=== PATIENT | female | born 1965 | race Caucasian/White ===

== ENCOUNTER 2018-04-25 12:36 | Emergency (ER) | payer BC, SELFPAY ==
[2018-04-25 12:40] VITALS: BP 128/67; PULSE 72; RESP 16; TEMP 36.4; O2SAT 98
--- NOTE | 2018-04-25 12:41 | DI.CT_ITS ---
SYMPTOMS/DIAGNOSIS: RT FLANK PAIN, HEMATURIA ABDOMINAL AND PELVIC CT: CT examination of the abdomen and pelvis was performed without contrast administration. The visualized portions of the liver and spleen are unremarkable. The visualized lung bases are clear. There is a probable gallstone. Ultrasound correlation suggested. No gross biliary dilatation seen. The pancreas is grossly unremarkable by noncontrast criteria. The adrenals unremarkable. There are nonobstructing right renal calculi. No left renal calculus or ureteral calculus seen. Low attenuation 15 mm in diameter left upper pole renal mass is identified consistent with cyst. The urinary bladder appears to have a thickened wall. Findings could represent cystitis. No gross bowel pathology identified. The appendix is unremarkable. There is a small quantity of free fluid in the pelvis which is nonspecific. No gross abdominal or pelvic adenopathy seen. The abdominal aorta is of normal diameter. No significant abdominal wall hernia seen. CONCLUSION: 1. Right sided nonobstructing renal calculi. 2. Bladder wall thickening, consider cystis. 3. Nonspecific free fluid in the pelvis. 4. Probable cholelithiasis, confirmation with abdominal ultrasound suggested.
--- NOTE | 2018-04-25 12:44 | ED.GENADUL_ITS ---
Discharge Plan Disposition Patient Disposition: HOME Condition: Poor Discharge Details Chief Complaint: Urinary Clinical Impression: Tick-borne disease, Pyelonephritis Primary Care Provider: Luther Toure ED Provider: Marlyn Mulligan Home Meds and New Rx's Prescriptions: New ciprofloxacin HCl 500 mg tablet 500 mg PO BID Qty: 14 RF: 0 doxycycline hyclate 100 mg tablet,delayed release (DR/EC) 100 mg PO BID Qty: 42 RF: 0 ondansetron [Zofran ODT] 4 mg tablet,disintegrating 4 mg PO TID PRN (Reason: nausea and vomiting) 5 Days Qty: 7 RF: 0 Continue multivitamin 1 EACH tablet 1 ea PO DAILY RF: 0 ketorolac 10 MG tablet 10 mg PO Q6H PRN RF: 0 levothyroxine [Synthroid] 75 MCG tablet 75 mcg PO DAILY RF: 0 metoclopramide HCl [Reglan] 10 MG tablet 10 mg PO DAILY RF: 0 cholecalciferol (vitamin D3) [Vitamin D3] 2,000 UNIT capsule 2,000 unit PO DAILY RF: 0 Discharge Instructions Instructions: Lyme Disease (ED), Urinary Tract Infection in Women (ED) Additional Instructions: Encourage hydration. Please keep upcoming appointment with primary care at 2: 30 PM on Monday. Take doxycycline for presumed tickborne illness, will take 5 business days to get the results from this. Will contact with any positive results. Please take ciprofloxacin for presumed pyelonephritis (kidney infection) as prescribed. Please discuss cessation of antibiotics with primary care as results come back. Keep covered when in the sun. If you develop tendon pain please discuss immediately with primary care. If you develop chest pain, shortness of breath, difficulty breathing, palpitations, inability to stay hydrated or other new/worsening symptoms please seek care urgently once again Referrals: Luther Toure [Primary Care Provider] - 04/27/18 2:30 pm Medical Decision Making <RUFINO Varghese - Last Filed: 04/25/18 16:30> [facility] Narrative Medical decision making narrative: Patient presents today with chief complaint of right flank pain that radiates into the right groin. Was sent here by PCP with concern for obstructed stone. On exam, she has right flank pain and pain in the inferior lateral abdominal wall. No pain over McBurney's point, negative Leach sign. She reports the pain is well maintained at this point after receiving IM Toradol at primary care's office. She reports that she has noted darkened urine, it was positive for RBCs at primary care with no signs of infection. Will obtain urinalysis, CBC, CMP and renal CT. Discussed plan the patient is in agreement. CT reviewed by radiologist who advised that there is incidental finding of gallstone advised follow-up with ultrasound in the future. He did note right renal stones with no hydronephrosis, no stones in the ureter. He did note bladder wall thickening consistent with cystitis and free fluid in the pelvis. Patient does not have white count, platelets are low at 101. Kidney function is appropriate. However, her AST, ALT and alk phos are elevated. I did question the patient on this and she has never had elevation like this historically she is aware of. She denies any alcohol consumption. Consulted with Lavonne Espinal NP who the primary care physician had been in contact with previously. We discussed the findings of the laboratory evaluation as well as CT. We particularly discussed the findings of the UA which was suspicious for moderate leukocyte esterase. She advised at this time there is no surgical intervention warranted which was the patient and the primary care is primary concern. With the findings of the elevated liver enzymes, she advised follow- up with this. Will obtain a abdominal ultrasound. She advised that this is without significant abnormality she would treat for pyelonephritis with ciprofloxacin. Ultrasound significant for multiple gallstones and no evidence of acute cholecystitis. Patient reports nausea, given IV Zofran. She reports complete resolution of nausea. Discussed results with the patient. I reviewed labs again and am concerned that with her low platelets and elevated LFT, that this may be tick born illness. Questioned the patient again, she advises now that she has been ill for the past 2 months. States she has been fatigued, has had diminished appetite. 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 EKG reviewed by Dr. Gates for possible block associated with tick born illness, she denies CP or palpitations. No block noted. Contacted PCP office, spoke with nursing staff, they advise they havenot assessed LFT historically. However, when platelets were checked last in 2016, they were 201. Was able to make appointment with PCP in 2 days. Patient will be treated prophylactically with doxycycline has been primarily concern for tickborne illness. Patient will be also placed on ciprofloxacin as advised by Lavonne Espinal for pyelonephritis. Advised that her discomfort in the right flank may be associated with tickborne illness. However, I would rather cover the end to the antibiotic later once the cultures have come back. We discussed timeline for tick panel and urine cultures. I advised that she encourage hydration. Tylenol and/or ibuprofen as needed for discomfort. Patient will be prescribed Zofran to help with nausea. I did discuss this with Dr. Monterroso he has both ciprofloxacin and Zofran are QT prolonging, he advised that with her EKG findings this would be safe for the patient is short-term. I also advised that she begin a probiotic while on the 2 antibiotics. We discussed new/worsening symptoms once he care urgently once again. She will follow up with her primary care in 2 days. All of her questions and concerns were addressed and she is in agreement with this plan. <Roberto Gates MD - Last Filed: 04/25/18 16:06> ECG Data Attestation: I personally reviewed and interpreted this ECG (s) as follows: Prior ECG tracings: not available for review Interpretation: normal sinus rhythm, rate of 60, normal prs, qtc, qrs, normal axis, no acute ischemic findings HPI - General Adult <RUFINO Varghsee - Last Filed: 04/25/18 16:30> General Mode of arrival: ambulatory . Date/Time Provider Initiated Documentation: 04/25/18 12:41 . Limitations to Documentation: no limitations . Information obtained by: patient . HPI Narrative: Patient is a 53-year-old female symptoms from her primary care office with chief complaint of right flank pain. She reports the pain is been present for approximately 36 hours. Is noted dark urine. Heme positive at doctor's office. Advised no signs of infection in the office. She denies any fevers or chills. States the pain radiates from the right flank down towards the right side of her groin. No change in bowel habits. Related Data Home Medications Medication Instructions Recorded Confirmed cholecalciferol (vitamin D3) 2,000 unit PO DAILY NS 06/12/17 04/25/18 [Vitamin D3] ketorolac 10 mg PO Q6H PRN tab-cap NS 06/12/17 04/25/18 levothyroxine [Synthroid] 75 mcg PO DAILY tab-cap NS 06/12/17 04/25/18 metoclopramide HCl [Reglan] 10 mg PO DAILY tab-cap NS 06/12/17 04/25/18 multivitamin 1 ea PO DAILY NS 06/12/17 04/25/18 Previous Rx's Medication Instructions Recorded ciprofloxacin HCl 500 mg PO BID #14 tab 04/25/18 doxycycline hyclate 100 mg PO BID #42 tab 04/25/18 ondansetron [Zofran ODT] 4 mg PO TID PRN 5 Days #7 tab 04/25/18 Allergies Allergy/AdvReac Type Severity Reaction Status Date / Time sulfamethoxazole Allergy Unverified 04/25/18 12:43 [From Bactrim] trimethoprim [From Bactrim] Allergy Unverified 04/25/18 12:43 General Stated Complaint: Urinary MARIS: 3 Review of Systems <RUFINO Varghese - Last Filed: 04/25/18 16:30> Constitutional Reports as per HPI, Reports body ache(s), Reports chills, Reports fatigue, Reports fever(s), Denies headache(s), Reports malaise and Reports poor appetite Eyes Patient Denies change in vision ENT Denies headache(s) Cardiovascular Denies chest pain, Denies chest pain at rest, Denies chest pain with activity, Denies pedal edema, Denies irregular heart rhythm, Denies leg edema, Denies lightheadedness, Denies dyspnea and Denies dyspnea on exertion Respiratory Denies cough, Denies dyspnea and Denies dyspnea on exertion Gastrointestinal Reports as per HPI, Reports abdominal pain, Denies change in bowel habits, Reports nausea, Reports vomiting (vomited x 1) and Denies hematemesis Genitourinary Reports as per HPI, Denies urinary frequency, Denies difficulty voiding, Denies dyspareunia, Denies dysuria, Denies pelvic pain, Reports flank pain (right) and Denies urinary urgency Musculoskeletal Denies abnormal gait and Reports myalgias Integumentary/Breasts Denies rash and Denies skin pain Neurologic Denies abnormal speech, Denies abnormal gait, Denies behavioral changes, Denies headache(s) and Denies focal weakness Psychiatric Denies behavioral changes Endocrine Reports fatigue Exam <RUFINO Varghese Last Filed: 04/25/18 16:30> Const General: cooperative, no acute distress, well developed, well groomed and ill appearing (patient appears uncomfortable and is noted to be pale) Nutritional Appearance: thin Orientation: alert and awake HENID Head: normal to inspection Mouth: mucous membranes dry (patient appears dry) Resp Effort & Inspection: normal respiratory effort, able to speak in complete sentences and no respiratory distress Auscultation: clear to auscultation bilaterally, no rales, no rhonchi and no wheezes Cardio Rate: regular rate Rhythm: regular rhythm Heart Sounds: S1 normal and S2 normal GI Inspection: no edema, non-distended, incision (well healed incisions), no large pannus and no visible herniation Palpation: soft, no hepatosplenomegaly, not firm, no guarding, no hepatomegaly, no hernias, no masses, not rigid and nontender (negative Murphies, no pain over McBurnies point) Percussion: normal to percussion Auscultation: normal bowel sounds Back/Spine/Pelvis Back: CVA tenderness (right side), No erythema and No warmth Skin General skin exam: no rashes or lesions noted Lesions: no lesions Rashes: no rashes Trauma: no lacerations or abrasions Neuro General: alert, awake and oriented x3 Cognition: normal cognition Speech: speech normal Gait: normal gait Extrem General: normal to inspection, no pedal edema, no calf tenderness and normal gait Psych Appearance: grossly normal and well kempt Mental Status: mental status grossly normal Speech and Movement: speech and movement normal Mood: congruent mood Affect: normal affect Course <RUFINO Varghese - Last Filed: 04/25/18 16:30> Vital Signs Temperature 36.4 C L 04/25/18 12:40 Pulse 72 04/25/18 12:40 Respiratory Rate 16 04/25/18 12:40 Blood Pressure 128/67 04/25/18 12:40 Pulse Oximetry 98 04/25/18 12:40 Temperature 36.4 C L 04/25/18 12:40 Pulse 72 04/25/18 12:40 Respiratory Rate 16 04/25/18 12:40 Blood Pressure 128/67 04/25/18 12:40 Pulse Oximetry 98 04/25/18 12:40
[2018-04-25 12:59] LABS: Bilirubin Negative (Negative); Blood Moderate (Negative); Clarity Cloudy; Glucose Negative (Negative); Ketones Negative (Negative); Leukocyte Esterase Moderate (Negative); Nitrite Negative (Negative); Urobilinogen 0.2 EU/dL (Up TO 0.2)
[2018-04-25] MEDS: Normal Saline 1,000 ML 1000 ML IV (13:00)
[2018-04-25 13:06] LABS: Bacteria Many HPF (Negative); WBC >50 HPF (0-5)
[2018-04-25 13:07] LABS: C & S Indicated? Yes
[2018-04-25 13:21] LABS: Abs Immature Grans 0.01 k/cumm (0.0-0.09); Absolute Basophil Count 0.01 k/cumm (0.0-0.2); Absolute Eosinophil Count 0.03 k/cumm (0.0-0.7); Absolute Lymphocyte Count 0.58 k/cumm (1.2-3.4); Absolute Monocyte Count 0.56 k/cumm (0.11-0.7); Absolute Neutrophil Count 5.26 k/cumm (1.2-6.7); Basophils % 0.2; Eosinophils % 0.5; HCT 34.8 % (36.0-46.0); HGB 12.1 g/dL (12.0-15.5); Immature Grans % 0.2; Mean Corp. HGB Concentration 34.8 g/dL (32.0-36.0); Mean Corpuscular Hemoglobin 31.2 pg (27.0-33.0); Mean Corpuscular Volume 89.7 fL (80-95); Mean Platelet Volume 10.2 fL (8.0-11.0); Monocytes % 8.7; Neutrophils % 81.4; Platelet Count 102 x1000/uL (130-400); RBC 3.88 m/cumm (4.00-5.20); RBC Distribution Width 12.4 % (11.7-14.6); White Blood Cell Count 6.45 k/cumm (4.4-10.8)
[2018-04-25 13:32] LABS: ALT 243 U/L (12-78); AST 218 U/L (15-37); Albumin 3.2 g/dL (3.4-5.0); Alkaline Phosphatase 124 U/L (46-116); BUN 14 mg/dL (7-18); Bilirubin, Total 1.1 mg/dL (0.2-1.0); CREATININE 0.61 mg/dL (0.55-1.02); Calcium 8.2 mg/dL (8.5-10.1); Chloride 98 mmol/L (98-107); Glucose 130 mg/dL (70-100); Potassium 3.4 mmol/L (3.5-5.1); Sodium 134 mmol/L (136-145); Total Protein 6.3 g/dL (6.4-8.2)
[2018-04-25 13:38] LABS: Anion Gap 7.1 mmol/L (3-11); CO2 28.9 mmol/L (21.0-32.0)
--- NOTE | 2018-04-25 15:09 | DI.US_ITS ---
SYMPTOMS/DIAGNOSIS: RIGHT FLANK PAIN, ELEVATED ALT/AST ABDOMINAL ULTRASOUND: Visualized liver parenchyma is normal in appearance. Note is made of cholelithiasis with a single mobile gallstone in the gallbladder fundus. Gallbladder wall is of normal diameter and no pericholecystic fluid collection or biliary dilatation is seen. The pancreas is unremarkable as visualized. The spleen and kidneys are unremarkable in appearance. Abdominal aorta and IVC are of normal diameter. CONCLUSION: Cholelithiasis.
[2018-04-25] MEDS: Ondansetron 4 MG/2 ML VIAL IVP (15:33)
[2018-04-25 16:20] VITALS: BP 137/70; PULSE 66; RESP 16; TEMP 36.5; O2SAT 98
[2018-04-26 11:34] LABS: Lyme Ab w Rflx to Lyme Confirm Negative
[2018-04-27 21:12] LABS: Anaplasma phagocytophilum Negative (Negative); B. miyamotoi PCR Negative (Negative); Babesia divergens/MO-1 Negative (Negative); Babesia duncani Negative (Negative); Babesia microti Negative (Negative); Ehrlichia chaffeensis Negative (Negative); Ehrlichia ewingii/canis Negative (Negative); Ehrlichia muris eauclairensis Negative (Negative)
== END 2018-04-25 16:21 | disposition home or self-care (01) ==
PROVIDERS: Emergency Provider Physician Assistant; PCP Family Medicine
DX: N12 Tubulo-interstitial nephritis, not specified as acute or chronic (principal); R53.83 Other fatigue; W57.XXXA Bitten or stung by nonvenomous insect and other nonvenomous arthropods, initial encounter; R94.5 Abnormal results of liver function studies
CPT/HCPCS: 36415; 80053; 87077; 93005; 96361; 96374; 99285; 74176; 76700; 81003; 81015; 85025; 86618; 87086; 87186; 87798; 93010; J2405

== ENCOUNTER 2018-10-07 21:37 | Emergency (ER) | payer BC, SELFPAY ==
[2018-10-07] VITALS (39 sets, daily range): BP systolic 58–120; BP diastolic 32–87; PULSE 58–118; RESP 10–41; TEMP 36.4; O2SAT 96–100
[2018-10-07] MEDS: Normal Saline 1,000 ML 1000 ML IV ×2 (21:40→23:45)
--- NOTE | 2018-10-07 21:51 | ED.GENADUL_ITS ---
Discharge Plan Disposition Patient Disposition: [facility] Condition: Critical Discharge Details Chief Complaint: Abd Prob Clinical Impression: Retroperitoneal hemorrhage, Hypotension, Abdominal pain Primary Care Provider: Luther Toure ED Provider: Teresa Winters Home Meds and New Rx's Prescriptions: No Action multivitamin 1 EACH tablet 1 ea PO DAILY RF: 0 ketorolac 10 MG tablet 10 mg PO Q6H PRN RF: 0 levothyroxine [Synthroid] 75 MCG tablet 75 mcg PO DAILY RF: 0 metoclopramide HCl [Reglan] 10 MG tablet 10 mg PO DAILY RF: 0 cholecalciferol (vitamin D3) [Vitamin D3] 2,000 UNIT capsule 2,000 unit PO DAILY RF: 0 ciprofloxacin HCl 500 mg tablet 500 mg PO BID Qty: 14 RF: 0 doxycycline hyclate 100 mg tablet,delayed release (DR/EC) 100 mg PO BID Qty: 42 RF: 0 Medical Decision Making 53-year-old female with a history of hypothyroidism, hysterectomy who presents with sudden onset of abdominal pain and vomiting x 1 over the past 3 hours. Patient required assistance getting out of car. She was brought back to room in a wheelchair and was slumped over to the side, pale, and decreased responsiveness. Patient was wearing a zio patch which stated was for recent fluctuations in heart rate thought to be due to her thyroid. Patient was able to answer questions, mainly complaining of severe diffuse abdominal pain. She denies any chest pain or shortness of breath. She stated she thought her symptoms were due to gas. Systolic blood pressure 120 on arrival. Patient appears pale, slightly uncomfortable, blood pressure down trended to systolic of 90s. Heart rate remained within normal limits, but also up trending from 60s-80s. Abdomen soft, diffusely tender, some guarding, no rigidity. Portable chest x-ray revealed no free air. EKG noted a rate of 67, sinus, no acute ST elevation or depression. Patient had 2 large-bore peripheral IVs placed upon arrival. Patient was given a dose of morphine, Zofran and IV fluids on arrival. Blood pressure began to down trend, systolic as low as 60s. Patient complained of persistent abdominal pain. There is no pulsatile mass. Concern for acute abdomen, differential diagnosis ruptured AAA, bowel perforation, hemorrhage, small bowel obstruction. 2 units of uncrossed match blood ordered per Labs reviewed and hemoglobin stable at 13. Potassium 3.1. Troponin negative. CT noted a retroperitoneal fluid is suspicious for hemorrhage, could be perforated duodenal ulcer. No acute source of extravasation/bleeding noted. 2330 --with [facility] surgery Dr. Reyes - accepts pt for transfer to ED. Reviewed images and unsure of diagnosis. Pt's BP improved to systolic of low 100s. Discussed that there does not appear to be need for emergent OR here at [facility] and can transfer to [facility] now with continued prbc transfusion. Will continue ivf, pain control. Pt given total of 3 L IVF, 2 units of blood here and will send with 1 unit prbc. Patient and informed of plan and agreeable with transfer. BP improved to systolic of low 100s. Medical Records Medical records reviewed: Yes I reviewed the patient's medical records. Imaging Data Radiologic Study: Radiologist's impression: CT Angiography Abdomen and Pelvis With Contrast EXAM DATE/TIME: 10/07/2018 10:30 PM FINDINGS: VASCULATURE: Aorta: No aortic aneurysm. No aortic dissection. Celiac trunk and mesenteric arteries: No occlusion or significant stenosis. Renal arteries: No occlusion or significant stenosis. Right iliac arteries: No occlusion or significant stenosis. Right femoral/popliteal arteries: No occlusion or significant stenosis of the imaged proximal femoral artery. The popliteal artery was not imaged. Left iliac arteries: No occlusion or significant stenosis. Left femoral/popliteal arteries: No occlusion or significant stenosis of the imaged proximal femoral artery. The popliteal artery was not imaged. ABDOMEN: Liver: No mass. Gallbladder and bile ducts: Unremarkable. No calcified stones. No ductal dilation. Pancreas: Unremarkable. No mass. No ductal dilation. Spleen: 3 cm splenic lesion, unchanged in size and likely represents hemangioma. Adrenals: Unremarkable. No mass. Kidneys and ureters: Unremarkable. No solid mass. No hydronephrosis. Stomach and bowel: High-density retroperitoneal fluid suspicious for hemorrhage, predominantly surrounding the pancreas and duodenum, could be related to perforated duodenal ulcer or pancreatitis with other etiologies not excluded. Colonic diverticula. Appendix: No evidence of appendicitis. PELVIS: Bladder: Unremarkable. No mass. Reproductive: Unremarkable as visualized. ABDOMEN and PELVIS: Intraperitoneal space: Small ascites with areas of minimal increased density likely related to blood products. Bones/joints: No acute fracture. No dislocation. Soft tissues: Unremarkable. Lymph nodes: Unremarkable. No enlarged lymph nodes. IMPRESSION: 1. High-density retroperitoneal fluid suspicious for hemorrhage, predominantly surrounding the pancreas and duodenum, could be related to perforated duodenal ulcer or pancreatitis with other etiologies not excluded. 2. Small ascites with areas of minimal increased density likely related to blood products. XR Chest, 1 View EXAM DATE/TIME: 10/07/2018 9:49 PM FINDINGS: Lungs: Unremarkable. No consolidation. Pleural space: Unremarkable. No pleural effusion. No pneumothorax. Heart/Mediastinum: Unremarkable. No cardiomegaly. Bones/joints: Unremarkable. IMPRESSION: No acute findings. Lab Data Lab results reviewed: Yes I reviewed the patient's lab results. 10/07/18 22:20 Urine - Reflex from Ua Urine Culture - Pending Laboratory Tests Range/Units 10/07/18 10/07/18 10/07/18 22:00 22:00 22:00 WBC (4.4-10.8) k/cumm 12.17 H RBC (4.00-5.20) m/cumm 4.13 Hgb (12.0-15.5) g/dL 13.0 Hct (36.0-46.0) % 37.2 MCV (80-95) fL 90.1 MCH (27.0-33.0) pg 31.5 MCHC (32.0-36.0) g/dL 34.9 RDW (11.7-14.6) % 12.5 Plt Count (130-400) x1000/uL 255 MPV (8.0-11.0) fL 10.3 Immature Gran % 0.2 Neutrophils % 68.9 Lymphocytes % 25.0 Monocytes % 5.1 Eosinophils % 0.6 Basophils % 0.2 Absolute Neutrophils (1.2-6.7) k/cumm 8.39 H Absolute Lymphocytes (1.2-3.4) k/cumm 3.04 Absolute Monocytes (0.11-0.7) k/cumm 0.62 Absolute Eosinophils (0.0-0.7) k/cumm 0.07 Absolute Basophils (0.0-0.2) k/cumm 0.02 PT (9.3-11.0) sec INR (0.9-1.1) APTT (21.0-31.4) sec Sodium (136-145) mmol/L 142 Potassium (3.5-5.1) mmol/L 3.1 L Chloride (98-107) mmol/L 102 Carbon Dioxide (21.0-32.0) mmol/L 28.0 Anion Gap (3-11) mmol/L 12.0 H BUN (7-18) mg/dL 18 Creatinine (0.55-1.02) mg/dL 0.80 Estimated GFR/1.73 m2 (mL/min/1.73m2) >= 60.00 Glucose (70-100) mg/dL 196 H Calcium (8.5-10.1) mg/dL 9.4 Magnesium (1.8-2.4) mg/dL 1.8 Total Bilirubin (0.2-1.0) mg/dL 0.4 AST (15-37) U/L 25 ALT (12-78) U/L 46 Alkaline Phosphatase (46-116) U/L 90 Troponin I (0.00-0.06) ng/mL < 0.02 Total Protein (6.4-8.2) g/dL 7.2 Albumin (3.4-5.0) g/dL 4.0 Lipase (73-393) U/L 252 TSH (0.358-3.74) uIU/mL Free T4 (0.76-1.46) ng/dL Urine Color (Yellow) Urine Clarity Urine pH (5-8) Ur Specific [place] (1.005-1.025) Urine Protein (Negative) mg/dL Urine Ketones (Negative) mg/dL Urine Blood (Negative) Urine Nitrite (Negative) Urine Bilirubin (Negative) Urine Urobilinogen (Up TO 0.2) EU/dL Ur Leukocyte Esterase (Negative) Urine RBC (0-2) Urine WBC (0-5) HPF Ur Epithelial Cells (Negative) HPF Urine Crystals (Negative) HPF Urine Bacteria (Negative) HPF Urine Casts (Negative) LPF Urine Mucus (Negative) Urine Other (Negative) Ur Culture Indicated? Urine Glucose (Negative) mg/dL Patient ABO/Rh O Positive Antibody Screen Negative Crossmatch See Detail Range/Units 10/07/18 10/07/18 10/07/18 22:00 22:00 22:20 WBC (4.4-10.8) k/cumm RBC (4.00-5.20) m/cumm Hgb (12.0-15.5) g/dL Hct (36.0-46.0) % MCV (80-95) fL MCH (27.0-33.0) pg MCHC (32.0-36.0) g/dL RDW (11.7-14.6) % Plt Count (130-400) x1000/uL MPV (8.0-11.0) fL Immature Gran % Neutrophils % Lymphocytes % Monocytes % Eosinophils % Basophils % Absolute Neutrophils (1.2-6.7) k/cumm Absolute Lymphocytes (1.2-3.4) k/cumm Absolute Monocytes (0.11-0.7) k/cumm Absolute Eosinophils (0.0-0.7) k/cumm Absolute Basophils (0.0-0.2) k/cumm PT (9.3-11.0) sec 9.9 INR (0.9-1.1) 1.0 APTT (21.0-31.4) sec 19.8 L Sodium (136-145) mmol/L Potassium (3.5-5.1) mmol/L Chloride (98-107) mmol/L Carbon Dioxide (21.0-32.0) mmol/L Anion Gap (3-11) mmol/L BUN (7-18) mg/dL Creatinine (0.55-1.02) mg/dL Estimated GFR/1.73 m2 (mL/min/1.73m2) Glucose (70-100) mg/dL Calcium (8.5-10.1) mg/dL Magnesium (1.8-2.4) mg/dL Total Bilirubin (0.2-1.0) mg/dL AST (15-37) U/L ALT (12-78) U/L Alkaline Phosphatase (46-116) U/L Troponin I (0.00-0.06) ng/mL Total Protein (6.4-8.2) g/dL Albumin (3.4-5.0) g/dL Lipase (73-393) U/L TSH (0.358-3.74) uIU/mL 6.21 H Free T4 (0.76-1.46) ng/dL 1.06 Urine Color (Yellow) Yellow Urine Clarity Clear Urine pH (5-8) 5.5 Ur Specific [place] (1.005-1.025) >= 1.030 H Urine Protein (Negative) mg/dL 100 H Urine Ketones (Negative) mg/dL 80 H Urine Blood (Negative) Negative Urine Nitrite (Negative) Negative Urine Bilirubin (Negative) Negative Urine Urobilinogen (Up TO 0.2) EU/dL 0.2 Ur Leukocyte Esterase (Negative) Trace H Urine RBC (0-2) 3-5 H Urine WBC (0-5) HPF 5-10 Ur Epithelial Cells (Negative) HPF Rare Urine Crystals (Negative) HPF Negative Urine Bacteria (Negative) HPF Moderate Urine Casts (Negative) LPF Negative Urine Mucus (Negative) Heavy Urine Other (Negative) Negative Ur Culture Indicated? Yes Urine Glucose (Negative) mg/dL 500 H Patient ABO/Rh Antibody Screen Crossmatch ECG Data Attestation: I personally reviewed and interpreted this ECG (s) as follows: Interpretation: Rate of 67, sinus, T wave inversion in V2 seen in previous EKG, no acute ST elevation or depression. QTc 437. QRS 92. HPI General Mode of arrival: ambulatory . Date/Time Provider Initiated Documentation: 10/07/18 21:39 . Limitations to Documentation: no limitations . Information obtained by: patient . HPI Narrative: Patient is a 53-year-old female who presents to the ED with complaint of severe abdominal pain for the past few hours. Patient vomited once in the car. Patient had to be assisted out of the car on arrival to ED due to significant abdominal pain. Patient is currently wearing a zio patch placed by her doctor for recent fluctuations in heart rate thought to be due to her thyroid medication. She denies any recent syncope. Related Data Home Medications Medication Instructions Recorded Confirmed cholecalciferol (vitamin D3) 2,000 unit PO DAILY NS 06/12/17 04/25/18 [Vitamin D3] ketorolac 10 mg PO Q6H PRN tab-cap NS 06/12/17 04/25/18 levothyroxine [Synthroid] 75 mcg PO DAILY tab-cap NS 06/12/17 04/25/18 metoclopramide HCl [Reglan] 10 mg PO DAILY tab-cap NS 06/12/17 04/25/18 multivitamin 1 ea PO DAILY NS 06/12/17 04/25/18 ciprofloxacin HCl 500 mg PO BID #14 tab 04/25/18 doxycycline hyclate 100 mg PO BID #42 tab 04/25/18 Previous Rx's Medication Instructions Recorded ciprofloxacin HCl 500 mg PO BID #14 tab 04/25/18 doxycycline hyclate 100 mg PO BID #42 tab 04/25/18 Allergies Allergy/AdvReac Type Severity Reaction Status Date / Time sulfamethoxazole Allergy Unverified 04/25/18 12:43 [From Bactrim] trimethoprim [From Bactrim] Allergy Unverified 04/25/18 12:43 General MARIS: 3 Review of Systems Review of Systems All systems reviewed & are unremarkable except as noted in HPI and below Constitutional Reports as per HPI, Denies chills and Denies fever(s) Eyes Denies blurry vision ENT Denies dizziness, Denies sore throat and Denies throat swelling Cardiovascular Denies chest pain and Denies dyspnea Respiratory Denies cough and Denies dyspnea Gastrointestinal Reports abdominal pain, Denies diarrhea and Reports vomiting Genitourinary Denies hematuria and Denies dysuria Musculoskeletal Denies back pain and Denies numbness Integumentary/Breasts Denies lesions and Denies rash Neurologic Denies dizziness, Denies focal weakness and Denies numbness Allergic/Immunologic Denies throat swelling PFSH Medical History Breast mass Hypothyroidism Surgical History section Colonoscopy - MAC (07/10/17) Colostomy Hernia repair hysterectomy, partial Family History Father Liver cancer Colon cancer A-fib Social History Smoking and Tabacco status: Never alcohol intake: never substance use type: does not use Exam Const General: cooperative, healthy appearing and no acute distress HENMT Head: normal to inspection Face and sinus: normal facial exam Eyes General: appearance normal, both eyes and all related structures Pupils: PERRL EOM: EOM intact bilaterally Neck Neck: normal visual inspection and No submandibular swelling Lymphatic: no lymphadenopathy noted Chest Chest: normal inspection of the chest and no tenderness Resp Effort & Inspection: normal respiratory effort and able to speak in complete sentences Auscultation: clear to auscultation bilaterally Cardio Rate: regular rate Rhythm: regular rhythm GI Inspection: normal to inspection Palpation: soft, not firm, not rigid and nontender Auscultation: normal bowel sounds Back/Spine/Pelvis Thoracic/Lumbar Spine: thoracic and lumbar spine normal to inspection Pelvis: no pain with anterior-posterior compression Skin General skin exam: no rashes or lesions noted Neuro General: alert, awake and oriented x3 Cognition: normal cognition Speech: speech normal Motor: muscle tone normal throughout Sensory Exam: no sensory deficits noted Extrem General: normal to inspection, full ROM, normal capillary refill, no calf tenderness bilaterally and no edema Psych Appearance: grossly normal Mental Status: mental status grossly normal Speech and Movement: speech and movement normal Affect: normal affect
[2018-10-07] MEDS: Ondansetron 4 MG/2 ML VIAL IVP (21:58)
[2018-10-07 22:10] LABS: Abs Immature Grans 0.03 k/cumm (0.0-0.09); Absolute Basophil Count 0.02 k/cumm (0.0-0.2); Absolute Eosinophil Count 0.07 k/cumm (0.0-0.7); Absolute Lymphocyte Count 3.04 k/cumm (1.2-3.4); Absolute Monocyte Count 0.62 k/cumm (0.11-0.7); Absolute Neutrophil Count 8.39 k/cumm (1.2-6.7); Basophils % 0.2; Eosinophils % 0.6; HCT 37.2 % (36.0-46.0); Immature Grans % 0.2; Mean Corp. HGB Concentration 34.9 g/dL (32.0-36.0); Mean Corpuscular Hemoglobin 31.5 pg (27.0-33.0); Mean Corpuscular Volume 90.1 fL (80-95); Mean Platelet Volume 10.3 fL (8.0-11.0); Monocytes % 5.1; Neutrophils % 68.9; Platelet Count 255 x1000/uL (130-400); RBC 4.13 m/cumm (4.00-5.20); RBC Distribution Width 12.5 % (11.7-14.6); White Blood Cell Count 12.17 k/cumm (4.4-10.8)
--- NOTE | 2018-10-07 22:20 | DI.RAD_ITS ---
SYMPTOMS/DIAGNOSIS: DIFFUSE ABD PAIN, ? FREE AIR PORTABLE CHEST: The cardiac and mediastinal contours have a normal appearance. The lungs are well inflated and clear. No pneumothorax or rib fracture is seen. IMPRESSION: Negative portable chest.
[2018-10-07 22:28] LABS: ALT 46 U/L (12-78); AST 25 U/L (15-37); Alkaline Phosphatase 90 U/L (46-116); BUN 18 mg/dL (7-18); Bilirubin, Total 0.4 mg/dL (0.2-1.0); Calcium 9.4 mg/dL (8.5-10.1); Chloride 102 mmol/L (98-107); Glucose 196 mg/dL (70-100); Lipase 252 U/L (73-393); Magnesium 1.8 mg/dL (1.8-2.4); Potassium 3.1 mmol/L (3.5-5.1); Sodium 142 mmol/L (136-145); Total Protein 7.2 g/dL (6.4-8.2)
[2018-10-07 22:29] LABS: Troponin I < 0.02 ng/mL (0.00-0.06)
[2018-10-07 22:29] LABS: Bilirubin Negative (Negative); Blood Negative (Negative); Clarity Clear; Glucose 500 mg/dL (Negative); Ketones 80 mg/dL (Negative); Leukocyte Esterase Trace (Negative); Nitrite Negative (Negative); Specific Gravity >= 1.030 (1.005-1.025); Urobilinogen 0.2 EU/dL (Up TO 0.2); pH 5.5 (5-8)
[2018-10-07 22:56] LABS: Bacteria Moderate HPF (Negative); C & S Indicated? Yes; Casts Negative LPF (Negative); Crystals Negative HPF (Negative); Epithelial Cells Rare HPF (Negative); Mucus Heavy (Negative); Other Cells Negative (Negative)
[2018-10-07] MEDS: Omnipaque 350 MG/ML 100 ML BTL IJ (22:58)
--- NOTE | 2018-10-07 22:58 | DI.CT_ITS ---
SYMPTOMS/DIAGNOSIS: DIFFUSE ABD PAIN, ? APPY, SBO, DIVERTICULITIS CT OF THE ABDOMEN AND PELVIS: Comparison is made with renal colic CT dated [id number]. Images were performed from the lung bases through the ischial tuberosities after IV and without oral contrast. Evaluation of the bowel is limited without oral contrast and lack of intra-abdominal fat. There is a large amount of high density material seen in the retroperitoneum surrounding the pancreas. There is no visible active extravasation of contrast. The findings could be secondary to pancreatitis. No focal duodenal abnormality is identified. There is a small hiatal hernia. There is no small or large bowel dilatation. There is a moderate quantity of stool. Mild diverticulosis is seen of the sigmoid. Blood products are also seen low in the pelvis. The patient is status post hysterectomy. The bladder is unremarkable. The heart size is normal. The lung bases are clear. The liver, adrenals and kidneys are unremarkable. There is a exophytic lesion on the spleen which shows contrast enhancement and could represent a hemangioma. Stones are noted in the gallbladder. There is no gallbladder wall thickening or biliary dilatation. The aorta and iliac arteries are normal in diameter. IMPRESSION: Large amount of hemorrhage in the retroperitoneum as well as in the lower pelvis may be secondary to pancreatitis. The head of the pancreas is not well defined.
--- NOTE | 2018-10-07 23:04 | DI.VRAD_ITS ---
EXAM: XR Chest, 1 View EXAM DATE/TIME: 10/07/2018 9:49 PM CLINICAL HISTORY: 53 years old, female; Pain; Other: Abdominal; Patient HX: Diffuse abdominal pain, R/O free air TECHNIQUE: XR of the chest, 1 view. COMPARISON: No relevant prior studies available. FINDINGS: Lungs: Unremarkable. No consolidation. Pleural space: Unremarkable. No pleural effusion. No pneumothorax. Heart/Mediastinum: Unremarkable. No cardiomegaly. Bones/joints: Unremarkable. IMPRESSION: No acute findings. Dictated and Authenticated by: Roberto Gonzalez MD. Ordering:SARA Moore MD
--- NOTE | 2018-10-07 23:21 | DI.VRAD_ITS ---
Addendum created by Roberto Gonzalez MD on 10/07/2018 11:25:38 PM EST THIS REPORT CONTAINS FINDINGS THAT MAY BE CRITICAL TO PATIENT CARE. The findings were discussed with audelia goddard at 11:23 PM EST on 10/07/2018. The findings were acknowledged and understood. Initial report created on 10/07/2018 11:21:09 PM EST EXAM: CT Angiography Abdomen and Pelvis With Contrast EXAM DATE/TIME: 10/07/2018 10:30 PM CLINICAL HISTORY: 53 years old, female; Pain; Abdominal pain; Generalized; Prior surgery; Surgery date: 6+ months; Surgery type: Hysterectomy; Patient HX: Acute severe abd pain, TECHNIQUE: Axial computed tomographic angiography images of the abdomen and pelvis with intravenous contrast material, including non-contrast images if performed. MIP and/or 3D reconstructed images were created and reviewed. All CT scans at this facility use at least one of these dose optimization techniques: automated exposure control; mA and/or kV adjustment per patient size (includes targeted exams where dose is matched to clinical indication); or iterative reconstruction. CONTRAST: Contrast Material: 100 ml of oMNIPAQUE 350; Contrast Route: iv COMPARISON: CT renal colic wo 04/25/2018 1:01 PM FINDINGS: VASCULATURE: Aorta: No aortic aneurysm. No aortic dissection. Celiac trunk and mesenteric arteries: No occlusion or significant stenosis. Renal arteries: No occlusion or significant stenosis. Right iliac arteries: No occlusion or significant stenosis. Right femoral/popliteal arteries: No occlusion or significant stenosis of the imaged proximal femoral artery. The popliteal artery was not imaged. Left iliac arteries: No occlusion or significant stenosis. Left femoral/popliteal arteries: No occlusion or significant stenosis of the imaged proximal femoral artery. The popliteal artery was not imaged. ABDOMEN: Liver: No mass. Gallbladder and bile ducts: Unremarkable. No calcified stones. No ductal dilation. Pancreas: Unremarkable. No mass. No ductal dilation. Spleen: 3 cm splenic lesion, unchanged in size and likely represents hemangioma. Adrenals: Unremarkable. No mass. Kidneys and ureters: Unremarkable. No solid mass. No hydronephrosis. Stomach and bowel: High-density retroperitoneal fluid suspicious for hemorrhage, predominantly surrounding the pancreas and duodenum, could be related to perforated duodenal ulcer or pancreatitis with other etiologies not excluded. Colonic diverticula. Appendix: No evidence of appendicitis. PELVIS: Bladder: Unremarkable. No mass. Reproductive: Unremarkable as visualized. ABDOMEN and PELVIS: Intraperitoneal space: Small ascites with areas of minimal increased density likely related to blood products. Bones/joints: No acute fracture. No dislocation. Soft tissues: Unremarkable. Lymph nodes: Unremarkable. No enlarged lymph nodes. IMPRESSION: 1. High-density retroperitoneal fluid suspicious for hemorrhage, predominantly surrounding the pancreas and duodenum, could be related to perforated duodenal ulcer or pancreatitis with other etiologies not excluded. 2. Small ascites with areas of minimal increased density likely related to blood products. Dictated and Authenticated by: Roberto Gonzalez MD. Ordering:SARA Moore MD
--- NOTE | 2018-10-07 23:34 | NUR.NOTE ---
Nursing Note: unable to obtain or verify pt's medication r/t unstable presentation of pt. does not know meds there's something for thyroid but that's all I know.
--- NOTE | 2018-10-07 23:36 | NUR.NOTE ---
Nursing Note: 2 units transfused as rapid transfusion protocol on paper. Double check done with Rowan FRANCISCO. Pressure bag used for severe hypotension.
[2018-10-08] VITALS (9 sets, daily range): BP systolic 96–104; BP diastolic 63–76; PULSE 79–89; RESP 11–28; TEMP 36.4; O2SAT 100
[2018-10-08 00:07] LABS: PTT Activated 19.8 sec (21.0-31.4); Prothrombin Time 9.9 sec (9.3-11.0)
[2018-10-08 00:17] LABS: TSH (W/Ref FT4) 6.21 uIU/mL (0.358-3.74)
[2018-10-08 00:34] LABS: FREE T4 1.06 ng/dL (0.76-1.46)
[2018-10-08] MEDS: Prochlorperazine 10 MG/2 ML VIAL IVP (00:56)
--- NOTE | 2018-10-09 10:32 | NUR.NOTE ---
Nursing Note: Faxed to [facility] the urine culture result. Magalie Kerr.
== END 2018-10-08 00:40 | disposition short-term general hospital (02) ==
PROVIDERS: Emergency Provider Physician Assistant; PCP Family Medicine
DX: R10.84 Generalized abdominal pain (principal); R58 Hemorrhage, not elsewhere classified; I95.9 Hypotension, unspecified
CPT/HCPCS: 36430; 80053; 83690; 86850; 86900; 86901; 86920; 87077; 93005; 96361; 96374; 96375; 99285; 71045; 74174; 81003; 81015; 83735; 84439; 84443; 84484; 85025; 85610; 85730; 87086; 87186; 93010; J0780; J2405; J3490; P9016

== ENCOUNTER 2019-07-31 23:18 | Emergency (ER) | payer BC, SELFPAY ==
--- NOTE | 2019-07-31 01:12 | DI.CT_ITS ---
EXAM: CT THORAX ABD/PEL CTA CLINICAL HISTORY: left lateral chest pain,left upper abd pain TECHNIQUE: Imaging Protocol: Axial computed tomography images with coronal and sagittal reformatted images were created and reviewed CONTRAST MATERIAL: Intravenous: Omnipaque 350 Contrast volume:100 mL contrast route:IV - Oral: No COMPARISON: CT ABDOMEN/ PELVIS CTA from 10/07/2018 FINDINGS: CHEST: Tracheobronchial tree: Patent where visualized. Mediastinum and Dannielle: No dominant adenopathy or fluid collection. Pulmonary parenchyma: No consolidation or dominant measurable mass. No architectural distortion. Pleura: No effusion or pneumothorax. Lymph nodes: Within normal limits. Aorta: Thoracic portion non-dilated. Heart: No cardiomegaly, pericardial effusion or coronary artery calcifications. Pulmonary arteries: Unremarkable. Bones: Degenerative changes. ABDOMEN: Liver: Normal density. No measurable mass. Gallbladder and biliary tract: Cholecystectomy. No biliary ductal dilatation. Pancreas: Normal density, no abnormal calcifications or inflammatory process. Spleen: Normal. Kidneys: Normal size, contour and axis. No radiodense stones or obstructive uropathy. 1.4 centimeter simple cyst. No solid mass. Adrenal glands: No masses seen. Aorta: No aneurysm, occlusion or dissection. Celiac axis and mesenteric arteries: No occlusion or significant stenosis. Renal arteries: No occlusion or significant stenosis. Iliac arteries: No occlusion or significant stenosis. Lymph nodes: Within normal limits. PELVIS: Bladder: Symmetric distention, no gross wall thickening. Bowel: No obstruction or bowel wall thickening. No evidence of acute appendicitis. Peritoneal cavity: No ascites, collection or mesenteric inflammatory response. Bones: Within normal limits. Reproductive organs: Status post hysterectomy. IMPRESSION: 1. No acute abdominal or pelvic process. 2. No acute thoracic abnormality. DATA REPOSITORY: All CT scans at this facility are submitted to the National Radiology Data Registry (NRDR) Dose Index Registry (DIR) with the [employer] ([employer]). RADIATION OPTIMIZATION: All CT scans at this facility use at least one of these dose optimization te chniques: automated exposure control; mA and/or kV adjustment per patient size (includes targeted exa ms where dose is matched to clinical indication); or iterative reconstruction.
[2019-07-31 23:21] VITALS: BP 147/60; PULSE 78; RESP 20; TEMP 36.8; O2SAT 99
[2019-07-31 23:26] VITALS: RESP 18
--- NOTE | 2019-07-31 23:29 | ED.GENADUL_ITS ---
Discharge Plan Disposition Patient Disposition: HOME Condition: Improving Discharge Details Chief Complaint: GenMedical Clinical Impression: Abdominal pain, Near syncope Primary Care Provider: Luther Toure ED Provider: Werner Sargent [place] Meds and New Rx's Prescriptions: New hyoscyamine sulfate [Levsin/SL] 0.125 mg tablet, sublingual 0.125 mg SL BID-QID PRN (Reason: intestinal spasm) Qty: 30 RF: 0 Continued levothyroxine [Synthroid] 75 MCG tablet 50 mcg PO DAILY RF: 0 Discharge Instructions Instructions: Abdominal Pain (ED), Near Syncope (ED) Additional Instructions: Work-up tonight does not show any acute pathology. Laboratory studies essentially fine. CT scan of the chest and of the abdomen/pelvis showed no vascular problems. There is no blood clot. There is no occlusion of the mesenteric arteries. There is no evidence of infection. The near syncope was likely related to vasovagal dilatation from being in the hot shower as well as vagal response to pain. Please follow-up with primary care. Return to ED for fever, new or worsening pain, shortness of breath, bloody stool, persistent vomiting, other concerns or problems. Referrals: Luther Toure [Primary Care Provider] - Discharge Data Discharge Date/Time-TO BE ENTERED AT DEPARTURE: 08/01/19 03:10 Medical Decision Making Patient presents with left lateral chest and abdominal pain. I cannot reproduce it. It is not pleuritic in nature. She does not feel short of breath. She had near syncope after taking a hot shower. She is now complaining of distal tingling in all extremities and I suspect that is related to some hyperventilation. She had rupture of her pancreaticoduodenal artery with coiling. She is also had arcuate ligament release. She has had abdominal symptoms since then but this seems a little different. At this point I am going to consider a broad differential. IV established and laboratory studies ordered. Fluids started. Her EKG does have some ST depression inferior laterally but this appears old and not significantly changed from 2010. CTA of the chest to evaluate for PE ordered. CTA of abdomen pelvis ordered to evaluate mesenteric vessels. Patient received a couple doses of morphine. Laboratory studies back. CBC is normal. Lactic acid a little bit up at 2.5. Magnesium a little low at 1.5. This is replaced. Mild elevation of her AST and ALT but normal bilirubin and alk phos. Troponin is negative after hours of discomfort. Kidney function normal. Potassium just a little low. Lipase normal. Urine negative. CT scans review a normal unremarkable chest. Abdomen pelvis shows no arterial occlusions or problems. There is no inflammatory changes. There is no free air or free fluid. Patient continues to have discomfort mostly left upper abdomen area. GI cocktail given without relief. Levsin given with some relief. Actually provided better relief than the morphine. Suspect the near syncope was related to being in a hot shower and not feeling well all day. May be even a little vagal component. Her vitals have been fine here. Suspect the distal tingling and numbness was related to hyperventilation. Work-up not really providing any clear etiology for the patient's pain. Levsin seemed to work best. We will give her a prescription for same and have her follow-up with primary care next week. Medical Records Medical records reviewed: Yes I reviewed the patient's medical records. Lab Data Lab results reviewed: Yes I reviewed the patient's lab results. ECG Data Attestation: I personally reviewed and interpreted this ECG (s) as follows: Prior ECG tracings: available for review Interpretation: Sinus rhythm at 76. Normal axis and intervals. ST depression noted in the inferior lateral leads. Compared to EKG from 2011 this does not appear to be significantly changed. HPI General Mode of arrival: ambulatory . Date/Time Provider Initiated Documentation: 07/31/19 23:26 . Limitations to Documentation: no limitations . Information obtained by: patient and RN notes reviewed . HPI Narrative: Patient presents to ED for evaluation of left lateral chest and abdominal pain that started earlier in the afternoon. In the morning she had a migraine headache with vomiting which eventually resolved. [place] okay in the early part of the afternoon but then developed this left-sided discomfort that waxed and waned in intensity. Did not seem to be made worse with breathing or movement. She thought it was likely related to her GI issues that she developed status post some abdominal surgeries. She felt like she had a lot of gas. She then took a hot shower and became very lightheaded. Sat down on the toilet and never really completely lost consciousness but definitely had near syncope had to be laid down on the ground. She has developed some tingling in the distal parts of her extremities. The family decided to bring her in for evaluation. She does not feel short of breath. Pain feels a little different than what she is used to in regards to discomfort after the surgeries. She reports fever in the early afternoon but she thinks that related to a cold she seems to be coming down with with congestion, runny nose and sore throat. Related Data Home Medications Medication Instructions Recorded Confirmed levothyroxine [Synthroid] 50 mcg PO DAILY tab-cap NS 06/12/17 07/31/19 hyoscyamine sulfate [Levsin/SL] 0.125 mg SL BID-QID PRN #30 tab 08/01/19 Previous Rx's Medication Instructions Recorded hyoscyamine sulfate [Levsin/SL] 0.125 mg SL BID-QID PRN #30 tab 08/01/19 Allergies Allergy/AdvReac Type Severity Reaction Status Date / Time Sulfa (Sulfonamide Allergy Skin Rash Unverified 07/31/19 23:24 Antibiotics) sulfamethoxazole Allergy Unverified 07/31/19 23:24 [From Bactrim] trimethoprim [From Bactrim] Allergy Unverified 07/31/19 23:24 General Stated Complaint: GenMedical MARIS: 3 Review of Systems Narrative: 05/20 Review of Systems completed and is negative except as stated above in HPI (Systems reviewed: Const, Eyes, ENT, Resp, CV, GI, , MSK, Skin, Neuro) [facility] Medical History (Updated 08/01/19 @ 06:10 by Werner Sargent MD) Hypothyroidism (Chronic) Median arcuate ligament syndrome (Chronic) 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 Normal vital signs and room air pulse oximetry. Const: WDWN female appears uncomfortable. HEENT: NC/AT. Normal facial exam. Eyes: Normal conjunctiva and sclera. Neck: Supple. Trachea midline. Lungs: Normal respiratory effort. Lungs are clear. No chest wall tenderness. Cor: RRR without murmur/gallop. Good distal pulses. GI: Soft. NT/ND. No guarding or rebound on my exam. Neuro: A+O x 3. Normal speech, mentation, gait. No gross motor or focal deficits. Ext: No C/C/E. No calf tenderness. Skin: Warm and dry without rash. Course Vital Signs Vital signs: Vital Signs Temperature 98.2 F 07/31/19 23:21 Pulse 78 07/31/19 23:21 Respiratory Rate 20 07/31/19 23:21 Blood Pressure 147/60 H 07/31/19 23:21 Pulse Oximetry 99 07/31/19 23:21 Temperature 98.2 F 07/31/19 23:21 Pulse 78 07/31/19 23:21 Respiratory Rate 18 07/31/19 23:26 Respiratory Effort Non-Labored 07/31/19 23:26 Respiratory Depth Normal 07/31/19 23:26 Blood Pressure 147/60 H 07/31/19 23:21 Blood Pressure Position Sitting 07/31/19 23:21 Pulse Oximetry 99 07/31/19 23:21 Oxygen Delivery Method Room Air 07/31/19 23:21 Oxygen Flow Rate 0 07/31/19 23:21 Pain Level 3 07/31/19 23:21
[2019-07-31 23:37] VITALS: PULSE 78; RESP 15; O2SAT 99
[2019-07-31 23:40] VITALS: PULSE 74; RESP 12; O2SAT 99
[2019-07-31 23:50] VITALS: PULSE 72; RESP 12; O2SAT 97
[2019-08-01] VITALS (20 sets, daily range): BP systolic 123–133; BP diastolic 54–55; PULSE 65–76; RESP 7–20; TEMP 37.4; O2SAT 98–99
[2019-08-01] LABS: Abs Immature Grans 0.01 k/cumm (0.0-0.09); Absolute Basophil Count 0.01 k/cumm (0.0-0.2); Absolute Eosinophil Count 0.02 k/cumm (0.0-0.7); Absolute Lymphocyte Count 0.93 k/cumm (1.2-3.4); Absolute Neutrophil Count 5.47 k/cumm (1.2-6.7); Basophils % 0.1; Eosinophils % 0.3; HCT 37.4 % (36.0-46.0); HGB 13.3 g/dL (12.0-15.5); Immature Grans % 0.1; Lymphocytes % 13.4; Mean Corp. HGB Concentration 35.6 g/dL (32.0-36.0); Mean Corpuscular Hemoglobin 31.4 pg (27.0-33.0); Mean Corpuscular Volume 88.4 fL (80-95); Mean Platelet Volume 10.1 fL (8.0-11.0); Monocytes % 7.2; Neutrophils % 78.9; Platelet Count 161 x1000/uL (130-400); RBC 4.23 m/cumm (4.00-5.20); RBC Distribution Width 12.1 % (11.7-14.6); White Blood Cell Count 6.94 k/cumm (4.4-10.8)
[2019-08-01] MEDS: Lactated Ringers 1,000 ML 1000 ML IV (00:01)
[2019-08-01] MEDS: Normal Saline Flush 10 ML SYR IVP (00:01)
[2019-08-01 00:13] LABS: Lactate 2.5 mmol/L (0.6-1.4)
[2019-08-01 00:24] LABS: PTT Activated 24.5 sec (21.0-31.4)
[2019-08-01 00:29] LABS: ALT 145 U/L (14-59); AST 128 U/L (15-37); Albumin 3.7 g/dL (3.4-5.0); Alkaline Phosphatase 108 U/L (46-116); BUN 8 mg/dL (7-18); Bilirubin, Total 0.6 mg/dL (0.2-1.0); CREATININE 0.73 mg/dL (0.55-1.02); Calcium 9.1 mg/dL (8.5-10.1); Chloride 105 mmol/L (98-107); Glucose 125 mg/dL (74-106); Lipase 197 U/L (73-393); Magnesium 1.5 mg/dL (1.8-2.4); Potassium 3.3 mmol/L (3.5-5.1); Sodium 142 mmol/L (136-145); Total Protein 6.6 g/dL (6.4-8.2)
[2019-08-01 00:42] LABS: Troponin I < 0.05 ng/Ml (<0.06)
[2019-08-01] MEDS: MORPHine 10 MG/ML VIAL 2 MG IVP ×2 (00:54→03:00)
[2019-08-01] MEDS: Omnipaque 350 MG/ML 100 ML BTL IJ (01:12)
[2019-08-01 01:18] LABS: Bilirubin Negative (Negative); Blood Negative (Negative); Clarity Clear (Clear); Glucose Negative (Negative); Ketones Negative (Negative); Leukocyte Esterase Trace (Negative); Nitrite Negative (Negative); Specific Gravity 1.015 (1.005-1.025); Urobilinogen 0.2 EU/dL (Up TO 0.2); pH 8.5 (5-8)
[2019-08-01 01:21] LABS: C & S Indicated? No; WBC 0-2 HPF (0-5)
--- NOTE | 2019-08-01 01:28 | DI.VRAD_ITS ---
PROCEDURE INFORMATION: Exam: CT Angiography Chest With Contrast Exam date and time: 07/31/2019 1:04 AM Age: 54 years old Clinical indication: Left-sided chest pain; Abdominal pain; Localized; Left upper quadrant (luq); Prior surgery; Surgery date: 1-6 months; Surgery type: Ligament repair for mals 04/2019; Additional info: Left lateral chest pain, left upper abd pain, recent surgery (04/2019) for mals repair. ? Pe vs celiac artery TECHNIQUE: Imaging protocol: Computed tomographic angiography of the chest with intravenous contrast. 3D rendering: MIP and/or 3D reconstructed images were created by the technologist. Radiation optimization: All CT scans at this facility use at least one of these dose optimization techniques: automated exposure control; mA and/or kV adjustment per patient size (includes targeted exams where dose is matched to clinical indication); or iterative reconstruction. Contrast material: [id number]; Contrast volume: 100 ml; Contrast route: IV RT FOREARM 18; COMPARISON: SC XR PORTABLE CHEST AP 10/07/2018 10:11 PM FINDINGS: Pulmonary arteries: Normal. No pulmonary emboli. Aorta: Unremarkable. No aortic aneurysm. No aortic dissection. Lungs: Unremarkable. No consolidation. No masses. Pleural space: Unremarkable. No pneumothorax. No pleural effusion. Heart: Unremarkable. No cardiomegaly. No pericardial effusion. Lymph nodes: Unremarkable. No enlarged lymph nodes. Bones/joints: Unremarkable. No acute fracture. Soft tissues: Unremarkable. IMPRESSION: No acute findings. PROCEDURE INFORMATION: Exam: CT Angiography Abdomen and Pelvis With Contrast Exam date and time: 07/31/2019 1:04 AM Age: 54 years old Clinical indication: Left-sided chest pain; Abdominal pain; Localized; Left upper quadrant (luq); Prior surgery; Surgery date: 1-6 months; Surgery type: Ligament repair for mals 04/2019; Additional info: Left lateral chest pain, left upper abd pain, recent surgery (04/2019) for mals repair. ? Pe vs celiac artery TECHNIQUE: Imaging protocol: Computed tomographic angiography of the abdomen and pelvis with intravenous contrast material. 3D rendering: MIP and/or 3D reconstructed images were created by the technologist. Radiation optimization: All CT scans at this facility use at least one of these dose optimization techniques: automated exposure control; mA and/or kV adjustment per patient size (includes targeted exams where dose is matched to clinical indication); or iterative reconstruction. Contrast material: [id number]; Contrast volume: 100 ml; Contrast route: IV RT FOREARM 18; COMPARISON: SC XR PORTABLE CHEST AP 10/07/2018 10:11 PM FINDINGS: Aorta: No aortic aneurysm. No aortic dissection. Celiac trunk and mesenteric arteries: No occlusion or significant stenosis. Renal arteries: No occlusion or significant stenosis. Right iliac arteries: No occlusion or significant stenosis. Left iliac arteries: No occlusion or significant stenosis. Liver: No mass. Gallbladder and bile ducts: Status post cholecystectomy. Pancreas: Unremarkable. No mass. No ductal dilation. Spleen: Unremarkable. No splenomegaly. Adrenals: Unremarkable. No mass. Kidneys and ureters: Unremarkable. No solid mass. No hydronephrosis. Stomach and bowel: Colonic diverticula. Appendix: No evidence of appendicitis. Intraperitoneal space: Unremarkable. No free air. No significant fluid collection. Lymph nodes: Unremarkable. No enlarged lymph nodes. Bladder: Unremarkable. No mass. Reproductive: Status post hysterectomy. Bones/joints: No acute fracture. No dislocation. Soft tissues: Unremarkable. IMPRESSION: No acute finding. Dictated and Authenticated by: Roberto Gonzalez MD. Ordering:TAMIKA Caldera MD
[2019-08-01] MEDS: MAGNESIUM SULFATE 2 GM/50 ML BAG IVPB (01:30)
[2019-08-01] MEDS: Hyoscyamine 0.125 MG SL/ORAL/CHEW SL (02:24)
== END 2019-08-01 03:10 | disposition home or self-care (01) ==
LOC: ER 08-01 03:14
PROVIDERS: Emergency Provider Emergency Medicine; PCP Family Medicine
DX: R55 Syncope and collapse (principal); R20.2 Paresthesia of skin; R10.12 Left upper quadrant pain; G43.909 Migraine, unspecified, not intractable, without status migrainosus
CPT/HCPCS: 36415; 74177; 80053; 83690; 93005; 96361; 96365; 96375; 96376; 99285; 81003; 81015; 83605; 83735; 84484; 85025; 85610; 85730; 93010; 99284; J2270; J3490

== ENCOUNTER 2020-11-09 07:17 | Emergency (ER) | payer BC, SELFPAY ==
[2020-11-09] VITALS (7 sets, daily range): BP systolic 108–139; BP diastolic 53–73; PULSE 75–103; RESP 13–25; TEMP 36.8–37.3; O2SAT 97–98
--- NOTE | 2020-11-09 07:45 | DI.CT_ITS ---
EXAM: CT BRAIN NECK CTA CLINICAL HISTORY: headache, h/o pancreatic aneurysm. TECHNIQUE: Imaging Protocol: Axial CT angiography was performed with multi-slice acquisition and mu lti-planar and/or 3D reconstructions. CONTRAST MATERIAL: Intravenous: Omnipaque 350 Contrast volume:85 mL COMPARISON: CT CTA ABD/PELVIS W LEB from 08/10/2020 FINDINGS: CT Head W/O and W: Ventricles and Extra axial spaces: Normal in size and morphology for the patient's age. Hemorrhage: There is an acute left subdural hemorrhage involving both anterior middle cranial fossa. Cerebral parenchyma: Normal. Midline shift: None. Brainstem/Cerebellum: Normal. Calvarium: Normal. Visualized Paranasal sinuses/Mastoids: Clear. Soft Tissues: Unremarkable. Enhancement: Unremarkable. CTA Neck W: Common Carotid: Right: No dissection, occlusion or significant stenosis. Left: No dissection, occlusion or significant stenosis. External Carotid: Right: No occlusion or significant stenosis. Left: No occlusion or significant stenosis. Internal Carotid: Right: No dissection, occlusion or significant stenosis. Left: No dissection, occlusion or significant stenosis. Vertebral Artery: Right: No dissection, occlusion or significant stenosis. Left: No dissection, occlusion or significant stenosis. Lung Apices: Normal. Bones: Mild degenerative changes in the cervical spine. Soft Tissues: Normal. CTA Brain W: Internal Carotid Arteries: Petrous: Normal. Cavernous: Normal. Cerebral: Normal. Anterior Cerebral Arteries: Right: No aneurysm, occlusion or significant stenosis. Left: No aneurysm, occlusion or significant stenosis. Middle Cerebral Arteries: Right: No aneurysm, occlusion or significant stenosis. Left: No aneurysm, occlusion or significant stenosis. Posterior cerebral Arteries: Right: No aneurysm, occlusion or significant stenosis. Left: No aneurysm, occlusion or significant stenosis. Vertebral Arteries: Right: No aneurysm, occlusion or significant stenosis. Left: No aneurysm, occlusion or significant stenosis. Basilar Artery: No aneurysm, occlusion or significant stenosis. IMPRESSION: 1. Normal CTA examination of the [place]. 2. Left convexity acute subdural hemorrhage measuring 4 mm in thickness. 3. Normal CTA examination of the neck. 4. Findings were discussed with the emergency department on the date of the examination. RADIATION DOSE DELIVERED: 1,903.1mGy.cm Total DLP DATA REPOSITORY: All CT scans at this facility are submitted to the National Radiology Data Registry (NRDR) Dose Index Registry (DIR) with the [employer] (A[employer]). RADIATION OPTIMIZATION: All CT scans at this facility use at least one of these dose optimization te chniques: automated exposure control; mA and/or kV adjustment per patient size (includes targeted exa ms where dose is matched to clinical indication); or iterative reconstruction.
--- NOTE | 2020-11-09 07:54 | ED.GENADUL_ITS ---
Discharge Plan Discharge Details Chief Complaint: Headache Primary Care Provider: Luther Toure ED Provider: Laura Leblanc Home Meds and New Rx's Prescriptions: No Action levothyroxine [Synthroid] 75 MCG tablet 50 mcg PO DAILY RF: 0 rizatriptan [Maxalt] 10 mg tablet 10 mg PO DAILY RF: 0 hyoscyamine sulfate [Levsin/SL] 0.125 mg tablet, sublingual 0.125 mg SL BID-QID PRN (Reason: intestinal spasm) Qty: 30 RF: 0 Discharge Data Discharge Date/Time-TO BE ENTERED AT DEPARTURE: 11/09/20 10:08 Medical Decision Making Leah Benitez is a 55-year-old woman with a history of Delmar-Danlos syndrome, hypothyroidism, pancreaticoduodenal artery aneurysm, pots who presented to the emergency department with headache since last night with sudden severe worsening last night becoming worse headache of her life, now somewhat improved. On exam patient appears somewhat uncomfortable but is otherwise well and nontoxic-appearing. Cranial nerves are intact, patient is neurologically nonfocal. Concern for subarachnoid versus migraine versus other. Exam history at this time is not consistent with central venous thrombosis, infectious etiology including meningitis, encephalitis. Plan for CT/CTA, screening labs, IV placement, pain control with Benadryl/Compazine, IV fluids. Will monitor and reassess. Notified over the phone by radiology that patient has 4 mm subdural hemorrhage without midline shift, no apparent vascular abnormality. I contacted [facility] at 09:05, awaiting callback. Images pushed. Patient notified of her results. Patient reports that pain is resolved after meds, no new symptoms. Exam unchanged. Patient placed on telemetry, plan for Keppra 1000 mg. Pt reiterates that she has not hit her head, no recent trauma. 09 called back by [facility], discussed patient presentation, results, and treatment ministered with Dr. Walsh of neurosurgery who reviewed pushed images, who accepts patient for ED to ED transfer with Dr. Spaulding of the emergency department also on phone call. No further immediate intervention recommended by neurosurgery at this time. Plan for transfer discussed with patient, she is amenable. Clinical Impression: subdural hemorrhage Disposition: [facility] Medical Records Medical records reviewed: Yes I reviewed the patient's medical records. Imaging Data Radiologic Study: Attestation: I personally reviewed and interpreted this imaging study as follows: Radiologist's impression: EXAM: CT BRAIN NECK CTA CLINICAL HISTORY: headache, h/o pancreatic aneurysm. TECHNIQUE: Imaging Protocol: Axial CT angiography was performed with multi- slice acquisition and multi-planar and/or 3D reconstructions. CONTRAST MATERIAL: Intravenous: Omnipaque 350 Contrast volume:85 mL COMPARISON: CT CTA ABD/PELVIS W LEB from 08/10/2020 FINDINGS: CT Head W/O and W: Ventricles and Extra axial spaces: Normal in size and morphology for the patient 's age. Hemorrhage: There is an acute left subdural hemorrhage involving both anterior middle cranial fossa. Cerebral parenchyma: Normal. Midline shift: None. Brainstem/Cerebellum: Normal. Calvarium: Normal. Visualized Paranasal sinuses/Mastoids: Clear. Soft Tissues: Unremarkable. Enhancement: Unremarkable. CTA Neck W: Common Carotid: Right: No dissection, occlusion or significant stenosis. Left: No dissection, occlusion or significant stenosis. External Carotid: Right: No occlusion or significant stenosis. Left: No occlusion or significant stenosis. Internal Carotid: Right: No dissection, occlusion or significant stenosis. Left: No dissection, occlusion or significant stenosis. Vertebral Artery: Right: No dissection, occlusion or significant stenosis. Left: No dissection, occlusion or significant stenosis. Lung Apices: Normal. Bones: Mild degenerative changes in the cervical spine. Soft Tissues: Normal. CTA Brain W: Internal Carotid Arteries: Petrous: Normal. Cavernous: Normal. Cerebral: Normal. Anterior Cerebral Arteries: Right: No aneurysm, occlusion or significant stenosis. Left: No aneurysm, occlusion or significant stenosis. Middle Cerebral Arteries: Right: No aneurysm, occlusion or significant stenosis. Left: No aneurysm, occlusion or significant stenosis. Posterior cerebral Arteries: Right: No aneurysm, occlusion or significant stenosis. Left: No aneurysm, occlusion or significant stenosis. Vertebral Arteries: Right: No aneurysm, occlusion or significant stenosis. Left: No aneurysm, occlusion or significant stenosis. Basilar Artery: No aneurysm, occlusion or significant stenosis. IMPRESSION: 1. Normal CTA examination of the [place]. 2. Left convexity acute subdural hemorrhage measuring 4 mm in thickness. 3. Normal CTA examination of the neck. 4. Findings were discussed with the emergency department on the date of the examination. Lab Data Lab results reviewed: Yes I reviewed the patient's lab results. Labs: Laboratory Tests Range/Units 11/09/20 11/09/20 11/09/20 08:00 08:00 08:20 WBC (4.4-10.8) 10^3/uL 5.13 RBC (3.93-5.22) 10^6/uL 4.49 Hgb (11.2-15.7) g/dL 14.1 Hct (36.0-46.0) % 40.3 MCV (80-95) fL 89.8 MCH (27.0-33.0) pg 31.4 MCHC (32.0-36.0) % 35.0 RDW (11.7-14.6) % 12.0 Plt Count (130-400) 10^3/uL 182 MPV (8.0-11.0) fL 10.0 Immature Gran % 0.2 Neutrophils % 70.6 Lymphocytes % 21.2 Monocytes % 7.0 Eosinophils % 0.6 Basophils % 0.4 Nucleated RBC % % 0 Absolute Neutrophils (1.2-6.7) 10^3/uL 3.62 Absolute Lymphocytes (1.2-3.4) 10^3/uL 1.09 L Absolute Monocytes (0.1-0.8) 10^3/uL 0.36 Absolute Eosinophils (0.0-0.7) 10^3/uL 0.03 Absolute Basophils (0.0-0.2) 10^3/uL 0.02 PT (9.3-11.0) sec 10.4 INR (0.9-1.1) 1.0 Sodium (136-145) mmol/L 143 Potassium (3.5-5.1) mmol/L 4.3 Chloride (98-107) mmol/L 105 Carbon Dioxide (21.0-32.0) mmol/L 28.3 Anion Gap (3-11) mmol/L 9.7 BUN (7-18) mg/dL 10 Creatinine (0.55-1.02) mg/dL 0.7 Estimated GFR/1.73 m2 (mL/min/1.73m2) >= 60.00 Glucose (74-106) mg/dL 113 H Calcium (8.5-10.1) mg/dL 9.2 Total Bilirubin (0.2-1.0) mg/dL 0.7 AST (15-37) U/L 25 ALT (14-59) U/L 37 Alkaline Phosphatase (46-116) U/L 79 Total Protein (6.4-8.2) g/dL 7.1 Albumin (3.4-5.0) g/dL 4.0 HPI General Mode of arrival: ambulatory . Date/Time Provider Initiated Documentation: 11/09/20 07:36 . Limitations to Documentation: no limitations . Information obtained by: patient, RN notes reviewed and old records reviewed . HPI Narrative: Leah Betancourt is a 55-year-old woman with a history as hypothyroidism, pancreaticoduodenal artery aneurysm, Delmar Danlos syndrome, POTS presenting to the emergency department with headache. Patient reports that last night she began to develop headache that was consistent with her typical m igraines, however approximately 5 to 10 minutes after onset of headache headache suddenly became very severe, worst headache of her life. Patient reports that she vomited several times within 20 minutes of headache worsening. Patient reports that headache persisted at this severity for approximately 3 hours and then began to improve somewhat. Patient reports that headache has persisted through to this morning. She has had no further vomiting. She reports that headache is currently located in the right forehead area and also in the back of her neck which is where she typically has pain with her migraines. Patient reports that pain level currently 7 out of 10 and is currently typical of her usual migraine pain severity. She denies any other pain, fevers, shortness of breath, cough, diarrhea, rash, new numbness or weakness, visual changes. Patient reports she does have right leg numbness which has been ongoing for some time and for which she is scheduled to see a neurologist at [facility] today, this numbness is unchanged. Related Data Home Medications Medication Instructions Recorded Confirmed levothyroxine [Synthroid] 50 mcg PO DAILY tab-cap NS 06/12/17 11/09/20 hyoscyamine sulfate [Levsin/SL] 0.125 mg SL BID-QID PRN #30 tab 08/01/19 11/09/20 rizatriptan 10 mg tablet 10 mg PO DAILY tab 08/26/20 11/09/20 Previous Rx's Medication Instructions Recorded hyoscyamine sulfate [Levsin/SL] 0.125 mg SL BID-QID PRN #30 tab 08/01/19 Allergies Allergy/AdvReac Type Severity Reaction Status Date / Time Sulfa (Sulfonamide Allergy Skin Rash Unverified 11/09/20 08:25 Antibiotics) sulfamethoxazole Allergy Unverified 11/09/20 08:25 [From Bactrim] trimethoprim [From Bactrim] Allergy Unverified 11/09/20 08:25 General Stated Complaint: Headache MARIS: 3 Review of Systems Narrative: Constitutional: denies fevers Eyes: denies eye pain ENT: denies ear pain, dental pain, sore throat Cardiovascular: denies chest pain, edema Respiratory: denies SOB, cough GI: denies abdominal pain, vomiting, diarrhea : denies flank pain MSK: denies back pain, arthralgias, myalgias.reports neck pain Skin: denies rash Neuro: denies new numbness, weakness, reports headache PFSH Medical History Breast mass Cholecystitis Delmar-Danlos syndrome Hypothyroidism Median arcuate ligament syndrome Nephrolithiasis 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 POTS (postural orthostatic tachycardia syndrome) Renal cyst Salivary duct stone Surgical History section Hernia repair History of surgical procedure coiling of aneurysm; laproscopic arcuate ligament release Hx of cholecystectomy S/P hysterectomy Family History Father Liver cancer Colon cancer A-fib Social History Smoking/Tobacco Use Status: Never Smoking risk assessment performed?: Yes Alcohol Intake: never Drug use: Never Substance use type: does not use Do you feel safe at home: Yes Do you feel safe in your relationship?: Yes Exam Narrative Exam Narrative: Constitutional: well and [id number], pleasant, conversing normally HENT: head atraumatic/normocephalic/normal inspection, mucous membranes moist Eyes: conjunctiva normal, sclera normal, pupils 3mm b/l equal round reactive to light and accommodation, extraocular movements intact, no nystagmus Neck: no stridor, normal ROM, trachea midline, bilateral paraspinal mildly t herbert to palpation, no cervical spine tenderness to palpation Chest: normal inspection Resp: normal work of breathing, speaking in full sentences Cardio: normal rate, normal rhythm Skin: warm, dry, normal color, no rash Neuro: alert, not altered, motor 5-5 throughout, cranial nerves II through XII intact, normal tone Ext: no edema Psych: normal mood, normal affect, normal behavior Course Vital Signs Vital signs: Vital Signs Temperature 37.3 C 11/09/20 07:26 Pulse 83 11/09/20 07:26 Blood Pressure 139/53 L 11/09/20 07:26 Pulse Oximetry 98 11/09/20 07:26 Temperature 37.3 C 11/09/20 07:26 Temperature Source Temporal Artery Scan 11/09/20 07:26 Pulse 83 11/09/20 07:26 Respiratory Effort Non-Labored 11/09/20 07:30 Blood Pressure 139/53 L 11/09/20 07:26 Blood Pressure Position Sitting 11/09/20 07:26 Pulse Oximetry 98 11/09/20 07:26 Oxygen Delivery Method Room Air 11/09/20 07:26 Oxygen Flow Rate 0 11/09/20 07:26 Pain Level 7 11/09/20 07:31
[2020-11-09] MEDS: Prochlorperazine 10 MG/2 ML VIAL IVP (08:04)
[2020-11-09] MEDS: diphenhydrAMINE 50 MG/ML VIAL 25 MG IVP (08:04)
[2020-11-09] MEDS: Normal Saline 50 ML 200 ML (08:04)
[2020-11-09] MEDS: Normal Saline Flush 10 ML SYR IVP ×2 (08:04→09:40)
[2020-11-09 08:11] LABS: Abs Immature Grans 0.01 10^3/uL (0.0-0.06); Absolute Basophil Count 0.02 10^3/uL (0.0-0.2); Absolute Eosinophil Count 0.03 10^3/uL (0.0-0.7); Absolute Lymphocyte Count 1.09 10^3/uL (1.2-3.4); Absolute Monocyte Count 0.36 10^3/uL (0.1-0.8); Absolute Neutrophil Count 3.62 10^3/uL (1.2-6.7); Basophils % 0.4; Eosinophils % 0.6; HCT 40.3 % (36.0-46.0); HGB 14.1 g/dL (11.2-15.7); Immature Grans % 0.2; Lymphocytes % 21.2; MCH 31.4 pg (27.0-33.0); MCV 89.8 fL (80-95); Neutrophils % 70.6; Nucleated RBC 0 %; Platelet Count 182 10^3/uL (130-400); RBC 4.49 10^6/uL (3.93-5.22); RDW-SD 39.4 fL; WBC 5.13 10^3/uL (4.4-10.8)
[2020-11-09 08:21] LABS: ALT 37 U/L (14-59); AST 25 U/L (15-37); Alkaline Phosphatase 79 U/L (46-116); Anion Gap 9.7 mmol/L (3-11); BUN 10 mg/dL (7-18); Bilirubin, Total 0.7 mg/dL (0.2-1.0); CO2 28.3 mmol/L (21.0-32.0); CREATININE 0.7 mg/dL (0.55-1.02); Calcium 9.2 mg/dL (8.5-10.1); Chloride 105 mmol/L (98-107); Glucose 113 mg/dL (74-106); Potassium 4.3 mmol/L (3.5-5.1); Sodium 143 mmol/L (136-145); Total Protein 7.1 g/dL (6.4-8.2)
[2020-11-09 08:47] LABS: Prothrombin Time 10.4 sec (9.3-11.0)
[2020-11-09] MEDS: Omnipaque 350 MG/ML 100 ML BTL IV (08:56)
[2020-11-09] MEDS: levETIRAcetam 1,000 MG in Normal Saline 100 ML 400 MG IVPB (09:40)
== END 2020-11-09 10:08 ==
PROVIDERS: Emergency Provider Student in an Organized Health Care Education/Training Program; PCP Family Medicine
DX: I62.01 Nontraumatic acute subdural hemorrhage (principal)
CPT/HCPCS: 70496; 70498; 80053; 96365; 96375; 99285; 85025; 85610; J0780; J1200; J1953; J3490

== ENCOUNTER 2020-11-20 23:59 | Emergency (ER) | payer BC, SELFPAY ==
[2020-11-21] VITALS (24 sets, daily range): BP systolic 112–139; BP diastolic 52–70; PULSE 53–79; RESP 9–18; TEMP 36.4–36.8; O2SAT 94–98
--- NOTE | 2020-11-21 | W.ED.GENAD ---
Discharge Plan Disposition Patient Disposition: HOME Condition: Good Discharge Details Clinical Impression: Chronic subdural hematoma, Headache, Nausea Primary Care Provider: Luther Toure ED Provider: Shaquille Dawson Home Meds and New Rx's Prescriptions: Continued levothyroxine [Synthroid] 75 MCG tablet 50 mcg PO DAILY RF: 0 rizatriptan [Maxalt] 10 mg tablet 10 mg PO DAILY PRNRF: 0 hyoscyamine sulfate [Levsin/SL] 0.125 mg tablet, sublingual 0.125 mg SL BID-QID PRN (Reason: intestinal spasm) Qty: 30 RF: 0 tramadol 50 mg tablet 50 mg PO Q6H PRNRF: 0 oxycodone 5 mg tablet 5 mg PO Q6H RF: 0 Discharge Instructions Instructions: Intracranial Hematoma (ED) Additional Instructions: At this time your subdural hematoma is unchanged. The images have been reviewed by [facility] neurosurgery. They recommend close follow-up on Monday as scheduled. Please continue to drink plenty of fluids. I would recommend 7 to 10 cups of water or electrolyte beverage per day. Take the Tylenol and Zofran as needed. Zofran will help with any nausea you may develop. If you notice any worsening of your symptoms, or any new symptoms such as vomiting, diarrhea, fever, chills, shortness of breath, chest pain, numbness, weakness, or fainting , please return immediately to the emergency department for reevaluation. Please follow up with your primary care provider as soon as possible for reassessment and reevaluation. As always, it was a pleasure participating in your medical care today. Of note your liver function is mildly elevated. This is likely from your regular Tylenol use. If you are able to decrease your dose of Tylenol this may be beneficial. However Tylenol is still certainly indicated to be used as needed. 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 She was transferred to [facility] at that time and subsequently discharged from [facility] on 11/13 . With plan for outpatient follow-up and more definitive surgical management this coming Mondaywith transcatheter occlusion/embolization. Patient has been doing ok and was scheduled for follow-up in 2 days. She presents today for evaluation of headache via EMS. Patient states that ever since she was discharged from [facility] her headache has been gradually worsening. She describes it as frontal and left-sided. She has been taking Tylenol every 6 hours as directed. 6 hours ago she did take her first and only oxycodone as she felt that the headache could become unbearable. Throughout the evening she continued to have worsening of her headache. Then later this evening around 11:00 the patient felt notably nauseous and began dry heaving multiple times. She called EMS after that. Upon arrival patient was neurologically intact and brought to the ER for further evaluation. Patient states that her headache actually feels much better now and rates it as 3 out of 10. She admits to seeing occasional bright spots in her eyes, but states that that is gone currently. She denies any abdominal pain, chest pain, arm neck or shoulder pain. She does admit to some residual weakness and tingling on her right hand side which she states is consistent and unchanged for the last few weeks. She denies any new falls or trauma. She has no other complaints at this time. No other modifying factors. She denies any thunderclap onset of her headache currently and states that is been consistent since she was discharged from [facility]. Physical exam is relatively unremarkable. She demonstrates 5 out of 5 strength in all extremities, right upper extremity is slightly perceptibly weaker and less coordinated compared to the left. Albeit minimal. No significant nystagmus. No other focal neurologic deficits. No meningeal signs. Differential includes worsening of subdural, dehydration causing tension headache. Patient is notably remiss to have additional imaging or to be transferred. I did contact [facility] neurosurgery and discussed the case with Dr. Guo. He does recommend Noncon CT scan at this time and does not feel that a CTA would be of any benefit currently. We will progress with Noncon scan, we will rehydrate the patient and give IV Tylenol. Will monitor closely and reassess. 1:49 AM Patient doing well, and headache still notably mild. Patient feels well and would like to go home. CT scan has been performed and personally reviewed by Dr. Guo of neurosurgery at [facility]. He feels that the subdural is relatively unchanged. He and I both reviewed previous [facility] notes, and it does appear that previous visits her subtle weakness was present then as well. As her neurologic exam has remained unchanged, and the CT scan is relatively unchanged, Dr. Guo feels that symptomatic management is reasonable, and no transfer or other interventions are indicated at this time. Patient was given of her meds through the IV, and tolerated this very well. She feels well and would like to go home. Repeat neurologic exam remains unchanged here. She appears hemodynamically stable with no new focal neurologic deficits. Symptoms at this time are clinically inconsistent with new subarachnoid hemorrhage or other concerning etiology like meningitis. Patient will be discharged for close follow-up with [facility] on Monday for embolization. I have extensively reviewed the treatment plan and discharge instructions with the patient and their family. I have addressed all patient concerns at this time. The patient and family was made aware of what symptoms to monitor for that would warrant a return to the emergency department. Discussed the plan with the patient and family, they demonstrate verbal understanding and agreement with our assessment and plan at this time. The documentation in this chart was dictated using bContext dictation software. Please excuse any dictation errors. 3:08 AM At time of discharge the patient again felt nauseated and had some intermittent chills. We did keep the patient for an additional hour of observation. Recheck the urine this was unremarkable. Lung sounds remain clear. Oral temperature was performed and she is afebrile. Heart rate remained stable with no tachycardia. Shoe showed no signs of infectious meningitis. She was given Zofran, and the patient tolerated this well, and continues to have no more vomiting. Patient was rehydrated with a liter of normal saline. After an extended observation, The patient remained stable. She currently shows no evidence of significant infectious etiology. I spent a notable amount of time discussing the case with the patient, and through shared decision-making, patient feels comfortable with going home. Repeat neuro exam shows no new neurologic deficits. I also contacted the patient and discussed the case with him, most concerning red flags that would merit return. I have extensively reviewed the treatment plan and discharge instructions with the patient and their family. I have addressed all patient concerns at this time. The patient and family was made aware of what symptoms to monitor for that would warrant a return to the emergency department. Discussed the plan with the patient and family, they demonstrate verbal understanding and agreement with our assessment and plan at this time. The documentation in this chart was dictated using bContext dictation software. Please excuse any dictation errors. FINDINGS: Brain: Again noted is a left sided subdural hematoma overlying much of the left parietal lobe. In has a maximal thickness of approximately 4 mm which is slightly increased from the prior study. There is approximately 6 mm of midline shift also slightly increased from the prior study. The basal cisterns are still patent. There is early herniation under the anterior falx. Cerebral ventricles: There is no hydrocephalus. Cerebral ventricles: No hydrocephalus. Basal cisterns are patent. Bones/joints: No significant bony abnormality. No fracture. Paranasal sinuses: The minimal mucosal disease in the left maxillary sinus. Mastoid air cells: Mastoid air cells are clear. Orbital cavity: Unremarkable. Soft tissues: Unremarkable. IMPRESSION: 1. Slight increase in size and mass effect from patient's left-sided subdural hematoma. HPI General Date/Time Provider Initiated Documentation: 11/21/20 00:40. HPI Narrative: 55-year-old female with a past medical history of hypothyroidism, pancreatic duodenal artery aneurysm, Delmar-Danlos syndrome, and a recent left-sided subdural hematoma secondary to a dural atrial-venous fistula that was diagnosed 10 days ago. She was transferred to [facility] at that time and subsequently discharged from [facility] on 11/13 . With plan for outpatient follow-up and more definitive surgical management this coming Mondaywith transcatheter occlusion/embolization. Patient has been doing ok and was scheduled for follow-up in 2 days. She presents today for evaluation of headache via EMS. Patient states that ever since she was discharged from [facility] her headache has been gradually worsening. She describes it as frontal and left-sided. She has been taking Tylenol every 6 hours as directed. 6 hours ago she did take her first and only oxycodone as she felt that the headache could become unbearable. Throughout the evening she continued to have worsening of her headache. Then later this evening around 11:00 the patient felt notably nauseous and began dry heaving multiple times. She called EMS after that. Upon arrival patient was neurologically intact and brought to the ER for further evaluation. Patient states that her headache actually feels much better now and rates it as 3 out of 10. She admits to seeing occasional bright spots in her eyes, but states that that is gone currently. She denies any abdominal pain, chest pain, arm neck or shoulder pain. She does admit to some residual weakness and tingling on her right hand side which she states is consistent and unchanged for the last few weeks. She denies any new falls or trauma. She has no other complaints at this time. No other modifying factors. She denies any thunderclap onset of her headache currently and states that is been consistent since she was discharged from [facility]. Related Data Home Medications Medication Instructions Recorded Confirmed levothyroxine [Synthroid] 50 mcg PO DAILY tab-cap NS 06/12/17 11/21/20 hyoscyamine sulfate [Levsin/SL] 0.125 mg SL BID-QID PRN #30 tab 08/01/19 11/21/20 rizatriptan 10 mg tablet 10 mg PO DAILY PRN tab 08/26/20 11/21/20 oxycodone 5 mg PO Q6H 11/21/20 11/21/20 tramadol 50 mg PO Q6H PRN 11/21/20 11/21/20 Previous Rx's Medication Instructions Recorded hyoscyamine sulfate [Levsin/SL] 0.125 mg SL BID-QID PRN #30 tab 08/01/19 Allergies Allergy/AdvReac Type Severity Reaction Status Date / Time Sulfa (Sulfonamide Allergy Skin Rash Unverified 11/21/20 00:40 Antibiotics) sulfamethoxazole Allergy Unverified 11/21/20 00:40 [From Bactrim] trimethoprim [From Bactrim] Allergy Unverified 11/21/20 00:40 General MARIS: 3 Review of Systems All systems reviewed & are unremarkable except as noted in HPI and below PFSH Medical History Breast mass Cholecystitis Delmar-Danlos syndrome Hypothyroidism Median arcuate ligament syndrome Nephrolithiasis 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 POTS (postural orthostatic tachycardia syndrome) Renal cyst Salivary duct stone Surgical History section Hernia repair History of surgical procedure coiling of aneurysm; laproscopic arcuate ligament release Hx of cholecystectomy S/P hysterectomy Family History Father Liver cancer Colon cancer A-fib Social History Smoking/Tobacco Use Status: Never Smoking risk assessment performed?: Yes Alcohol Intake: never Drug use: Never Substance use type: does not use Do you feel safe at home: Yes Do you feel safe in your relationship?: Yes Exam Narrative Exam Narrative: 1.Const: Well-nourished, Well-developed, appearing stated age 2.Eyes: PERRL, no conjunctival injection, and symmetrical lids. No horizontal or vertical nystagmus. 3.ENT: Atraumatic external nose and ears. Moist MM. Neck: Symmetric, trachea midline, No thyromegaly. Patient demonstrates good movement of cervical neck. There is no nuchal rigidity, no nuchal tenderness. Patient is able to flex the neck without any difficulty or significant pain. Negative Kernig's and Brudzinski sign. 4.CVS: +S1/S2, No murmurs or gallops. Peripheral pulses 2+ and equal in all extremities. Brisk capillary refill in all extremities. 5.RESP: Unlabored respiratory effort. Clear to auscultation bilaterally. No wheezes rales or rhonchi 6.GI: Soft, Nontender/Nondistended, No hepatosplenomegaly. No guarding or rebound. 7.MSK: Normocephalic/Atraumatic, Extremities w/o deformity or ttp No cyanosis or clubbing, Normal movement of all extremities 8.Skin: Warm, Dry. No rashes or lesions. 9.Neuro: transportation specialist II-XII grossly intact. Sensation grossly intact, no focal neurologic deficits. All 6 cardinal planes of vision are fully intact. No evidence of rotatory or vertical nystagmus. The patient demonstrated a normal [id number], good dexterity. There was no evidence of dysdiadochokinesia. Patient was able to ambulate without difficulty. There was no wide-based gait. Romberg testing was normal. Aykb-vp-thvq testing was normal. Sensation was intact bilaterally as well as muscle strength bilaterally for all extremities. Patient was able to verbalize butter cup with no slurring, or miss pronunciation. 10.Psych: (AAO) x3. Appropriate mood and affect
--- NOTE | 2020-11-21 00:30 | RT.EKG_ITS ---
APPROVED REPORT Exam: Resting ECG Patient Location: E HR:60 bpm ECG Measurements Heart Rate 60 AXIS [place] 158 P 68 QRSd 90 QRS 82 QT 415 T 73 QTc 414 Conclusion Sinus rhythm...normal P axis, V-rate 60- 99 I have reviewed and interpreted ECG and agree with software generated interpretation. No stemi
[2020-11-21] MEDS: Normal Saline 1,000 ML 1000 ML IV (00:43)
[2020-11-21 00:51] LABS: Abs Immature Grans 0.03 10^3/uL (0.0-0.06); Absolute Basophil Count 0.02 10^3/uL (0.0-0.2); Absolute Eosinophil Count 0.05 10^3/uL (0.0-0.7); Absolute Lymphocyte Count 1.26 10^3/uL (1.2-3.4); Absolute Monocyte Count 0.42 10^3/uL (0.1-0.8); Absolute Neutrophil Count 4.88 10^3/uL (1.2-6.7); Basophils % 0.3; Eosinophils % 0.8; HCT 38.3 % (36.0-46.0); HGB 13.4 g/dL (11.2-15.7); Immature Grans % 0.5; Lymphocytes % 18.9; MCH 31.4 pg (27.0-33.0); MCV 89.7 fL (80-95); MPV 9.6 fL (8.0-11.0); Monocytes % 6.3; Neutrophils % 73.2; Nucleated RBC 0 %; Platelet Count 207 10^3/uL (130-400); RBC 4.27 10^6/uL (3.93-5.22); RDW-SD 39.4 fL; WBC 6.66 10^3/uL (4.4-10.8)
[2020-11-21 01:04] LABS: PTT Activated 21.4 sec (21.0-27.5); Prothrombin Time 10.4 sec (9.3-11.0)
[2020-11-21] MEDS: Ondansetron 4 MG/2 ML VIAL IVP (01:07)
[2020-11-21] MEDS: ACETAMINOPHEN 1,000 MG/100 ML BTL 400 MG IVPB (01:07)
[2020-11-21 01:11] LABS: ALT 103 U/L (14-59); AST 40 U/L (15-37); Albumin 3.7 g/dL (3.4-5.0); Alkaline Phosphatase 138 U/L (46-116); Anion Gap 9.6 mmol/L (3-11); BUN 12 mg/dL (7-18); Bilirubin, Total 0.6 mg/dL (0.2-1.0); CO2 26.4 mmol/L (21.0-32.0); CREATININE 0.8 mg/dL (0.55-1.02); Calcium 9.7 mg/dL (8.5-10.1); Chloride 106 mmol/L (98-107); Glucose 159 mg/dL (74-106); Lipase 145 U/L (73-393); Potassium 3.5 mmol/L (3.5-5.1); Sodium 142 mmol/L (136-145); Total Protein 6.9 g/dL (6.4-8.2)
--- NOTE | 2020-11-21 01:24 | DI.CT_ITS ---
EXAM: CT HEAD WO CLINICAL HISTORY: know left subdural, concern for enlargement TECHNIQUE: COMPARISON: CT CT BRAIN NECK CTA from 11/09/2020 FINDINGS: Noncontrast cranial CT was performed. Examination is compared with recent CT of November 09 which show ed a small left-sided subdural hematoma measuring up to about 4 millimeters in thickness on that exam ination. On today's examination the subdural measures up to about 6-7 millimeters in thickness. The re is slight midline shift noted. Slightly increased mass effect noted. Mildly heterogeneous attenu ation in the subdural collection suggests aging of prior hemorrhage with probable small additional cy sts subacute hemorrhages. No intraparenchymal hemorrhage identified. No intra ventricular hemorrhage identified. IMPRESSION: Slight interval increase in size of previously described left hemisphere subdural hematoma as descri bed above. RADIATION DOSE DELIVERED: 710.7mGy.cm Total DLP RADIATION OPTIMIZATION: All CT scans at this facility use at least one of these dose optimization te chniques: automated exposure control; mA and/or kV adjustment per patient size (includes targeted exa ms where dose is matched to clinical indication); or iterative reconstruction.
--- NOTE | 2020-11-21 02:01 | DI.VRAD_ITS ---
PROCEDURE INFORMATION: Exam: CT Head Without Contrast Exam date and time: 11/21/2020 1:11 AM Age: 55 years old Clinical indication: Condition or disease; Headache; Patient HX: Known left subdural, concern for enlargement TECHNIQUE: Imaging protocol: Computed tomography of the head without contrast. Total images: 1004 Radiation optimization: All CT scans at this facility use at least one of these dose optimization techniques: automated exposure control; mA and/or kV adjustment per patient size (includes targeted exams where dose is matched to clinical indication); or iterative reconstruction. COMPARISON: CT BRAIN NECK CTA 11/09/2020 8:22 AM FINDINGS: Brain: Again noted is a left sided subdural hematoma overlying much of the left parietal lobe. In has a maximal thickness of approximately 4 mm which is slightly increased from the prior study. There is approximately 6 mm of midline shift also slightly increased from the prior study. The basal cisterns are still patent. There is early herniation under the anterior falx. Cerebral ventricles: There is no hydrocephalus. Cerebral ventricles: No hydrocephalus. Basal cisterns are patent. Bones/joints: No significant bony abnormality. No fracture. Paranasal sinuses: The minimal mucosal disease in the left maxillary sinus. Mastoid air cells: Mastoid air cells are clear. Orbital cavity: Unremarkable. Soft tissues: Unremarkable. IMPRESSION: 1. Slight increase in size and mass effect from patient's left-sided subdural hematoma. 2. THIS REPORT CONTAINS FINDINGS THAT MAY BE CRITICAL TO PATIENT CARE. The findings were verbally communicated via telephone conference with JONO SÁNCHEZ at 2:00 AM EDT on 11/21/2020. The findings were acknowledged and understood. Dictated and Authenticated by: Shayne Rodriguez MD. Ordering:ANA Corbin MD
[2020-11-21] MEDS: Ondansetron 4 MG/2 ML VIAL (02:16)
--- NOTE | 2020-11-21 02:53 | NUR.NOTE ---
Nursing Note:Patient reports feeling nauseas around arrival. Cool wash cloth given to pt along with antiemetics. At approx. 0250 pt reports nausea is better. Provider saw pt again at this time. Pt complains of feeling hot and cold. Pt remains afebrile, VSS.
[2020-11-21 02:54] LABS: Bilirubin Negative (Negative); Blood Negative (Negative); Clarity Sl Cloudy (Clear); Glucose Negative (Negative); Ketones 15 mg/dL (Negative); Leukocyte Esterase Negative (Negative); Nitrite Negative (Negative); Urobilinogen 0.2 EU/dL (Up TO 0.2)
[2020-11-21] MEDS: Ondansetron O.D.T. 4 MG TABEF, 3 TABS/BTL PO (03:05)
--- NOTE | 2020-11-21 14:31 | ED.FU.B_ITS ---
Patient called the ED stating that she was given 3 tabs of Zofran to go for home and was told a prescription for Zofran was going to be called into her pharmacy by Dr. Dawson per her ED visit earlier this morning. She states the prescription for zofran was not called into the pharmacy. Patient states she is scheduled for a procedure at [facility] for Monday and needs additional Zofran over the weekend. She states she has not been profusely vomiting but was advised that with her history of dural AV fistula she should minimize vomiting as much as possible. A prescription for Zofran ODT #6 tabs was sent electronically to her pharmacy in [facility].
== END 2020-11-21 03:15 | disposition home or self-care (01) ==
PROVIDERS: Emergency Provider Student in an Organized Health Care Education/Training Program; PCP Family Medicine
DX: I62.03 Nontraumatic chronic subdural hemorrhage (principal); R51.9 Headache, unspecified; R11.0 Nausea
CPT/HCPCS: 80053; 83690; 93005; 96361; 96365; 96375; 96376; 99284; 70450; 81003; 85025; 85610; 85730; 93010; 99283; J0131; J2405

== ENCOUNTER 2020-12-20 11:31 | Emergency (ER) | payer BC, SELFPAY ==
[2020-12-20] VITALS (18 sets, daily range): BP systolic 121–153; BP diastolic 58–98; PULSE 66–96; RESP 10–20; TEMP 36.6–37.3; O2SAT 96–99
--- NOTE | 2020-12-20 11:45 | DI.CT_ITS ---
Exam(s) CT HEAD WO EXAM: CT HEAD WO CLINICAL HISTORY: frontal headache. SDH 11/09/20. TECHNIQUE: Imaging Protocol: Axial computed tomography images with coronal and sagittal reformatted images were created and reviewed COMPARISON: CT CT HEAD WO from 11/21/2020 FINDINGS: There are no skull fractures nor fluid in the visualized paranasal sinuses. The previously present left-sided subdural hematoma is no longer seen. There is presently no evidence of intracranial hemorrhage, mass effect, or shift of midline structure s. There are no extra-axial fluid collections. The ventricles are not enlarged or shifted and there is no blood within the ventricular system nor within the basal cisterns. IMPRESSION: No acute intracranial findings on this noninfused CT scan of the brain. Previously described left subdural hematoma is no longer seen. RADIATION DOSE DELIVERED: 717.84mGy.cm Total DLP DATA REPOSITORY: All CT scans at this facility are submitted to the National Radiology Data Registry (NRDR) Dose Index Registry (DIR) with the [employer] ([employer]). RADIATION OPTIMIZATION: All CT scans at this facility use at least one of these dose optimization te chniques: automated exposure control; mA and/or kV adjustment per patient size (includes targeted exa ms where dose is matched to clinical indication); or iterative reconstruction.
--- NOTE | 2020-12-20 12:02 | ED.GENADUL_ITS ---
Discharge Plan Disposition Patient Disposition: HOME Condition: Improving Discharge Details Clinical Impression: Headache Primary Care Provider: Luther Toure ED Provider: Shayne Winchester Home Meds and New Rx's Prescriptions: Continued levothyroxine [Synthroid] 75 MCG tablet 50 mcg PO DAILY RF: 0 rizatriptan [Maxalt] 10 mg tablet 10 mg PO DAILY PRNRF: 0 hyoscyamine sulfate [Levsin/SL] 0.125 mg tablet, sublingual 0.125 mg SL BID-QID PRN (Reason: intestinal spasm) Qty: 30 RF: 0 acetaminophen [Tylenol Extra Strength] 500 mg Tablet 1,000 mg PO PRN PRNRF: 0 tramadol 50 mg tablet 50 mg PO Q6H PRNRF: 0 oxycodone 5 mg tablet 5 mg PO Q6H RF: 0 ondansetron 4 mg tablet,disintegrating 4 mg PO TID PRN (Reason: nausea and vomiting) Qty: 6 RF: 0 Discharge Instructions Additional Instructions: Home to rest. Small, frequent sips of fluids so that you maintain hydration. No vigorous activity. Your CAT scan today showed resolution of the previously noted left sided subdural hematoma. Return to the ER for any acute concerns. Medical Decision Making 65-year-old female with a history of connective tissue disorder, previous subdural hematoma, presents with headache at home this morning which she says is not unusual, general fatigue and feeling lightheaded. She says she did overdo it yesterday working at there [employer]. She did not fall or hurt herself. She arrives stable, with an unremarkable neurologic examination. Screening laboratories obtained patient referred for noncontrast CT scan of the head. Patient CT notes the previously seen small left subdural hematoma is not evident. No acute hemorrhage seen. Laboratories note unremarkable CBC, INR 1.0, reassuring chemistries. Following fluids and acetaminophen, patient is improving. Lab Data Lab results reviewed: Yes I reviewed the patient's lab results. Labs: Laboratory Results - last 24 hr 12/20/20 12/20/20 12/20/20 12:03 12:03 12:03 WBC 4.66 RBC 4.28 Hgb 13.7 Hct 39.7 MCV 92.8 MCH 32.0 MCHC 34.5 RDW 12.3 Plt Count 172 MPV 9.7 Immature Gran % 0.4 Neutrophils % 71.1 Lymphocytes % 22.3 Monocytes % 5.4 Eosinophils % 0.4 Basophils % 0.4 Nucleated RBC % 0 Absolute Neutrophils 3.31 Absolute Lymphocytes 1.04 L Absolute Monocytes 0.25 Absolute Eosinophils 0.02 Absolute Basophils 0.02 PT 10.5 INR 1.0 APTT 23.0 Sodium 141 Potassium 3.9 Chloride 105 Carbon Dioxide 30.4 Anion Gap 5.6 BUN 12 Creatinine 0.7 Estimated GFR/1.73 m2 >= 60.00 Glucose 109 H Calcium 9.2 HPI General Mode of arrival: ambulatory . Date/Time Provider Initiated Documentation: 12/20/20 11:32 . Limitations to Documentation: no limitations . Information obtained by: patient . History of Present Illness 55 year old F presents to the emergency department with the chief complaint of Frontal headache, history of subdural hematoma in November, described as moderate and similar to prior episodes, Quality is described as dull and constant, and is localized to the head. Patient reports no radiation. Patient started experiencing this day(s) and it has been constant. No relieving factors improve symptom(s), No exacerbating factors reported . Patient notes denies chest pain, fever/chills, loss of appetite, nausea/vomiting, shortness of breath and syncope. Patient did receive the following treatments prior to arrival, none Related Data Home Medications Medication Instructions Recorded Confirmed levothyroxine [Synthroid] 50 mcg PO DAILY tab-cap NS 06/12/17 12/20/20 hyoscyamine sulfate [Levsin/SL] 0.125 mg SL BID-QID PRN #30 tab 08/01/19 11/21/20 rizatriptan 10 mg tablet 10 mg PO DAILY PRN tab 08/26/20 12/20/20 ondansetron 4 mg PO TID PRN #6 tab 11/21/20 oxycodone 5 mg PO Q6H 11/21/20 11/21/20 tramadol 50 mg PO Q6H PRN 11/21/20 12/20/20 acetaminophen [Tylenol Extra 1,000 mg PO PRN PRN 12/20/20 12/20/20 Strength] Previous Rx's Medication Instructions Recorded hyoscyamine sulfate [Levsin/SL] 0.125 mg SL BID-QID PRN #30 tab 08/01/19 ondansetron 4 mg PO TID PRN #6 tab 11/21/20 Allergies Allergy/AdvReac Type Severity Reaction Status Date / Time Sulfa (Sulfonamide Allergy Skin Rash Unverified 12/20/20 11:41 Antibiotics) sulfamethoxazole Allergy Unverified 12/20/20 11:41 [From Bactrim] trimethoprim [From Bactrim] Allergy Unverified 12/20/20 11:41 General Stated Complaint: Headache MARIS: 2 Review of Systems Narrative: 6 systems reviewed and otherwise negative PFSH Medical History Breast mass Cholecystitis Delmar-Danlos syndrome Hypothyroidism Median arcuate ligament syndrome Nephrolithiasis 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 Pleasant, well groomed, interactive. HEAD: Normocephalic, atraumatic ENT: Mucous membranes moist, oropharynx unremarkable, External ear exam unremarkable EYES: PERRL, EOMI NECK: Full ROM, no CHERY, no menigismus CHEST/RESP: Nontender, clear to auscultation bilateral, no wheeze/rhonchi/rales CARDIOVASCULAR: RRR, no murmur, rub tommie. 2+ Rad pulse bilateral ABDOMEN: Soft, nontender, no mass. +Bowel sounds EXT: Full ROM, no edema, no rash Neuro: Grossly normal neurologic exam, conversant, interactive. Psych: Speech fluent, thoughts congruent, affect normal Course Vital Signs Vital signs: Vital Signs Temperature 36.6 C 12/20/20 11:35 Pulse 96 H 12/20/20 11:35 Respiratory Rate 16 05/16/21 11:35 Blood Pressure 147/81 H 12/20/20 11:35 Pulse Oximetry 97 12/20/20 11:35 Temperature 36.6 C 12/20/20 11:35 Temperature Source Skin 12/20/20 11:35 Pulse 75 12/20/20 11:52 Pulse 86 12/20/20 11:52 Respiratory Rate 19 12/20/20 11:52 Respiratory Effort 12/20/20 11:42 Blood Pressure 121/98 H 12/20/20 11:52 Blood Pressure Mean 103 12/20/20 11:52 Pulse Oximetry 98 12/20/20 11:52 Oxygen Delivery Method Room Air 12/20/20 11:35 Oxygen Flow Rate 0 12/20/20 11:35 Pain Level 4 12/20/20 11:35
[2020-12-20 12:16] LABS: Abs Immature Grans 0.02 10^3/uL (0.0-0.06); Absolute Basophil Count 0.02 10^3/uL (0.0-0.2); Absolute Eosinophil Count 0.02 10^3/uL (0.0-0.7); Absolute Lymphocyte Count 1.04 10^3/uL (1.2-3.4); Absolute Monocyte Count 0.25 10^3/uL (0.1-0.8); Absolute Neutrophil Count 3.31 10^3/uL (1.2-6.7); Basophils % 0.4; Eosinophils % 0.4; HCT 39.7 % (36.0-46.0); HGB 13.7 g/dL (11.2-15.7); Immature Grans % 0.4; Lymphocytes % 22.3; MCHC 34.5 % (32.0-36.0); MCV 92.8 fL (80-95); MPV 9.7 fL (8.0-11.0); Monocytes % 5.4; Neutrophils % 71.1; Nucleated RBC 0 %; Platelet Count 172 10^3/uL (130-400); RBC 4.28 10^6/uL (3.93-5.22); RDW 12.3 % (11.7-14.6); RDW-SD 42.3 fL; WBC 4.66 10^3/uL (4.4-10.8)
[2020-12-20] MEDS: Normal Saline 1,000 ML 1000 ML IV (12:20)
[2020-12-20 12:22] LABS: Anion Gap 5.6 mmol/L (3-11); BUN 12 mg/dL (7-18); CO2 30.4 mmol/L (21.0-32.0); CREATININE 0.7 mg/dL (0.55-1.02); Calcium 9.2 mg/dL (8.5-10.1); Chloride 105 mmol/L (98-107); Glucose 109 mg/dL (74-106); Potassium 3.9 mmol/L (3.5-5.1); Sodium 141 mmol/L (136-145)
[2020-12-20 12:27] LABS: Prothrombin Time 10.5 sec (9.3-11.0)
--- NOTE | 2020-12-20 12:40 | DI.VRAD_ITS ---
PROCEDURE INFORMATION: Exam: CT Head Without Contrast Exam date and time: 12/20/2020 12:01 PM Age: 55 years old Clinical indication: Pain; Headache; Other: Frontal; Patient HX: Sdh 11/09/20 TECHNIQUE: Imaging protocol: Computed tomography of the head without contrast. Radiation optimization: All CT scans at this facility use at least one of these dose optimization techniques: automated exposure control; mA and/or kV adjustment per patient size (includes targeted exams where dose is matched to clinical indication); or iterative reconstruction. COMPARISON: CT HEAD WO 11/21/2020 1:15 AM FINDINGS: Brain: Previously seen small left subdural hematoma not evident on current examination. No new acute hemorrhage. Cerebral ventricles: No ventriculomegaly. Bones/joints: Unremarkable. No acute fracture. Paranasal sinuses: Visualized sinuses are unremarkable. No fluid levels. Mastoid air cells: Visualized mastoid air cells are well aerated. Soft tissues: Unremarkable. IMPRESSION: Previously seen small left subdural hematoma not evident on current examination. No new acute hemorrhage. Dictated and Authenticated by: Jerica Decker MD. Ordering:PEDRITO Bella MD
[2020-12-20 13:06] LABS: Bilirubin Negative (Negative); Blood Negative (Negative); Clarity Clear (Clear); Glucose Negative (Negative); Ketones Negative (Negative); Leukocyte Esterase Negative (Negative); Nitrite Negative (Negative); Specific Gravity 1.015 (1.005-1.025); Urobilinogen 0.2 EU/dL (Up TO 0.2)
== END 2020-12-20 13:30 | disposition home or self-care (01) ==
PROVIDERS: Emergency Provider Emergency Medicine; PCP Family Medicine
DX: R51.9 Headache, unspecified (principal)
CPT/HCPCS: 80048; 96360; 99284; 70450; 81003; 85025; 85610; 85730; 99283

== ENCOUNTER 2021-01-15 11:32 | Emergency (ER) | payer BC, SELFPAY ==
[2021-01-15 11:36] VITALS: BP 136/77; PULSE 86; RESP 14; TEMP 36.9; O2SAT 98
--- NOTE | 2021-01-15 12:00 | DI.CT_ITS ---
Exam(s) CT BRAIN CTA EXAM: CT BRAIN CTA CLINICAL HISTORY: hx of subdural, question av fistula. TECHNIQUE: Imaging Protocol: Axial CT angiography was performed with multi-slice acquisition and mu lti-planar and/or 3D reconstructions. CONTRAST MATERIAL: Intravenous: Omnipaque 350 Contrast volume:structured data in ml COMPARISON: CT CT HEAD WO from 11/21/[address] HEAD WO from 11/21/[address] HEAD WO from 12/20/2020 FINDINGS: CT Head W/O, W: Ventricles and Extra axial spaces: Normal in size and morphology for the patient's age. Hemorrhage: None. no new or residual old subdural hematoma. Cerebral parenchyma: Normal. NO PARENCHYMAL HEMORRHAGE. Midline shift: None. Brainstem/Cerebellum: Normal. Calvarium: Normal. Visualized Paranasal sinuses/Mastoids: Clear. Soft Tissues: Unremarkable. CTA Brain W: the timing of the contrast injection was suboptimal. the vessels are well seen on the 5 minutes jorge yed images. no aneurysm is identified. the [id number] vasculature and branch vessels are well opacified. there is no evidence of occlusion or stenosis. no aneurysm is identified. the venous s inuses are normally opacified. no av malformation is seen. IMPRESSION: 1. Normal CTA examination of the [place]. 2. Unremarkable t CT Head. RADIATION DOSE DELIVERED: 1,930.05mGy.cm Total DLP 1,930.05mGy.cm Total DLP 1,930.05mGy.cm Total DLP 1,930.05mGy.cm Total DLP DATA REPOSITORY: All CT scans at this facility are submitted to the National Radiology Data Registry (NRDR) Dose Index Registry (DIR) with the [employer] ([employer]). RADIATION OPTIMIZATION: All CT scans at this facility use at least one of these dose optimization te chniques: automated exposure control; mA and/or kV adjustment per patient size (includes targeted exa ms where dose is matched to clinical indication); or iterative reconstruction.
[2021-01-15 12:26] LABS: ESR 2 mm/hr (0-30)
[2021-01-15 12:30] LABS: Abs Immature Grans 0.01 10^3/uL (0.0-0.06); Absolute Basophil Count 0.03 10^3/uL (0.0-0.2); Absolute Eosinophil Count 0.02 10^3/uL (0.0-0.7); Absolute Lymphocyte Count 1.33 10^3/uL (1.2-3.4); Absolute Monocyte Count 0.26 10^3/uL (0.1-0.8); Basophils % 0.6; Eosinophils % 0.4; HCT 42.5 % (36.0-46.0); HGB 14.9 g/dL (11.2-15.7); Immature Grans % 0.2; Lymphocytes % 25.8; MCH 31.8 pg (27.0-33.0); MCHC 35.1 % (32.0-36.0); MCV 90.6 fL (80-95); MPV 10.2 fL (8.0-11.0); Nucleated RBC 0 %; Platelet Count 184 10^3/uL (130-400); RBC 4.69 10^6/uL (3.93-5.22); RDW 11.7 % (11.7-14.6); RDW-SD 38.6 fL; WBC 5.15 10^3/uL (4.4-10.8)
[2021-01-15 12:32] LABS: ALT 68 U/L (14-59); AST 27 U/L (15-37); Albumin 4.2 g/dL (3.4-5.0); Alkaline Phosphatase 107 U/L (46-116); Anion Gap 8.7 mmol/L (3-11); BUN 11 mg/dL (7-18); Bilirubin, Total 0.4 mg/dL (0.2-1.0); CO2 28.3 mmol/L (21.0-32.0); CREATININE 0.6 mg/dL (0.55-1.02); Calcium 9.2 mg/dL (8.5-10.1); Chloride 105 mmol/L (98-107); Glucose 103 mg/dL (74-106); Potassium 3.9 mmol/L (3.5-5.1); Sodium 142 mmol/L (136-145); Total Protein 7.5 g/dL (6.4-8.2)
[2021-01-15 12:33] LABS: PTT Activated 23.2 sec (21.0-27.5); Prothrombin Time 10.1 sec (9.3-11.0)
--- NOTE | 2021-01-15 12:41 | ED.GENADUL_ITS ---
Discharge Plan Disposition Patient Disposition: HOME Condition: Good Discharge Details Clinical Impression: Headache, Visual changes Primary Care Provider: Luther Toure ED Provider: Alee Estevez Home Meds and New Rx's Prescriptions: New prochlorperazine maleate [Compazine] 10 mg tablet 10 mg PO Q6H PRNQty: 10 RF: 0 No Action levothyroxine [Synthroid] 75 MCG tablet 50 mcg PO DAILY RF: 0 rizatriptan [Maxalt] 10 mg tablet 10 mg PO DAILY PRNRF: 0 hyoscyamine sulfate [Levsin/SL] 0.125 mg tablet, sublingual 0.125 mg SL BID-QID PRN (Reason: intestinal spasm) Qty: 30 RF: 0 acetaminophen [Tylenol Extra Strength] 500 mg Tablet 1,000 mg PO PRN PRNRF: 0 tramadol 50 mg tablet 50 mg PO Q6H PRNRF: 0 oxycodone 5 mg tablet 5 mg PO Q6H RF: 0 ondansetron 4 mg tablet,disintegrating 4 mg PO TID PRN (Reason: nausea and vomiting) Qty: 6 RF: 0 Discharge Instructions Instructions: General Headache (ED) Additional Instructions: Please follow-up with lead clinical research coordinator, no directly there upon discharge -New prescription for Compazine from you try to figure out the headache and nausea Please follow-up with Dr. Pollard, neurology Please return earlier should you have new or worsening complaints I think establishing care at [facility] to follow-up on your ear exam is also would be beneficial Tylenol as needed for discomfort Referrals: Earline Pollard MD [ [facility] STAFF PHYSICIAN] - Discharge Data Discharge Date/Time-TO BE ENTERED AT DEPARTURE: 01/15/21 16:10 Medical Decision Making Low suspicion for retinal detachment or vitreous hemorrhage, intraocular pressure 12 to left eye CTA does not show acute pathology, case discussed with interpreting radiologist Patient feels symptomatically improved without any intervention Given the visual abnormality, I spoke with neurology, lead clinical research coordinator at [facility] and patient will be evaluated after being discharged from the hospital this evening. Patient feeling symptomatically improved, she was supplied with a neurology referral Given prescription for Compazine at home should she need it She is discharged home in stable condition with stable vitals Given the threshold to return with new or worsening complaints Encouraged to follow-up with her primary care physician in 1 to 2 days for reevaluation Differential Diagnosis Differential Diagnosis: temporary arteritis, subdural hematoma, migraine headache, vitreous hemorrh Medical Records Medical records reviewed: Yes I reviewed the patient's medical records. Lab Data Lab results reviewed: Yes I reviewed the patient's lab results. ECG Data Prior ECG tracings: available for review HPI General Mode of arrival: ambulatory . Date/Time Provider Initiated Documentation: 01/15/21 11:46 . Limitations to Documentation: no limitations . Information obtained by: patient . HPI Narrative: This very pleasant 55-year-old female with history of Delmar-Danlos, subdural hematoma, hypothyroidism presents with report of onset of headache last evening which was presenting like a typical headache for patient, this morning when she awoke she noted some visual changes to her left eye that has been persistent. She describes a black large black dot with wavy lines that moves in direct line of vision. She denies any loss of vision or pain to her left eye. She denies any fever or chills. She denies any chest pain or shortness of breath. She denies any dizziness or weakness. She denies any numbness or tingling. She denies any focal weakness or new medications. Of note, she does have a subdural hematoma which was thought to be secondary to an AV fistula, this was managed at [facility] and patient stable on reevaluation no AV fistula was noted and so no repair was performed for possible aneurysm. She states that she does have baseline headaches and was removed from her triptan medication 2 months ago. She is been doing well since that time. She denies any risk of carbon monoxide exposure. She denies worse headache of life or acute onset of headache. She did have a visual exam performed several weeks ago that was reportedly within normal limits per patient. She denies any stiff neck. She denies any speech change Related Data Home Medications Medication Instructions Recorded Confirmed levothyroxine [Synthroid] 50 mcg PO DAILY tab-cap NS 06/12/17 12/20/20 hyoscyamine sulfate [Levsin/SL] 0.125 mg SL BID-QID PRN #30 tab 08/01/19 11/21/20 rizatriptan 10 mg tablet 10 mg PO DAILY PRN tab 08/26/20 12/20/20 ondansetron 4 mg PO TID PRN #6 tab 11/21/20 oxycodone 5 mg PO Q6H 11/21/20 11/21/20 tramadol 50 mg PO Q6H PRN 11/21/20 12/20/20 acetaminophen [Tylenol Extra 1,000 mg PO PRN PRN 12/20/20 12/20/20 Strength] prochlorperazine maleate 10 mg PO Q6H PRN #10 tab 01/15/21 [Compazine] Previous Rx's Medication Instructions Recorded hyoscyamine sulfate [Levsin/SL] 0.125 mg SL BID-QID PRN #30 tab 08/01/19 ondansetron 4 mg PO TID PRN #6 tab 11/21/20 prochlorperazine maleate 10 mg PO Q6H PRN #10 tab 01/15/21 [Compazine] Allergies Allergy/AdvReac Type Severity Reaction Status Date / Time Sulfa (Sulfonamide Allergy Skin Rash Unverified 12/20/20 11:41 Antibiotics) sulfamethoxazole Allergy Unverified 12/20/20 11:41 [From Bactrim] trimethoprim [From Bactrim] Allergy Unverified 12/20/20 11:41 General Stated Complaint: Headache MARIS: 3 Review of Systems Narrative: Review of systems obtained x7 aside from where indicated [facility] Medical History Breast mass Cholecystitis Delmar-Danlos syndrome Hypothyroidism Median arcuate ligament syndrome Nephrolithiasis 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 POTS (postural orthostatic tachycardia syndrome) Renal cyst Salivary duct stone Surgical History section Hernia repair History of surgical procedure coiling of aneurysm; laproscopic arcuate ligament release Hx of cholecystectomy S/P hysterectomy Family History Father Liver cancer Colon cancer A-fib Social History Smoking/Tobacco Use Status: Never Smoking risk assessment performed?: Yes Alcohol Intake: never Drug use: Never Substance use type: does not use Do you feel safe at home: Yes Do you feel safe in your relationship?: Yes Exam Const General: cooperative and no acute distress [facility] Other: no pain over temporal artery Eyes Pupils: PERRL EOM: EOM intact bilaterally Neck Other: neg carotid bruit Resp Effort & Inspection: normal respiratory effort Auscultation: clear to auscultation bilaterally Cardio Rate: regular rate Rhythm: regular rhythm Skin General skin exam: no rashes or lesions noted Neuro General: patient alert and patient oriented x3 Cranial Nerves: CN's II-XI intact bilaterally and tongue midline Speech: speech normal Gait: normal gait Other: Negative [id number], negative pronator drift, negative heel daniel Course Vital Signs Vital signs: Vital Signs Temperature 36.9 C 01/15/21 11:36 Pulse 86 01/15/21 11:36 Respiratory Rate 14 01/15/21 11:36 Blood Pressure 136/77 01/15/21 11:36 Pulse Oximetry 98 01/15/21 11:36 Temperature 36.9 C 01/15/21 11:36 Temperature Source Skin 01/15/21 11:36 Pulse 86 01/15/21 11:36 Respiratory Rate 14 01/15/21 11:36 Respiratory Effort Non-Labored 01/15/21 12:10 Blood Pressure 136/77 01/15/21 11:36 Blood Pressure Position Sitting 01/15/21 11:36 Pulse Oximetry 98 01/15/21 11:36 Oxygen Delivery Method Room Air 01/15/21 11:36 Oxygen Flow Rate 0 01/15/21 11:36 Pain Level 2 01/15/21 12:17 Lab/Test Results Lab/Test Results: Laboratory Tests Range/Units 01/15/21 01/15/21 01/15/21 12:05 12:05 12:05 WBC (4.4-10.8) 10^3/uL RBC (3.93-5.22) 10^6/uL Hgb (11.2-15.7) g/dL Hct (36.0-46.0) % MCV (80-95) fL MCH (27.0-33.0) pg MCHC (32.0-36.0) % RDW (11.7-14.6) % Plt Count (130-400) 10^3/uL MPV (8.0-11.0) fL Immature Gran % Neutrophils % Lymphocytes % Monocytes % Eosinophils % Basophils % Nucleated RBC % % Absolute Neutrophils (1.2-6.7) 10^3/uL Absolute Lymphocytes (1.2-3.4) 10^3/uL Absolute Monocytes (0.1-0.8) 10^3/uL Absolute Eosinophils (0.0-0.7) 10^3/uL Absolute Basophils (0.0-0.2) 10^3/uL ESR (0-30) mm/hr 2 PT (9.3-11.0) sec 10.1 INR (0.9-1.1) 1.0 APTT (21.0-27.5) sec 23.2 Sodium (136-145) mmol/L 142 Potassium (3.5-5.1) mmol/L 3.9 Chloride (98-107) mmol/L 105 Carbon Dioxide (21.0-32.0) mmol/L 28.3 Anion Gap (3-11) mmol/L 8.7 BUN (7-18) mg/dL 11 Creatinine (0.55-1.02) mg/dL 0.6 Estimated GFR/1.73 m2 (mL/min/1.73m2) >= 60.00 Glucose (74-106) mg/dL 103 Calcium (8.5-10.1) mg/dL 9.2 Total Bilirubin (0.2-1.0) mg/dL 0.4 AST (15-37) U/L 27 ALT (14-59) U/L 68 H Alkaline Phosphatase (46-116) U/L 107 Total Protein (6.4-8.2) g/dL 7.5 Albumin (3.4-5.0) g/dL 4.2 Range/Units 01/15/21 12:05 WBC (4.4-10.8) 10^3/uL 5.15 RBC (3.93-5.22) 10^6/uL 4.69 Hgb (11.2-15.7) g/dL 14.9 Hct (36.0-46.0) % 42.5 MCV (80-95) fL 90.6 MCH (27.0-33.0) pg 31.8 MCHC (32.0-36.0) % 35.1 RDW (11.7-14.6) % 11.7 Plt Count (130-400) 10^3/uL 184 MPV (8.0-11.0) fL 10.2 Immature Gran % 0.2 Neutrophils % 68.0 Lymphocytes % 25.8 Monocytes % 5.0 Eosinophils % 0.4 Basophils % 0.6 Nucleated RBC % % 0 Absolute Neutrophils (1.2-6.7) 10^3/uL 3.50 Absolute Lymphocytes (1.2-3.4) 10^3/uL 1.33 Absolute Monocytes (0.1-0.8) 10^3/uL 0.26 Absolute Eosinophils (0.0-0.7) 10^3/uL 0.02 Absolute Basophils (0.0-0.2) 10^3/uL 0.03 ESR (0-30) mm/hr PT (9.3-11.0) sec INR (0.9-1.1) APTT (21.0-27.5) sec Sodium (136-145) mmol/L Potassium (3.5-5.1) mmol/L Chloride (98-107) mmol/L Carbon Dioxide (21.0-32.0) mmol/L Anion Gap (3-11) mmol/L BUN (7-18) mg/dL Creatinine (0.55-1.02) mg/dL Estimated GFR/1.73 m2 (mL/min/1.73m2) Glucose (74-106) mg/dL Calcium (8.5-10.1) mg/dL Total Bilirubin (0.2-1.0) mg/dL AST (15-37) U/L ALT (14-59) U/L Alkaline Phosphatase (46-116) U/L Total Protein (6.4-8.2) g/dL Albumin (3.4-5.0) g/dL
[2021-01-15] MEDS: Prochlorperazine 10 MG/2 ML VIAL IVP (13:02)
[2021-01-15] MEDS: Normal Saline 1,000 ML 1000 ML IV (13:02)
[2021-01-15 13:22] VITALS: BP 130/66; PULSE 70; RESP 15; TEMP 36.8; O2SAT 99
[2021-01-15] MEDS: Omnipaque 350 MG/ML 100 ML BTL IJ (13:59)
[2021-01-15] MEDS: Normal Saline - Diluent 50 ML VIAL IV (13:59)
[2021-01-15 15:50] VITALS: BP 144/89; PULSE 67; TEMP 37.6; O2SAT 96
== END 2021-01-15 16:10 | disposition home or self-care (01) ==
PROVIDERS: Emergency Provider Physician Assistant; PCP Family Medicine
DX: H53.8 Other visual disturbances (principal); H51.9 Unspecified disorder of binocular movement
CPT/HCPCS: 70496; 80053; 85652; 96361; 96374; 99285; 85025; 85610; 85730; 99284; J0780; J3490

== ENCOUNTER 2022-09-22 17:01 | Emergency (ER) | payer BC, SELFPAY ==
[2022-09-22 17:05] VITALS: BP 134/90; PULSE 88; RESP 20; TEMP 36.9; O2SAT 98
--- NOTE | 2022-09-22 17:19 | ED.GENADUL_ITS ---
Discharge Plan Disposition Patient Disposition: Home Discharge Details Clinical Impression: Mass of left side of neck Primary Care Provider: Luther Toure ED Provider: Neil Diez Home Meds and New Rx's Prescriptions: No Action magnesium oxide 400 mg magnesium capsule 400 mg PO DAILY riboflavin (vitamin B2) 100 mg tablet 200 mg PO DAILY vitamin B complex Tablet 1 tab PO DAILY aspirin [Adult Aspirin Regimen] 81 mg tablet,delayed release (DR/EC) 81 mg PO DAILY omega 4-iys-wfb-fish oil [Fish Oil] 60-90-500 mg capsule 1 cap PO DAILY levothyroxine [Synthroid] 75 MCG tablet 50 mcg PO DAILY acetaminophen [Tylenol Extra Strength] 500 mg Tablet 1,000 mg PO PRN PRN Discharge Instructions Additional Instructions: You have a mass in the left side of your neck which is most likely a lymph node. As needed please take acetaminophen (Tylenol) 1000 mg 3 times a day as needed for pain. Please follow-up with your primary care provider as you may benefit from a formal outpatient ultrasound. As we discussed if you develop worsening pain worsening swelling any redness overlying your lab or any fevers certainly return to the emergency department. Medical Decision Making This is an overall very well-appearing normothermic and not tachycardic 57-year-old female with fibromuscular dysplasia and left-sided neck pain and swelling concerning for dissection. Her limited bedside ultrasound however is more consistent with an enlarged lymph node. Given the patient's age this is a slightly atypical finding. Furthermore given her lack of URI symptoms and fevers lymphadenopathy is less likely. Finally the enlarged area is slightly below her anterior cervical chain making lymphadenopathy less likely. She did have a scratch from a cat on her right hand several weeks ago but no ulcerated areas and no fevers so I am not suspicious for cat scratch fever. She has no rash on her neck to suggest zoster. She has had no recent trauma to her neck nor any chiropractic manipulation however her history of fibromuscular dysplasia certainly makes her high risk for dissection. She does tell me that she has had an adverse reaction to contrast load from a CT scan several months ago. She said that when she got home she began having some discomfort in her throat and felt itchy for which she took diphenhydramine. We will plan on pretreating with methylprednisolone and diphenhydramine and reassessing following scans. There is no fluctuance to suggest abscess. No pain out of proportion to suggest necrotizing soft tissue infection. No surrounding erythema to suggest cellulitis. 7:[address] returned and was reassuring against dissection. I met with the patient and her brother and explained that I felt that she most likely had a swollen lymph node. Given no overlying skin changes nor any fluctuance I suspicion was low for suppurative node or abscess so no indication for IV antibiotics. No fevers to suggest cat scratch disease so we will observe off of antibiotics and pursue an empiric trial of expectant outpatient management. Patient had no adverse reaction to IV contrast. She has a prescheduled appointment with her primary care for follow-up tomorrow which I encouraged her to keep. HPI General Date/Time Provider Initiated Documentation: 09/22/22 17:18 . HPI Narrative: This is a 57-year-old female with a history of fibromuscular dysplasia arriving to the emergency department with lump in her neck that she noticed this morning. She has a history of internal carotid aneurysm and fibromuscular dysplasia for which she follows with vascular surgery at [facility]. She denies any dizziness blurred vision. She does say that she has a cat scratch several weeks ago on her right hand. She has had no recent fevers chills no URI symptoms. She said no recent foreign travel. She feels that that neck is enlarging on the right side. She has had no night sweats or unintentional weight loss. Related Data Home Medications Medication Instructions Recorded Confirmed Synthroid 75 mcg tablet 50 mcg PO DAILY 06/12/17 09/22/22 (levothyroxine) acetaminophen 500 mg tablet 1,000 mg PO PRN PRN 12/20/20 09/22/22 (Tylenol Extra Strength) magnesium oxide 400 mg PO DAILY 03/18/21 09/22/22 riboflavin (vitamin B2) 100 mg 200 mg PO DAILY 03/18/21 09/22/22 tablet vitamin B complex 1 tab PO DAILY 03/18/21 09/22/22 aspirin 81 mg tablet,delayed 81 mg PO DAILY 09/20/22 09/22/22 release (Adult Aspirin Regimen) omega 0-jwk-xbk-fish oil 60 mg-90 1 cap PO DAILY 09/20/22 09/22/22 mg-500 mg capsule (Fish Oil) Allergies Allergy/AdvReac Type Severity Reaction Status Date / Time NSAIDS (Non-Steroidal Allergy Verified 09/22/22 17:13 Anti-Inflamma Sulfa (Sulfonamide Allergy Skin Rash Unverified 09/22/22 17:13 Antibiotics) sulfamethoxazole Allergy Unverified 09/22/22 17:13 [From Bactrim] trimethoprim [From Bactrim] Allergy Unverified 09/22/22 17:13 General Stated Complaint: Vascular MARIS: 3 PFSH All Active Problems (Updated 09/22/22 @ 19:23 by Neil Diez MD) Mass of left side of neck (Acute) Nephrolithiasis (Chronic) Migraine headache without aura (Acute) Migraine headache with aura (Acute) Chronic subdural hematoma (Acute) Headache (Acute) Nausea (Acute) Visual changes (Acute) Renal cyst (Acute) 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) Hypothyroidism (Chronic) Medical History Breast mass Cholecystitis Delmar-Danlos syndrome Hypothyroidism Median arcuate ligament syndrome Migraine headache with aura Migraine headache without aura Nephrolithiasis 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 POTS (postural orthostatic tachycardia syndrome) Renal cyst Salivary duct stone Surgical History section Hernia repair History of surgical procedure coiling of aneurysm; laproscopic arcuate ligament release Hx of cholecystectomy S/P hysterectomy Family History Father Liver cancer Colon cancer A-fib Social History Smoking/Tobacco Use Status: Never Smoking risk assessment performed?: Yes Alcohol Intake: never Drug use: Never Substance use type: does not use Do you feel safe at home: Yes Do you feel safe in your relationship?: Yes Exam Narrative Exam Narrative: General: Well-appearing in no acute distress speaking in complete sentences. Head: Normocephalic, atraumatic Ear, nose, mouth, throat: Grossly normal inspection. Normal voice, handling secretions normally. Neck: On the left side of the patient's neck where the neck meets the chest just superior to the left collarbone there is an approximately 2 x 2 centimeter tender and large palpable subcutaneous nodule that is mobile. There is no fluctuance. There is no surrounding erythema. Cardiovascular: Well-perfused distal extremities. Respiratory: Nonlabored respiration. Gastrointestinal: Nondistended abdomen. Musculoskeletal: No edema. Moving all 4 extremities spontaneously. Skin: Normal for age and race, grossly normal temperature and turgor. No acute rash. Neurologic: Alert and appropriate, no apparent acute deficits. Psychiatric: Mood and manner are appropriate. Grooming and personal hygiene are appropriate. Course Vital Signs Vital signs: Vital Signs Temperature 36.9 C 09/22/22 17:05 Pulse 88 09/22/22 17:05 Respiratory Rate 20 09/22/22 17:05 Blood Pressure 134/90 09/22/22 17:05 Pulse Oximetry 98 09/22/22 17:05 Temperature 36.9 C 09/22/22 17:05 Temperature Source Temporal Artery Scan 09/22/22 17:05 Pulse 88 09/22/22 17:05 Respiratory Rate 20 09/22/22 17:05 Blood Pressure 134/90 09/22/22 17:05 Blood Pressure Position Sitting 09/22/22 17:05 Pulse Oximetry 98 09/22/22 17:05 Oxygen Delivery Method Room Air 09/22/22 17:05 Oxygen Flow Rate 0 09/22/22 17:05 Pain Level 2 09/22/22 17:05 POCUS Exam (ED) Limited Soft Tissue Exam DATE OF EXAM: 09/22/22 TIME OF EXAM: 18:09 PROVIDER THAT PERFORMED THE STUDY: Neil Diez LOCATION OF EXAM: Neck/left side REASON FOR EXAM: Lymphadenopathy Exam Complete DIFFERENTIAL DIAGNOSES: Enlarged area of mixed echogenicity with increased vascular markings most consistent with lymph node.
[2022-09-22 17:22] VITALS: RESP 20
--- NOTE | 2022-09-22 17:30 | DI.CT_ITS ---
Exam(s) CT CAROTID NECK CTA EXAM: CT CAROTID NECK CTA CLINICAL HISTORY: Left-sided neck swelling history of fibromuscular. TECHNIQUE: Imaging Protocol: Axial CT angiography was performed with multi-slice acquisition and mul ti-planar and/or 3D reconstructions. CONTRAST MATERIAL: Intravenous: Omnipaque 350 Contrast volume:75 ccstructured data in ml COMPARISON: CT CT BRAIN CTA from 01/15/2021 FINDINGS: Common Carotid: Right: No aneurysm, occlusion or significant stenosis. Left: No aneurysm, occlusion or significant stenosis. External Carotid: Right: No aneurysm, occlusion or significant stenosis. Left: No aneurysm, occlusion or significant stenosis. Internal Carotids: Mild beaded appearance of the distal internal carotid arteries from the C2 level to the skull base, w ith appearance consistent with fibromuscular dysplasia. Findings appear symmetric bilaterally. No a neurysm, occlusion or significant stenosis. Vertebral Artery: Right: No aneurysm, occlusion or significant stenosis. Left: No aneurysm, occlusion or significant stenosis. Basilar Artery: No aneurysm, occlusion or significant stenosis. Lung Apices: Normal. Bones: Degenerative changes cervical spine. Soft Tissues: Normal. IMPRESSION: Findings consistent with fibromuscular dysplasia of the distal internal carotid arteries in the neck. No significant stenosis or dissection. RADIATION DOSE DELIVERED: 319.15mGy.cm Total DLP DATA REPOSITORY: All CT scans at this facility are submitted to the National Radiology Data Registry (NRDR) Dose Index Registry (DIR) with the [employer] (ACR). RADIATION OPTIMIZATION: All CT scans at this facility use at least one of these dose optimization te chniques: automated exposure control; mA and/or kV adjustment per patient size (includes targeted exa ms where dose is matched to clinical indication); or iterative reconstruction.
[2022-09-22 18:19] LABS: HCT 42.3 % (36.0-46.0); HGB 14.5 g/dL (11.2-15.7); MCHC 34.3 % (32.0-36.0); MCV 87 fL (80-95); MPV 9.7 fL (8.0-11.0); Platelet Count 192 10^3/uL (130-400); RBC 4.84 10^6/uL (3.93-5.22); RDW 12.3 % (11.7-14.6); RDW-SD 39.8 fL; WBC 4.29 10^3/uL (4.4-10.8)
[2022-09-22] MEDS: methylPREDNISolone SUCC 125 MG VIAL IVP (18:24)
[2022-09-22] MEDS: diphenhydrAMINE 50 MG/ML VIAL 25 MG IVP (18:24)
[2022-09-22] MEDS: Normal Saline Flush 10 ML SYR IVP ×2 (18:25→18:55)
[2022-09-22 18:31] LABS: Anion Gap 7.8 mmol/L (3-11); BUN 13 mg/dL (7-18); CO2 29.2 mmol/L (21.0-32.0); CREATININE 0.5 mg/dL (0.55-1.02); Calcium 9.4 mg/dL (8.5-10.1); Chloride 102 mmol/L (98-107); Estimated GFR 107.98 (mL/min/1.73m2); Glucose 101 mg/dL (74-106); Potassium 3.7 mmol/L (3.5-5.1); Sodium 139 mmol/L (136-145)
[2022-09-22] MEDS: Omnipaque 350 MG/ML 100 ML BTL IJ (18:54)
[2022-09-22] MEDS: Normal Saline - Diluent 50 ML VIAL IJ (18:54)
[2022-09-22] MEDS: Normal Saline 250 ML 500 ML IV (19:00)
--- NOTE | 2022-09-22 19:00 | NUR.NOTE ---
Nursing Note: Pt return from DI, tolerated scan w/o difficulty. Pt denies change in complaints, states area is uncomfortsble but does not require intervention at this time, cont. to monitor.
[2022-09-22 19:07] VITALS: BP 138/77; PULSE 75; RESP 16; O2SAT 95
--- NOTE | 2022-09-22 19:07 | DI.VRAD_ITS ---
PROCEDURE INFORMATION: Exam: CTA Neck With Contrast Exam date and time: 09/22/2022 6:41 PM Age: 57 years old Clinical indication: Other: Left-sided neck swelling history of fibromuscular; Additional info: Sprscapular anneursym or dissection TECHNIQUE: Imaging protocol: Computed tomographic angiography of the neck with contrast. 3D rendering (Not supervised by radiologist): MIP and/or 3D reconstructed images were created by the technologist. Contrast material: OMNIPAQUE 350; Contrast volume: 75 ml; Contrast route: INTRAVENOUS (IV); COMPARISON: CT BRAIN NECK CTA 11/09/2020 8:22 AM FINDINGS: Right common carotid artery: No stenosis. No dissection or occlusion. Right internal carotid artery: No stenosis of the extracranial segment. No dissection or occlusion. Right external carotid artery: No occlusion or stenosis of the origin. Left common carotid artery: No stenosis. No dissection or occlusion. Left internal carotid artery: No stenosis of the extracranial segment. No dissection or occlusion. Left external carotid artery: No occlusion or stenosis of the origin. Right vertebral artery: No stenosis. No dissection or occlusion. Left vertebral artery: No stenosis. No dissection or occlusion. Soft tissues: Normal. No significant soft tissue swelling. Bones/joints: No acute fracture. IMPRESSION: No stenosis or occlusion. REFERENCES: NASCET CRITERIA. The degree of stenosis in the cervical segment of the internal carotid artery is based on NASCET criteria. Normal is no stenosis. Mild is less than 50% stenosis. Moderate is 50-69% stenosis. Severe is 70% to 99% stenosis. Total occlusion is no detectable patent lumen. Dictated and Authenticated by: Kiran Hardy MD. Ordering:CLARITZA Trejo MD
[2022-09-22 20:12] VITALS: BP 134/84; PULSE 71; RESP 18; O2SAT 95
== END 2022-09-22 20:13 | disposition home or self-care (01) ==
PROVIDERS: Emergency Provider Emergency Medicine; PCP Family Medicine
DX: R22.1 Localized swelling, mass and lump, neck (principal); E03.9 Hypothyroidism, unspecified; Q79.60 Ehlers-Danlos syndrome, unspecified
CPT/HCPCS: 36415; 70498; 76536; 80048; 85027; 96374; 96375; 99285; 99284; J1200; J2930; J3490

== ENCOUNTER 2022-12-12 02:25 | Outpatient (CLI) | payer BC, SELFPAY ==
--- NOTE | 2022-12-12 10:23 | DI.RAD_ITS ---
Exam(s) RF BARIUM SWALLOW EXAM: RF BARIUM SWALLOW CLINICAL HISTORY: CP level dysphagia,r13.14 TECHNIQUE: 2D and realtime digital imaging was performed. CONTRAST MATERIAL: Thick and thin barium and barium tablet were administered. COMPARISON: CR XR PORTABLE CHEST AP from 10/07/2018 FINDINGS: The PA and lateral chest films show normal heart size and clear lung hough. The lateral surgical services manager view of the neck is unremarkable.Esophagus: The patient swallowed barium without difficulty. Noevidence fo r mucosal erosions. Nofold thickening. No mass is visible. Nostricture. Motility: There is a normal primary stripping wave. No tertiary contractions were noted. There is no hiatal hernia. Nogastroesophageal reflux was observed during the exam. IMPRESSION: Normal barium swallow. RADIATION DOSE DELIVERED: baljinder Chin=4.12 mGy
[2022-12-12] MEDS: Barium Sulfate 60% W/V 355 ML BTL PO (10:26)
[2022-12-12] MEDS: Barium Sulfate 98% W/W 140 ML BTL PO (10:26)
[2022-12-12] MEDS: Simethicone/Sod Bicarb/Cit Ac, 4 gram PACKET 1 PACKET PO (10:27)
== END 2022-12-12 02:45 ==
PROVIDERS: PCP Family Medicine; Visit Provider Otolaryngology
DX: R13.14 Dysphagia, pharyngoesophageal phase (principal)
CPT/HCPCS: 74221; J3490

== ENCOUNTER 2023-11-25 10:00 | Emergency (ER) | payer BC, SELFPAY ==
[2023-11-25 10:05] VITALS: BP 189/89; PULSE 84; RESP 15; TEMP 36.3; O2SAT 100
--- NOTE | 2023-11-25 10:15 | RT.EKG_ITS ---
APPROVED REPORT Exam: Resting ECG Reason for Exam: weakness Patient Location: E HR:66 bpm ECG Measurements Heart Rate 66 AXIS NM 159 P 70 QRSd 84 QRS 57 QT 376 T 52 QTc 395 Conclusion Sinus rhythm...normal P axis, V-rate 60- 99
--- NOTE | 2023-11-25 10:15 | DI.CT_ITS ---
Exam(s) CT HEAD WO EXAM: CT HEAD WO CLINICAL HISTORY: head injury, n/v hx of subdural. TECHNIQUE: Imaging Protocol: Axial computed tomography images with coronal and sagittal reformatted images were created and reviewed COMPARISON: CT CT BRAIN CTA from 01/15/2021 FINDINGS: Ventricles and Extra axial spaces: Normal in size and morphology for the patient's age. Hemorrhage: None. Cerebral parenchyma: No evidence of acute infarct or mass. Midline shift: None. Brainstem/Cerebellum: Normal. Calvarium: Normal. Visualized Paranasal sinuses:Mucous retention in the left maxillary sinus. Mastoids: Clear. Soft Tissues: Unremarkable. ORBITS: Unremarkable. PITUITARY: Not enlarged. IMPRESSION: No acute intracranial process. RADIATION DOSE DELIVERED: Total DLP DATA REPOSITORY: All CT scans at this facility are submitted to the National Radiology Data Registry (NRDR) Dose Index Registry (DIR) with the [employer] (ACR). RADIATION OPTIMIZATION: All CT scans at this facility use at least one of these dose optimization te chniques: automated exposure control; mA and/or kV adjustment per patient size (includes targeted exa ms where dose is matched to clinical indication); or iterative reconstruction.
[2023-11-25] MEDS: Lactated Ringers 1,000 ML 1000 ML IV (10:32)
[2023-11-25] MEDS: Ondansetron 4 MG/2 ML VIAL IVP (10:32)
[2023-11-25 11:05] LABS: Abs Immature Grans 0.01 10^3/uL (0.0-0.06); Absolute Basophil Count 0.02 10^3/uL (0.0-0.2); Absolute Eosinophil Count 0.07 10^3/uL (0.0-0.7); Absolute Lymphocyte Count 1.46 10^3/uL (1.2-3.4); Absolute Monocyte Count 0.27 10^3/uL (0.1-0.8); Absolute Neutrophil Count 2.15 10^3/uL (1.2-6.7); Basophils % 0.5; Eosinophils % 1.8; HCT 43.5 % (36.0-46.0); HGB 15.1 g/dL (11.2-15.7); Immature Grans % 0.3; Lymphocytes % 36.7; MCH 31.1 pg (27.0-33.0); MCHC 34.7 % (32.0-36.0); MCV 90 fL (80-95); MPV 9.8 fL (8.0-11.0); Monocytes % 6.8; Neutrophils % 53.9; Platelet Count 171 10^3/uL (130-400); RBC 4.86 10^6/uL (3.93-5.22); RDW 12.5 % (11.7-14.6); RDW-SD 41.1 fL; WBC 3.98 10^3/uL (4.4-10.8)
[2023-11-25 11:09] LABS: Bilirubin Negative (Negative); Blood Negative (Negative); Clarity Clear (Clear); Glucose Negative (Negative); Ketones Negative (Negative); Leukocyte Esterase Negative (Negative); Nitrite Negative (Negative); Urobilinogen 0.2 mg/dL (Up to 0.2)
[2023-11-25 11:30] LABS: ALT 41 U/L (14-59); AST 22 U/L (15-37); Albumin 4.1 g/dL (3.4-5.0); Alkaline Phosphatase 84 U/L (46-116); Anion Gap 7.8 mmol/L (3-11); BUN 12 mg/dL (7-18); Bilirubin, Total 0.5 mg/dL (0.2-1.0); CO2 29.2 mmol/L (21.0-32.0); CREATININE 0.7 mg/dL (0.55-1.02); Calcium 9.3 mg/dL (8.5-10.1); Chloride 105 mmol/L (98-107); Estimated GFR 98.95 (mL/min/1.73m2); Glucose 118 mg/dL (74-106); Magnesium 1.8 mg/dL (1.8-2.4); Potassium 3.8 mmol/L (3.5-5.1); Sodium 142 mmol/L (136-145); TSH (W/Ref FT4) 1.75 uIU/mL (0.36-3.74); Total Protein 7.6 g/dL (6.4-8.2); Troponin I < 50 ng/L (< or =60)
--- NOTE | 2023-11-25 11:42 | DI.VRAD_ITS ---
PROCEDURE INFORMATION: Exam: CT Head Without Contrast Exam date and time: 11/25/2023 11:18 AM Age: 58 years old Clinical indication: Other: Head injury, n/v/hx of subdural TECHNIQUE: Imaging protocol: Computed tomography of the head without contrast. Radiation optimization: All CT scans at this facility use at least one of these dose optimization techniques: automated exposure control; mA and/or kV adjustment per patient size (includes targeted exams where dose is matched to clinical indication); or iterative reconstruction. COMPARISON: CT BRAIN CTA 01/15/2021 1:40 PM FINDINGS: Brain: There is no acute intracranial hemorrhage. No extra-axial fluid collection. No evidence of acute infarct. Cruz white differentiation is intact. There is no evidence of mass. There is no mass effect or midline shift. Cerebral ventricles: No ventriculomegaly. Paranasal sinuses: There is opacification of posterior septated portion left maxillary sinus otherwise visualized paranasal sinuses clear. Mastoid air cells: No significant mastoid effusion. Bones/joints: No acute fracture. Soft tissues: Unremarkable as visualized. IMPRESSION: No evidence of acute intracranial abnormality. No acute hemorrhage. No evidence of acute infarct or mass. Dictated and Authenticated by: Magalie Bridges MD. Ordering:SIMRAN Vickers MD
--- NOTE | 2023-11-25 11:47 | ED.GENADUL_ITS ---
Discharge Plan Disposition Patient Disposition: Home Condition: Stable Discharge Details Clinical Impression: Concussion Primary Care Provider: Luther Toure ED Provider: Alee Estevez Home Meds and New Rx's Prescriptions: Continued magnesium oxide 400 mg magnesium capsule 400 mg PO DAILY aspirin [Adult Aspirin Regimen] 81 mg tablet,delayed release (DR/EC) 81 mg PO DAILY omega 2-chr-mto-fish oil [Fish Oil] 60-90-500 mg capsule 1 cap PO DAILY levothyroxine [Synthroid] 75 MCG tablet 50 mcg PO DAILY lidocaine HCl [Xylocaine] 1 pwd miscellaneous .2-4x day multivitamin [Daily Multi-Vitamin] Tablet 1 tab PO DAILY sodium chloride 1,000 mg tablet,soluble 1,000 mg PO TID acetaminophen [Tylenol Extra Strength] 500 mg Tablet 1,000 mg PO PRN PRN Discharge Instructions Instructions: Concussion (ED) Additional Instructions: Zofran as needed for nausea and vomiting You may take Tylenol as needed for discomfort Try to limit reading and electronic use Please refer to enclose packet information regarding concussion signs and symptoms Please be reevaluated should you develop worsening symptoms including headache, vomiting, or new presenting symptoms that are concerning to you Referrals: Luther Toure [Primary Care Provider] - 1 week Discharge Data Discharge Date/Time-TO BE ENTERED AT DEPARTURE: 11/25/23 12:05 HPI General Date/Time Provider Initiated Documentation: 11/25/23 10:08 . 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 States she had a headache and felt nauseous and vomiting immediately after that episode. She states that headache has completely resolved and there was no loss of consciousness at the time, however she still feels foggy and generally weak reportedly. She denies any chest pain or shortness of breath. She denies any fever or chills. She states she has been able to ambulate well and does not feel dizzy. She states she has been nauseous without vomiting but able to drink fluids this morning. Denies any history of coagulopathy. Related Data Home Medications Medication Instructions Recorded Confirmed Synthroid 75 mcg tablet 50 mcg PO DAILY 06/12/17 11/25/23 (levothyroxine) acetaminophen 500 mg tablet 1,000 mg PO PRN PRN 12/20/20 11/25/23 (Tylenol Extra Strength) magnesium oxide 400 mg PO DAILY 03/18/21 11/25/23 aspirin 81 mg tablet,delayed 81 mg PO DAILY 09/20/22 11/25/23 release (Adult Aspirin Regimen) omega 6-rwf-stq-fish oil 60 mg-90 1 cap PO DAILY 09/20/22 11/25/23 mg-500 mg capsule (Fish Oil) lidocaine HCl 1 pwd miscellaneous .2-4x day 10/25/22 11/25/23 multivitamin (Daily Multi-Vitamin 1 tab PO DAILY 10/25/22 11/25/23 tablet) sodium chloride 1,000 mg soluble 1,000 mg PO TID 10/25/22 11/25/23 tablet Allergies Allergy/AdvReac Type Severity Reaction Status Date / Time Iodinated Contrast Media Allergy Severe Anaphylaxis Verified 11/25/23 10:13 NSAIDS (Non-Steroidal Allergy Mild Other (See Verified 11/25/23 10:13 Anti-Inflamma Comment) galcanezumab-gnlm Allergy angioedema Verified 11/25/23 10:13 [From Emgality Pen] propranolol Allergy tongue Verified 11/25/23 10:13 swelling Sulfa (Sulfonamide Allergy Skin Rash Unverified 11/25/23 10:13 Antibiotics) sulfamethoxazole Allergy Skin Rash Unverified 11/25/23 10:13 [From Bactrim] trimethoprim [From Bactrim] Allergy Skin Rash Unverified 11/25/23 10:13 General Stated Complaint: HeadInjury MARIS: 3 Exam Narrative Exam Narrative: This 58-year-old female presents alert and oriented x 4, no acute distress, pupils equal round reactive to light and accommodation Lungs clear to auscultation bilaterally, cardiac rate rhythm regular, no abdominal tenderness, no visible sign of head trauma, no hemotympanum,, GCS 15, cranial nerves II through XII intact, ambulatory with steady gait Course Vital Signs Vital signs: Vital Signs Temperature 36.3 C L 11/25/23 10:05 Pulse 84 11/25/23 10:05 Respiratory Rate 15 11/25/23 10:05 Blood Pressure 189/89 H 11/25/23 10:05 Pulse Oximetry 100 11/25/23 10:05 Temperature 36.3 C L 11/25/23 10:05 Temperature Source Skin 11/25/23 10:05 Pulse 84 11/25/23 10:05 Respiratory Rate 15 11/25/23 10:05 Respiratory Effort Normal, Non-Labored 11/25/23 10:17 Respiratory Depth Normal 11/25/23 10:17 Respiratory Pattern Normal 11/25/23 10:17 Blood Pressure 189/89 H 11/25/23 10:05 Blood Pressure Position Sitting 11/25/23 10:05 Pulse Oximetry 100 11/25/23 10:05 Oxygen Delivery Method Room Air 11/25/23 10:05 Oxygen Flow Rate 0 11/25/23 10:05 Pain Level 0 11/25/23 10:05 Lab/Test Results Lab/Test Results: Laboratory Tests Range/Units 11/25/23 11/25/23 10:53 10:59 WBC (4.4-10.8) 10^3/uL 3.98 L RBC (3.93-5.22) 10^6/uL 4.86 Hgb (11.2-15.7) g/dL 15.1 Hct (36.0-46.0) % 43.5 MCV (80-95) fL 90 MCH (27.0-33.0) pg 31.1 MCHC (32.0-36.0) % 34.7 RDW (11.7-14.6) % 12.5 Plt Count (130-400) 10^3/uL 171 MPV (8.0-11.0) fL 9.8 Immature Gran % 0.3 Neutrophils % 53.9 Lymphocytes % 36.7 Monocytes % 6.8 Eosinophils % 1.8 Basophils % 0.5 Nucleated RBC % (0.0-0.3) % 0.0 Absolute Neutrophils (1.2-6.7) 10^3/uL 2.15 Absolute Lymphocytes (1.2-3.4) 10^3/uL 1.46 Absolute Monocytes (0.1-0.8) 10^3/uL 0.27 Absolute Eosinophils (0.0-0.7) 10^3/uL 0.07 Absolute Basophils (0.0-0.2) 10^3/uL 0.02 Sodium (136-145) mmol/L 142 Potassium (3.5-5.1) mmol/L 3.8 Chloride (98-107) mmol/L 105 Carbon Dioxide (21.0-32.0) mmol/L 29.2 Anion Gap (3-11) mmol/L 7.8 BUN (7-18) mg/dL 12 Creatinine (0.55-1.02) mg/dL 0.7 Est GFR (CKD-EPI 2020) (mL/min/1.73m2) 98.95 Glucose (74-106) mg/dL 118 H Calcium (8.5-10.1) mg/dL 9.3 Magnesium (1.8-2.4) mg/dL 1.8 Total Bilirubin (0.2-1.0) mg/dL 0.5 AST (15-37) U/L 22 ALT (14-59) U/L 41 Alkaline Phosphatase (46-116) U/L 84 Troponin I (< or =60) ng/L < 50 Total Protein (6.4-8.2) g/dL 7.6 Albumin (3.4-5.0) g/dL 4.1 TSH (0.36-3.74) uIU/mL 1.75 Urine Color (Yellow) Straw Urine Clarity (Clear) Clear Urine pH (5-8) 7.0 Ur Specific Kelley (1.005-1.025) 1.010 Urine Protein (Neg-Trace) mg/dL Negative Urine Ketones (Negative) mg/dL Negative Urine Blood (Negative) Negative Urine Nitrite (Negative) Negative Urine Bilirubin (Negative) Negative Urine Urobilinogen (Up to 0.2) mg/dL 0.2 Ur Leukocyte Esterase (Negative) Negative Urine Glucose (Negative) mg/dL Negative Medical Decision Making 58-year-old female presenting with head injury on Monday of this week presenting in no acute distress, resting comfortably in room with stable vitals. Given medical comorbidities and exam we will order CT head and diagnostic labs with EKG. Patient has a negative appearing CT head for acute abnormality and diagnostic labs are reassuring Urinalysis within normal limits, ambulatory with steady gait with nonfocal neurological exam. Negative EKG, negative troponin per diagnostic lab interpretation. Patient was observed for approximately 2 and half hours in the emergency department and able to tolerate p.o. at time of discharge home. Patient states that she feels improved from her nausea after Zofran administration. I suspect patient has concussion and this was reviewed with her, she will continue to use caution with ambulation and supportive care at home. She will be given a prescription for Zofran and encouraged to follow-up w ith primary care physician next week Return precautions reviewed and patient expressed understanding. 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) Hypothyroidism (Chronic) Medical History Abdominal aortic aneurysm (AAA) w/o rupture 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 AVF (arteriovenous fistula) Biliary colic Breast mass Celiac artery stenosis Cholecystitis Chronic fatigue 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 Fibromuscular dysplasia History of renal calculi POTS (postural orthostatic tachycardia syndrome) Retroperitoneal hemorrhage Salivary duct stone Subdural hematoma Surgical History section Hernia repair History of surgical procedure coiling of aneurysm; laproscopic arcuate ligament release Hx of cholecystectomy S/P aneurysm repair Ruptured PDA S/P hysterectomy Family History Father Liver cancer Colon cancer A-fib Social History Smoking/Tobacco Use Status: Never Smoking risk assessment performed?: Yes Alcohol Intake: never Drug use: Never Substance use type: does not use Do you feel safe at home: Yes Do you feel safe in your relationship?: Yes
[2023-11-25 12:02] VITALS: BP 148/57; PULSE 67; RESP 13; O2SAT 97
== END 2023-11-25 12:05 | disposition home or self-care (01) ==
PROVIDERS: Emergency Provider Physician Assistant; PCP Family Medicine
DX: S06.0X0A Concussion without loss of consciousness, initial encounter (principal); R11.0 Nausea; R53.1 Weakness; W22.8XXA Striking against or struck by other objects, initial encounter; Z86.79 Personal history of other diseases of the circulatory system
CPT/HCPCS: 80053; 93005; 96361; 96374; 99284; 70450; 81003; 83735; 84443; 84484; 85025; 93010; 99283; J2405

== ENCOUNTER 2024-08-14 15:23 | Emergency (ER) | payer BC, OTHER, SELFPAY ==
[2024-08-14] VITALS (28 sets, daily range): BP systolic 120–181; BP diastolic 57–107; PULSE 70–103; RESP 11–21; TEMP 36.8; O2SAT 93–99
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
[2024-08-14 16:09] LABS: Abs Immature Grans 0.01 10^3/uL (0.0-0.06); Absolute Basophil Count 0.02 10^3/uL (0.0-0.2); Absolute Lymphocyte Count 1.59 10^3/uL (1.2-3.4); Absolute Monocyte Count 0.31 10^3/uL (0.1-0.8); Absolute Neutrophil Count 2.59 10^3/uL (1.2-6.7); Basophils % 0.4 %; Eosinophils % 2.2 %; HCT 39.3 % (36.0-46.0); Immature Grans % 0.2 %; Lymphocytes % 34.4 %; MCHC 35.6 % (32.0-36.0); MCV 87 fL (80-95); MPV 9.8 fL (8.0-11.0); Monocytes % 6.7 %; Neutrophils % 56.1 %; Platelet Count 181 10^3/uL (130-400); RBC 4.52 10^6/uL (3.93-5.22); RDW 12.1 % (11.7-14.6); WBC 4.62 10^3/uL (4.4-10.8)
[2024-08-14] MEDS: methylPREDNISolone SUCC 40 MG VIAL IVP (16:19)
[2024-08-14] MEDS: diphenhydrAMINE 50 MG/ML VIAL IVP (16:19)
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
[2024-08-14 16:32] LABS: ALT 44 U/L (14-59); AST 26 U/L (15-37); Albumin 3.7 g/dL (3.4-5.0); Alkaline Phosphatase 89 U/L (46-116); Anion Gap 8.3 mmol/L (3-11); BUN 16 mg/dL (7-18); Bilirubin, Total 0.35 mg/dL (0.2-1.0); CO2 27.7 mmol/L (21.0-32.0); CREATININE 0.7 mg/dL (0.55-1.02); Calcium 9.2 mg/dL (8.5-10.1); Chloride 105 mmol/L (98-107); Estimated GFR 98.34 (mL/min/1.73m2); Glucose 158 mg/dL (74-106); Magnesium 1.6 mg/dL (1.8-2.4); Potassium 3.8 mmol/L (3.5-5.1); Sodium 141 mmol/L (136-145); Total Protein 6.7 g/dL (6.4-8.2)
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
[2024-08-14] MEDS: Normal Saline - Diluent 50 ML VIAL IJ (17:42)
== END 2024-08-14 19:13 | disposition home or self-care (01) ==
PROVIDERS: Physician Assistant; Emergency Provider Physician Assistant; PCP Family Medicine
DX: M25.512 Pain in left shoulder (principal); M54.2 Cervicalgia; Q79.60 Ehlers-Danlos syndrome, unspecified; I77.89 Other specified disorders of arteries and arterioles; Z79.82 Long term (current) use of aspirin; V43.62XA Car passenger injured in collision with other type car in traffic accident, initial encounter
CPT/HCPCS: 00123; 74177; 80053; 96374; 96375; 99285; 70450; 71260; 72125; 73030; 83735; 85025; J1200; J2919

== ENCOUNTER 2024-09-25 09:39 | Outpatient (REF) | payer BC, SELFPAY | END 2024-09-25 09:40 | disposition home or self-care (01) | LOC: LBN 09:39 | PROVIDERS: PCP Family Medicine; Visit Provider Nurse Practitioner Gerontology | DX: R10.2 Pelvic and perineal pain (principal); R35.0 Frequency of micturition; R39.9 Unspecified symptoms and signs involving the genitourinary system; N28.1 Cyst of kidney, acquired; N39.9 Disorder of urinary system, unspecified; N20.0 Calculus of kidney | CPT/HCPCS: 87077; 87086; 87186 ==

== ENCOUNTER 2024-09-28 17:19 | Emergency (ER) | payer BC, SELFPAY ==
[2024-09-28] VITALS (53 sets, daily range): BP systolic 109–152; BP diastolic 58–87; PULSE 66–93; RESP 10–22; TEMP 36.6–37.3; O2SAT 85–99
--- NOTE | 2024-09-28 17:15 | RT.EKG_ITS ---
APPROVED REPORT Exam: Resting ECG Reason for Exam: chest pain Patient Location: E HR:84 bpm ECG Measurements Heart Rate 84 AXIS CA 138 P 79 QRSd 92 QRS 87 QT 372 T 60 QTc 441 Conclusion Sinus rhythm. [address] depression
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
[2024-09-28] MEDS: diphenhydrAMINE 50 MG/ML VIAL IVP (19:17)
[2024-09-28] MEDS: methylPREDNISolone SUCC 40 MG VIAL IVP (19:17)
[2024-09-28 19:20] LABS: Abs Immature Grans 0.02 10^3/uL (0.0-0.06); Absolute Basophil Count 0.01 10^3/uL (0.0-0.2); Absolute Eosinophil Count 0.01 10^3/uL (0.0-0.7); Absolute Lymphocyte Count 0.77 10^3/uL (1.2-3.4); Absolute Monocyte Count 0.45 10^3/uL (0.1-0.8); Absolute Neutrophil Count 1.67 10^3/uL (1.2-6.7); Basophils % 0.3 %; Eosinophils % 0.3 %; HCT 39.3 % (36.0-46.0); HGB 13.7 g/dL (11.2-15.7); Immature Grans % 0.7 %; Lymphocytes % 26.3 %; MCH 30.4 pg (27.0-33.0); MCHC 34.9 % (32.0-36.0); MCV 87 fL (80-95); MPV 9.6 fL (8.0-11.0); Monocytes % 15.4 %; Platelet Count 155 10^3/uL (130-400); RBC 4.51 10^6/uL (3.93-5.22); RDW 12.2 % (11.7-14.6); RDW-SD 39.3 fL; WBC 2.93 10^3/uL (4.4-10.8)
[2024-09-28 19:36] LABS: ALT 43 U/L (14-59); AST 26 U/L (15-37); Albumin 3.9 g/dL (3.4-5.0); Alkaline Phosphatase 104 U/L (46-116); Anion Gap 8.8 mmol/L (3-11); BUN 10 mg/dL (7-18); Bilirubin, Total 0.36 mg/dL (0.2-1.0); CO2 27.2 mmol/L (21.0-32.0); CREATININE 0.7 mg/dL (0.55-1.02); Calcium 9.2 mg/dL (8.5-10.1); Chloride 102 mmol/L (98-107); Estimated GFR 98.34 (mL/min/1.73m2); Glucose 99 mg/dL (74-106); Potassium 3.6 mmol/L (3.5-5.1); Sodium 138 mmol/L (136-145); Total Protein 7.1 g/dL (6.4-8.2); Troponin I 8 ng/L (<or=51)
[2024-09-28 19:45] LABS: Lipase 57 U/L (<78)
[2024-09-28] MEDS: Omnipaque 350 MG/ML 100 ML BTL IJ (20:18)
[2024-09-28] MEDS: Normal Saline - Diluent 50 ML VIAL IJ (20:20)
[2024-09-28 20:35] LABS: Bilirubin Negative (Negative); Blood Negative (Negative); Clarity Clear (Clear); Glucose Negative (Negative); Ketones 40 mg/dL (Negative); Leukocyte Esterase Small (Negative); Nitrite Negative (Negative); Urobilinogen 0.2 mg/dL (Up to 0.2); pH 6.5 (5-8)
[2024-09-28 20:42] LABS: Bacteria Few HPF (Negative); C & S Indicated? Yes; Casts Negative LPF (Negative); Crystals Negative HPF (Negative); Epithelial Cells Rare HPF (Negative); Mucus Negative (Negative); RBC Negative HPF (0-2)
[2024-09-28 21:50] LABS: Troponin I 9 ng/L (<or=51)
--- NOTE | 2024-09-28 22:06 | DI.VRAD_ITS ---
PROCEDURE INFORMATION: Exam: CTA Chest With Contrast CTA Abdomen and Pelvis With Contrast Exam date and time: 09/28/2024 8:26 PM Age: 59 years old Clinical indication: Screening exam; Other screening; Purpose: Pancreaticoduodenal aneurysm repair, pain left chest TECHNIQUE: Imaging protocol: Computed tomographic angiography of the chest with contrast. Exam focused on the arteries. Computed tomographic angiography of the abdomen and pelvis with contrast. Exam focused on the arteries. 3D rendering (Not supervised by radiologist): MIP and/or 3D reconstructed images were created by the technologist. COMPARISON: CT CHEST/ABD/PEL W 08/14/2024 5:52 PM FINDINGS: VASCULATURE: Pulmonary arteries: Limited pulmonary artery enhancement with a density of only 139 Hounsfield units obtained over the pulmonary trunk. Within the limits of the exam, no pulmonary embolism is seen in the pulmonary trunk or in the main pulmonary arteries. The segmental and distal pulmonary arteries are not adequately enhanced for confident diagnosis or exclusion of pulmonary emboli. Aorta: No thoracic or abdominal aortic aneurysm or dissection. Celiac trunk and mesenteric arteries: Celiac and superior mesenteric arteries widely patent. Proximal inferior mesenteric artery obscured by artifact from adjacent hyperdense calcification or surgical material but otherwise patent. Hyperdense material in the region of the pancreatic head suspicious for embolic coiling. Correlation with procedure history recommended. Renal arteries: Right and left renal arteries widely patent. Right iliac arteries: Right common iliac, internal iliac, and external iliac arteries widely patent. Right femoral/popliteal arteries: Right common femoral and visualized proximal right superficial femoral arteries widely patent. Left iliac arteries: Left common iliac, internal iliac, and external iliac arteries widely patent. Left femoral/popliteal arteries: Left common femoral and visualized proximal left superficial femoral arteries widely patent. Thyroid: Normal-sized thyroid gland. CHEST: Lungs: No pulmonary consolidation. Pleural spaces: No pleural effusion or pneumothorax. Heart: Normal-sized heart. ABDOMEN AND PELVIS: Liver: Probable fatty infiltration of the liver, difficult to confidently diagnose by CT imaging after administration of intravenous contrast. Gallbladder and biliary ducts: Prior cholecystectomy with mild postop biliary prominence. Pancreas: Pancreas partially obscured by close apposition of adjacent structures but grossly unremarkable, as seen. Spleen: Unusual splenic contour with an appearance suspicious for an old infarct or prior trauma, also seen on prior exams. Adrenal glands: Normal appearing adrenal glands. Kidneys and ureters: 1.7 cm left renal cysts. Otherwise normal-appearing kidneys. No hydronephrosis. Ureters obscured. Stomach and bowel: No oral contrast. Stomach partially decompressed. No small bowel dilatation to suggest obstruction. Diverticulosis through the sigmoid colon but no evidence of diverticulitis or colitis. Rectum moderately distended with gas. Appendix: Appendix not identified, obscured if present. Correlation with surgical history recommended. If there is clinical concern for acute appendicitis and the patient still has an appendix, additional evaluation would be recommended. Intraperitoneal space: Small amount of fluid in the deep pelvis and left upper quadrant. No free air. Urinary bladder: Urinary bladder partially collapsed but grossly unremarkable, as seen. Reproductive: Prior hysterectomy. Normal-appearing left ovary. Right ovary not identified, obscured if present. Correlation with surgical history recommended. Lymph nodes: No pathologically enlarged mediastinal or hilar lymph nodes. No pathologically enlarged mesenteric, retroperitoneal, or pelvic sidewall lymph nodes. Bones/joints: No acute fracture seen among the bones of the chest, abdomen, or pelvis. Small Schmorl's nodes at several levels. Tiny vestigial ribs at L1. Prominent discogenic degeneration at L4-L5 and L5-S1. Soft tissues: No gross soft tissue mass or fluid collection seen in the chest wall. No significant ventral or inguinal hernia. IMPRESSION: 1. No thoracic or abdominal aortic aneurysm or dissection. 2. Metallic densities adjacent to the pancreatic head. Embolic coiling material is suspected given the provided clinical history. 3. Probable fatty infiltration of the liver, difficult to confidently diagnose by CT imaging after administration of intravenous contrast. 4. Small amount of fluid in the deep pelvis and left upper quadrant, nonspecific. Dictated and Authenticated by: Jason Watt MD. Orderin Zenaida Vickers MD
--- NOTE | 2024-09-29 20:21 | ED.GENADUL_ITS ---
Discharge Plan Disposition Patient Disposition: Home Condition: Stable Discharge Details Clinical Impression: COVID-19, Acute flank pain Primary Care Provider: Luther Toure ED Provider: Alee Estevez Home Meds and New Rx's Prescriptions: Continued magnesium oxide 400 mg magnesium capsule 400 mg PO DAILY aspirin [Adult Aspirin Regimen] 81 mg tablet,delayed release (DR/EC) 81 mg PO DAILY omega 6-vyf-jex-fish oil [Fish Oil] 60-90-500 mg capsule 1 cap PO DAILY levothyroxine [Synthroid] 75 MCG tablet 50 mcg PO DAILY multivitamin [Daily Multi-Vitamin] Tablet 1 tab PO DAILY sodium chloride 1,000 mg tablet,soluble 1,000 mg PO TID amoxicillin 500 mg capsule 500 mg PO TID Qty: 20 0RF acetaminophen [Tylenol Extra Strength] 500 mg Tablet 1,000 mg PO PRN PRN Discharge Instructions Instructions: Abdominal Pain, Adult ED, COVID-19 ED Additional Instructions: Please take Tylenol for supportive care Recheck with your doctor on Monday Your tests today are reassuring, however unfortunately your CAT scan was not able to visualize all the vessels in your lungs, I have low suspicion that you have a pulmonary embolism, however if your symptoms worsen or you become more short of breath please return to the emergency department for reassessment Referrals: Luther Toure [Primary Care Provider] - 1 day Discharge Data Discharge Date/Time-TO BE ENTERED AT DEPARTURE: 09/28/24 22:53 HPI General Date/Time Provider Initiated Documentation: 09/28/24 17:41 . HPI Narrative: The patient is a 59-year-old female with a history of pancreatic aneurysm, Delmar-Danlos syndrome, postural orthostatic tachycardia syndrome (POTS), arteriovenous fistula (AVF), fibromuscular dysplasia, and subdural hematoma. She presents with acute pain in the lower abdomen and chest. She was diagnosed with COVID-19 on Monday, marking her first episode of the disease. Her symptoms are concerning as they feel similar to when she had the retroperitoneal hemorrhage. She has not been coughing or experiencing significant shortness of breath, but she has mostly had a runny nose. She reports no fever, chills, or new medications. She is alert and oriented, and she is in no acute distress. Her labs and troponin do not show evidence of acute abnormality, and CTA of the chest, abdomen, and pelvis does not show evidence of any acute abnormality. She was made aware of these findings. At this time, the etiology of her pain is unclear, but she has had 2 troponins, which seems reasonable. Her pain has improved dramatically without any significant intervention in the emergency department. Related Data Home Medications ?Medication ?Instructions ?Recorded ?Confirmed Synthroid 75 mcg tablet 50 mcg PO DAILY 06/12/17 09/28/24 (levothyroxine) acetaminophen 500 mg tablet 1,000 mg PO PRN PRN 12/20/20 09/28/24 (Tylenol Extra Strength) magnesium oxide 400 mg PO DAILY 03/18/21 09/28/24 aspirin 81 mg tablet,delayed 81 mg PO DAILY 09/20/22 09/28/24 release (Adult Aspirin Regimen) omega 7-hbb-cnu-fish oil 60 mg-90 1 cap PO DAILY 09/20/22 09/28/24 mg-500 mg capsule (Fish Oil) multivitamin (Daily Multi-Vitamin 1 tab PO DAILY 10/25/22 09/28/24 tablet) sodium chloride 1,000 mg soluble 1,000 mg PO TID 10/25/22 09/28/24 tablet amoxicillin 500 mg capsule 500 mg PO TID #20 caps 09/27/24 09/28/24 Previous Rx's ?Medication ?Instructions ?Recorded amoxicillin 500 mg capsule 500 mg PO TID #20 caps 09/27/24 Allergies Allergy/AdvReac Type Severity Reaction Status Date / Time Iodinated Contrast Media Allergy Severe Anaphylaxis Verified 09/28/24 17:33 NSAIDS (Non-Steroidal Allergy Mild Other (See Verified 09/28/24 17:33 Anti-Inflamma Comment) cephalexin (From Keflex) Allergy Hives Verified 09/28/24 17:33 galcanezumab-gnlm (From Allergy angioedema Verified 09/28/24 17:33 Emgality Pen) nitrofurantoin (From Allergy Nausea Verified 09/28/24 17:33 Macrobid) propranolol Allergy tongue Verified 09/28/24 17:33 swelling Sulfa (Sulfonamide Allergy Skin Rash Unverified 09/28/24 17:33 Antibiotics) sulfamethoxazole (From Allergy Skin Rash Unverified 09/28/24 17:33 Bactrim) trimethoprim (From Bactrim) Allergy Skin Rash Unverified 09/28/24 17:33 Quinolones AdvReac Intermediate Contraindic Verified 09/28/24 17:33 ated General Stated Complaint: Abd Prob MARIS: 3 Exam Narrative Exam Narrative: General Appearance: The patient is alert and oriented. Vital signs: Within normal limits. HEENT: Within normal limits. Respiratory: Lungs are clear to auscultation. Gastrointestinal: There is tenderness in the left upper quadrant of the abdomen, no pulsatile mass or abdominal bruit, no CVA tenderness. Extremities: Distal pulses are intact in all four extremities. Skin: Warm and dry, no rash. Neurological: Normal. Course Vital Signs Vital signs: Vital Signs Temperature 36.6 C 09/28/24 17:22 Pulse 93 H 09/28/24 17:22 Respiratory Rate 15 09/28/24 17:22 Blood Pressure 137/87 09/28/24 17:22 Pulse Oximetry 98 09/28/24 17:22 Temperature 37.3 C 09/28/24 22:52 Pulse 67 09/28/24 22:52 Respiratory Rate 22 09/28/24 22:52 Blood Pressure 119/67 09/28/24 22:52 Blood Pressure Position Sitting 09/28/24 18:56 Pulse Oximetry 97 09/28/24 22:52 Oxygen Delivery Method Room Air 09/28/24 18:56 Oxygen Flow Rate 0 09/28/24 17:22 Pain Level 4 09/28/24 22:52 Lab/Test Results Lab/Test Results: 09/28/24 20:24 Urine - Reflex from Ua Urine Culture - Pending Laboratory Tests Range/Units 09/28/24 09/28/24 09/28/24 19:06 20:24 21:13 WBC (4.4-10.8) 10^3/uL 2.93 L RBC (3.93-5.22) 10^6/uL 4.51 Hgb (11.2-15.7) g/dL 13.7 Hct (36.0-46.0) % 39.3 MCV (80-95) fL 87 MCH (27.0-33.0) pg 30.4 MCHC (32.0-36.0) % 34.9 RDW (11.7-14.6) % 12.2 Plt Count (130-400) 10^3/uL 155 MPV (8.0-11.0) fL 9.6 Immature Gran % % 0.7 Neutrophils % % 57.0 Lymphocytes % % 26.3 Monocytes % % 15.4 Eosinophils % % 0.3 Basophils % % 0.3 Nucleated RBC % (0.0-0.3) % 0.0 Absolute Neutrophils (1.2-6.7) 10^3/uL 1.67 Absolute Lymphocytes (1.2-3.4) 10^3/uL 0.77 L Absolute Monocytes (0.1-0.8) 10^3/uL 0.45 Absolute Eosinophils (0.0-0.7) 10^3/uL 0.01 Absolute Basophils (0.0-0.2) 10^3/uL 0.01 Sodium (136-145) mmol/L 138 Potassium (3.5-5.1) mmol/L 3.6 Chloride (98-107) mmol/L 102 Carbon Dioxide (21.0-32.0) mmol/L 27.2 Anion Gap (3-11) mmol/L 8.8 BUN (7-18) mg/dL 10 Creatinine (0.55-1.02) mg/dL 0.7 Est GFR (CKD-EPI 2020) (mL/min/1.73m2) 98.34 Glucose (74-106) mg/dL 99 Calcium (8.5-10.1) mg/dL 9.2 Total Bilirubin (0.2-1.0) mg/dL 0.36 AST (15-37) U/L 26 ALT (14-59) U/L 43 Alkaline Phosphatase (46-116) U/L 104 Troponin I (<or=51) ng/L 8 Cancelled Total Protein (6.4-8.2) g/dL 7.1 Albumin (3.4-5.0) g/dL 3.9 Lipase (<78) U/L 57 Urine Color (Yellow) Yellow Urine Clarity (Clear) Clear Urine pH (5-8) 6.5 Ur Specific [place] (1.005-1.025) 1.020 Urine Protein (Neg-Trace) mg/dL Negative Urine Ketones (Negative) mg/dL 40 H Urine Blood (Negative) Negative Urine Nitrite (Negative) Negative Urine Bilirubin (Negative) Negative Urine Urobilinogen (Up to 0.2) mg/dL 0.2 Ur Leukocyte Esterase (Negative) Small H Urine RBC (0-2) HPF Negative Urine WBC (0-5) HPF 10-20 H Ur Epithelial Cells (Negative) HPF Rare Urine Crystals (Negative) HPF Negative Urine Bacteria (Negative) HPF Few Urine Casts (Negative) LPF Negative Urine Mucus (Negative) Negative Ur Culture Indicated? Yes Urine Glucose (Negative) mg/dL Negative ABO/Rh O Positive Antibody Screen NEGATIVE Range/Units 09/28/24 21:19 WBC (4.4-10.8) 10^3/uL RBC (3.93-5.22) 10^6/uL Hgb (11.2-15.7) g/dL Hct (36.0-46.0) % MCV (80-95) fL MCH (27.0-33.0) pg MCHC (32.0-36.0) % RDW (11.7-14.6) % Plt Count (130-400) 10^3/uL MPV (8.0-11.0) fL Immature Gran % % Neutrophils % % Lymphocytes % % Monocytes % % Eosinophils % % Basophils % % Nucleated RBC % (0.0-0.3) % Absolute Neutrophils (1.2-6.7) 10^3/uL Absolute Lymphocytes (1.2-3.4) 10^3/uL Absolute Monocytes (0.1-0.8) 10^3/uL Absolute Eosinophils (0.0-0.7) 10^3/uL Absolute Basophils (0.0-0.2) 10^3/uL Sodium (136-145) mmol/L Potassium (3.5-5.1) mmol/L Chloride (98-107) mmol/L Carbon Dioxide (21.0-32.0) mmol/L Anion Gap (3-11) mmol/L BUN (7-18) mg/dL Creatinine (0.55-1.02) mg/dL Est GFR (CKD-EPI 2020) (mL/min/1.73m2) Glucose (74-106) mg/dL Calcium (8.5-10.1) mg/dL Total Bilirubin (0.2-1.0) mg/dL AST (15-37) U/L ALT (14-59) U/L Alkaline Phosphatase (46-116) U/L Troponin I (<or=51) ng/L 9 Total Protein (6.4-8.2) g/dL Albumin (3.4-5.0) g/dL Lipase (<78) U/L Urine Color (Yellow) Urine Clarity (Clear) Urine pH (5-8) Ur Specific [place] (1.005-1.025) Urine Protein (Neg-Trace) mg/dL Urine Ketones (Negative) mg/dL Urine Blood (Negative) Urine Nitrite (Negative) Urine Bilirubin (Negative) Urine Urobilinogen (Up to 0.2) mg/dL Ur Leukocyte Esterase (Negative) Urine RBC (0-2) HPF Urine WBC (0-5) HPF Ur Epithelial Cells (Negative) HPF Urine Crystals (Negative) HPF Urine Bacteria (Negative) HPF Urine Casts (Negative) LPF Urine Mucus (Negative) Ur Culture Indicated? Urine Glucose (Negative) mg/dL ABO/Rh Antibody Screen Medical Decision Making Laboratory Studies Labs and troponin do not show evidence of acute abnormality. Imaging CTA chest, abdomen, and pelvis do not show evidence of any acute abnormality. Initial Assessment: 59-year-old female with a history of pancreatic aneurysm, Delmar-Danlos, POTS, AV fistula, fibromuscular dysplasia, and subdural hematoma presents with acute lower abdominal and chest pain. Recently diagnosed with COVID-19. Symptoms are concerning as they feel similar to a previous retroperitoneal hemorrhage. No cough, significant shortness of breath, fever, or chills. Mostly has a runny nose. Alert and oriented, in no acute distress. ED Course: - Labs and troponin do not show evidence of acute abnormality. - CTA chest, abdomen, and pelvis per radiology interpretation and my review do not show evidence of any acute abnormality. - Patient informed of findings. - Pain improved dramatically without significant intervention in the emergency department. - Physical exam: alert and oriented, tenderness on the left upper quadrant, no pulsatile mass or abdominal bruit, no CVA tenderness, distal pulses intact to all four extremities, lungs clear to auscultation. Final Assessment: The etiology of the pain remains uncertain. Pain has significantly subsided without major interventions. Labs, troponin, and CTA imaging do not show evidence of acute abnormality. Clinical Impression: - Acute lower abdominal and chest pain Disposition: - Follow-Up: Follow up with primary care physician in 1 to 2 days for reassessment. Take Tylenol as needed for pain. Return earlier if new or worsening complaints. MDM Components Evaluation: - Number of Differential Diagnoses or Management Options: Acute lower abdominal and chest pain - Amount and Complexity of Data Reviewed: Labs, troponin, CTA chest, abdomen, and pelvis - Risk of Complication and Morbidity or Mortality: Low risk based on current findings and improvement in symptoms. 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) Hypothyroidism (Chronic) Medical History Abdominal aortic aneurysm (AAA) w/o rupture 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 AVF (arteriovenous fistula) Biliary colic Breast mass Celiac artery stenosis Cholecystitis Chronic fatigue 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 Fibromuscular dysplasia History of renal calculi POTS (postural orthostatic tachycardia syndrome) Retroperitoneal hemorrhage Salivary duct stone Subdural hematoma Surgical History section Hernia repair History of surgical procedure coiling of aneurysm; laproscopic arcuate ligament release Hx of cholecystectomy S/P aneurysm repair Ruptured PDA S/P hysterectomy Family History Father Liver cancer Colon cancer A-fib Social History Smoking/Tobacco Use Status: Never Smoking risk assessment performed?: Yes Alcohol Intake: never Drug use: Never Substance use type: does not use Housing: house Do you feel safe at home: Yes Do you feel safe in your relationship?: Yes
== END 2024-09-28 22:53 | disposition home or self-care (01) ==
PROVIDERS: Emergency Provider Physician Assistant; PCP Family Medicine
DX: U07.1 COVID-19 (principal); R10.30 Lower abdominal pain, unspecified; G90.A Postural orthostatic tachycardia syndrome [POTS]; Q79.60 Ehlers-Danlos syndrome, unspecified; I77.3 Arterial fibromuscular dysplasia; Z79.82 Long term (current) use of aspirin
CPT/HCPCS: 71275; 80053; 83690; 86850; 86900; 86901; 93005; 96374; 96375; 99285; 74174; 81003; 81015; 84484; 85025; 87086; 93010; J1200; J2919; J3490

== ENCOUNTER 2024-10-05 10:08 | Emergency (ER) | payer BC, SELFPAY ==
[2024-10-05] VITALS (34 sets, daily range): BP systolic 105–168; BP diastolic 43–103; PULSE 57–94; RESP 8–20; TEMP 34.7; O2SAT 93–99
--- NOTE | 2024-10-05 10:15 | RT.EKG_ITS ---
APPROVED REPORT Exam: Resting ECG Reason for Exam: pericarditis Patient Location: E HR:84 bpm ECG Measurements Heart Rate 84 AXIS RI 143 P 74 QRSd 85 QRS 27 QT 372 T 74 QTc 441 Conclusion Sinus rhythm...normal P axis, V-rate 60- 99 No STEMI
--- NOTE | 2024-10-05 10:30 | DI.CT_ITS ---
Exam(s) CT HEAD WO EXAM: CT HEAD WO CLINICAL HISTORY: Left-sided numbness. TECHNIQUE: Imaging Protocol: Axial computed tomography images with coronal and sagittal reformatted images were created and reviewed COMPARISON: CT CT HEAD CERVICAL SPINE WO from 08/14/2024 FINDINGS: Ventricles and Extra axial spaces: Normal in size and morphology for the patient's age. Hemorrhage: None. Cerebral parenchyma: No evidence of acute infarct or mass. Midline shift: None. Brainstem/Cerebellum: Normal. Calvarium: Normal. Visualized Paranasal sinuses:Clear. Mastoids: Clear. Soft Tissues: Unremarkable. ORBITS: Unremarkable. PITUITARY: Not enlarged. IMPRESSION: No acute intracranial process. RADIATION DOSE DELIVERED: Total DLP DATA REPOSITORY: All CT scans at this facility are submitted to the National Radiology Data Registry (NRDR) Dose Index Registry (DIR) with the [employer] (ACR). RADIATION OPTIMIZATION: All CT scans at this facility use at least one of these dose optimization te chniques: automated exposure control; mA and/or kV adjustment per patient size (includes targeted exa ms where dose is matched to clinical indication); or iterative reconstruction.
--- NOTE | 2024-10-05 10:38 | ED.GENADUL_ITS ---
Discharge Plan Disposition Patient Disposition: Home Discharge Details Clinical Impression: Numbness and tingling sensation of skin, COVID-19 Primary Care Provider: Luther Toure ED Provider: Ayush Quintero Home Meds and New Rx's Prescriptions: No Action magnesium oxide 400 mg magnesium capsule 400 mg PO DAILY aspirin [Adult Aspirin Regimen] 81 mg tablet,delayed release (DR/EC) 81 mg PO DAILY omega 3-gge-hho-fish oil [Fish Oil] 60-90-500 mg capsule 1 cap PO DAILY levothyroxine [Synthroid] 75 MCG tablet 50 mcg PO DAILY multivitamin [Daily Multi-Vitamin] Tablet 1 tab PO DAILY sodium chloride 1,000 mg tablet,soluble 1,000 mg PO TID amoxicillin 500 mg capsule 500 mg PO TID Qty: 20 0RF acetaminophen [Tylenol Extra Strength] 500 mg Tablet 1,000 mg PO PRN PRN Discharge Instructions Instructions: Paresthesia (DC), COVID-19 ED Additional Instructions: At this time no emergent findings were noted. As discussed we will hold off on admission for MRI or further imaging but please follow-up with your neurology team at [facility] for further investigation of your symptoms if they persist At this time I do feel this is more symptoms of COVID but further testing is needed to rule out nonemergent diagnoses If you have any new or significant worsening of symptoms feel free to return the emergency department otherwise get plenty of rest and stay well-hydrated as you recover from viral illness Referrals: Luther Toure [Primary Care Provider] - 3 days (For reassessment and further referral as needed) HPI General Mode of arrival: wheelchair . Date/Time Provider Initiated Documentation: 10/05/24 10:09 . Limitations to Documentation: no limitations . Information obtained by: patient, family and RN notes reviewed . History of Present Illness 59 year old F presents to the emergency department with the chief complaint of Intermittent numbness left side, described as moderate, and is localized to the upper extremity and lower extremity. Patient started experiencing this day(s) (14) and it has been colicky. No relieving factors improve symptom(s), Patient notes chest pain, headaches, malaise and weakness; denies fever/chills, shortness of breath and syncope. Patient did receive the following treatments prior to arrival, other (Acetaminophen 5am) Related Data Home Medications ?Medication ?Instructions ?Recorded ?Confirmed Synthroid 75 mcg tablet 50 mcg PO DAILY 06/12/17 10/05/24 (levothyroxine) acetaminophen 500 mg tablet 1,000 mg PO PRN PRN 12/20/20 10/05/24 (Tylenol Extra Strength) magnesium oxide 400 mg PO DAILY 03/18/21 10/05/24 aspirin 81 mg tablet,delayed 81 mg PO DAILY 09/20/22 10/05/24 release (Adult Aspirin Regimen) omega 8-lnk-qxi-fish oil 60 mg-90 1 cap PO DAILY 09/20/22 10/05/24 mg-500 mg capsule (Fish Oil) multivitamin (Daily Multi-Vitamin 1 tab PO DAILY 10/25/22 10/05/24 tablet) sodium chloride 1,000 mg soluble 1,000 mg PO TID 10/25/22 10/05/24 tablet amoxicillin 500 mg capsule 500 mg PO TID #20 caps 09/27/24 10/05/24 Previous Rx's ?Medication ?Instructions ?Recorded amoxicillin 500 mg capsule 500 mg PO TID #20 caps 09/27/24 Allergies Allergy/AdvReac Type Severity Reaction Status Date / Time Iodinated Contrast Media Allergy Severe Anaphylaxis Verified 10/05/24 10:18 NSAIDS (Non-Steroidal Allergy Mild Other (See Verified 10/05/24 10:18 Anti-Inflamma Comment) cephalexin (From Keflex) Allergy Hives Verified 10/05/24 10:18 galcanezumab-gnlm (From Allergy angioedema Verified 10/05/24 10:18 Emgality Pen) nitrofurantoin (From Allergy Nausea Verified 10/05/24 10:18 Macrobid) propranolol Allergy tongue Verified 10/05/24 10:18 swelling Sulfa (Sulfonamide Allergy Skin Rash Unverified 10/05/24 10:18 Antibiotics) sulfamethoxazole (From Allergy Skin Rash Unverified 10/05/24 10:18 Bactrim) trimethoprim (From Bactrim) Allergy Skin Rash Unverified 10/05/24 10:18 Quinolones AdvReac Intermediate Contraindic Verified 10/05/24 10:18 ated General Stated Complaint: CVA/TIA MARIS: 2 Review of Systems Constitutional Constitutional: Denies chills, Reports fatigue, Denies fever(s), Reports headache(s), Reports lethargy, Reports malaise and Reports weakness Eyes Eyes: Reports seeing flashes ENT Ears, Nose, Mouth, and Throat: Reports headache(s), Denies nasal congestion, Denies neck pain and Denies sore throat Cardiovascular Cardiovascular: Reports chest pain (None at this time), Denies syncope, Denies leg edema, Denies lightheadedness, Denies dyspnea and Denies dyspnea on exertion Respiratory Respiratory: Denies cough, Denies dyspnea and Denies dyspnea on exertion Gastrointestinal Gastrointestinal: Denies abdominal pain, Denies nausea and Denies vomiting Musculoskeletal Musculoskeletal: Reports myalgias, Reports muscle weakness, Denies neck pain, Reports numbness and Reports tingling Integumentary/Breasts Skin/Breast: Denies rash Neurologic Neurologic: Reports as per HPI, Denies syncope, Reports headache(s), Reports numbness, Reports tingling and Reports weakness Endocrine Endocrine: Reports fatigue Exam Const General: cooperative and no acute distress Orientation: alert, awake and oriented x3 HENMT Head: normal to inspection Ears: hearing grossly normal bilaterally and TM's normal bilaterally Mouth: oral mucosae normal and moist mucous membranes Throat: posterior oropharynx normal Eyes Visual Mendoza: normal visual mendoza by confrontation Alignment and Position: alignment normal Periorbital: periorbital findings normal Eyelids: eyelids normal Sclera: sclerae normal Pupils: PERRL EOM: EOM intact bilaterally Neck Neck: normal visual inspection, full ROM and no meningeal signs Resp Effort & Inspection: normal respiratory effort and able to speak in complete sentences Auscultation: clear to auscultation bilaterally Cardio Rate: regular rate Rhythm: regular rhythm Heart Sounds: S1 normal and S2 normal Neuro General: patient alert, patient awake, patient oriented x3, gait normal, tone normal, moves all extremities, CN's II-XI intact bilaterally and not confused Cognition: normal cognition Speech: speech normal Motor: muscle tone normal throughout, no pronator drift, no movement abnormalities noted and no fasciculations Sensory Exam: no sensory deficits noted Coordination: Does not sway with eyes open Course Vital Signs Vital signs: Vital Signs Temperature 34.7 C L 10/05/24 10:11 Pulse 94 H 10/05/24 10:11 Respiratory Rate 20 10/05/24 10:11 Blood Pressure 156/103 H 10/05/24 10:11 Pulse Oximetry 99 10/05/24 10:11 Temperature 34.7 C L 10/05/24 10:11 Temperature Source Oral 10/05/24 10:11 Pulse 94 H 10/05/24 10:11 Respiratory Rate 20 10/05/24 10:11 Blood Pressure 156/103 H 10/05/24 10:11 Blood Pressure Position Supine 10/05/24 10:11 Pulse Oximetry 99 10/05/24 10:11 Oxygen Delivery Method Room Air 10/05/24 10:11 Oxygen Flow Rate 0 10/05/24 10:11 Pain Level 4 10/05/24 10:11 Medical Decision Making Patient presenting to the emergency department for chief complaint of headache and some left-sided numbness. She reports that she is at the tail end of having a COVID infection which has mostly presented with neurological symptoms and some chest pain. Patient was seen in the emergency department on 09/29 and discharged and then had follow-up with primary care provider on and sent to [facility] [place] and was diagnosed with small pericardial effusion with suspicion of pericarditis. She states this entire time she has had odd neurological symptoms with left- sided numbness and headache but does report some right-sided symptoms as well with symptoms seeming to wax and wane and feels at times like her skin is crawling. States muscle weakness over that was worse a couple days ago. Beyond subjective left-sided numbness to light touch of the left arm and leg neurological exam cardiac exam respiratory exam and HEENT exam is all unremarkable without contributing findings. Patient does have significant history of subdural hematoma, Delmar Danlos, PAD aneurysm, migraine headaches, and hypothyroidism. Will perform EKG given recent diagnosis of pericarditis and effusion and lab work along with CT Noncon head. Pending results will give patient acetaminophen given that it has been about 6 hours since last dose. Will continue to monitor. Chief differential diagnosis is atypical COVID presentation but will also consider TIA, migraine headache, global myopathy secondary to viral infection. Please see Dr. Diez's interpretation of EKG for full report but upon my review patient is in sinus rhythm without any significant findings of acute ischemia. And given recent diagnosis or suspicion of pericarditis no signs of global ST changes noted. Reviewed CT imaging that shows no territorial infarct or cranial bleed per radiologist interpretation and patient has an CT aspect score of 10. Reviewed patient's labs that show slight elevated glucose of 152 otherwise unremarkable CMP, did check a CK given patient's muscular symptoms which shows a low level at 19, initial troponin is 7 which is considered negative at this time patient still pending CBC and urinalysis. Did review CBC and urinalysis which were nonemergent with no worrisome findings noted at this time. Reassessed patient and patient states significant improvement after receiving the IV acetaminophen. Discussed with patient transient and migratory symptoms that do not seem consistent with TIA or stroke but that MRI would be needed for further investigation. Shared decision making was utilized to discuss consideration of admission versus following up with her neurology team at [facility] [place] which is the decision she finally wanted to go with and agreed that admission at this time did not seem to be purposeful given that she can take Tylenol and stay hydrated at home. I do have high suspicion that this is more postviral type symptoms from her recent COVID infection and do not see any need for emergent intervention at this time. After discussion of diagnosis and plan of care patient has no further needs, questions, or concerns and states clear understanding to return to the emergency department for any worsening symptoms. This documentation was generated using [email or web address] dictation system, please disregard any oddities of phrase or misspellings. 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) Hypothyroidism (Chronic) Medical History Retroperitoneal hemorrhage Failure to thrive in adult Biliary colic Celiac artery stenosis History of renal calculi Subdural hematoma Fibromuscular dysplasia Chronic fatigue Abdominal aortic aneurysm (AAA) w/o rupture 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 AVF (arteriovenous fistula) Breast mass POTS (postural orthostatic tachycardia syndrome) Delmar-Danlos syndrome Salivary duct stone Cholecystitis Surgical History S/P aneurysm repair Ruptured PDA S/P hysterectomy History of surgical procedure coiling of aneurysm; laproscopic arcuate ligament release Hx of cholecystectomy Hernia repair section Family History Father Liver cancer Colon cancer A-fib Social History Smoking/Tobacco Use Status: Never Smoking risk assessment performed?: Yes Alcohol Intake: never Drug use: Never Substance use type: does not use Housing: house Do you feel safe at home: Yes Do you feel safe in your relationship?: Yes
[2024-10-05 10:42] LABS: Abs Immature Grans 0.02 10^3/uL (0.0-0.06); Absolute Basophil Count 0.02 10^3/uL (0.0-0.2); Absolute Eosinophil Count 0.05 10^3/uL (0.0-0.7); Absolute Lymphocyte Count 1.79 10^3/uL (1.2-3.4); Absolute Monocyte Count 0.22 10^3/uL (0.1-0.8); Absolute Neutrophil Count 1.51 10^3/uL (1.2-6.7); Basophils % 0.6 %; Eosinophils % 1.4 %; HCT 43.4 % (36.0-46.0); HGB 15.2 g/dL (11.2-15.7); Immature Grans % 0.6 %; Lymphocytes % 49.6 %; MCH 30.3 pg (27.0-33.0); MCV 87 fL (80-95); MPV 9.6 fL (8.0-11.0); Monocytes % 6.1 %; Neutrophils % 41.7 %; Platelet Count 202 10^3/uL (130-400); RBC 5.01 10^6/uL (3.93-5.22); RDW 12.4 % (11.7-14.6); WBC 3.61 10^3/uL (4.4-10.8)
--- NOTE | 2024-10-05 10:57 | DI.VRAD_ITS ---
PROCEDURE INFORMATION: Exam: CT Head Without Contrast Exam date and time: 10/05/2024 10:46 AM Age: 59 years old Clinical indication: Stroke-like symptoms; Other: Left sided numbness numbness/paresthesia TECHNIQUE: Imaging protocol: Computed tomography of the head without contrast. Other technique: STROKE PROTOCOL was implemented. COMPARISON: CT HEAD CERVICAL SPINE WO 08/14/2024 5:49 PM FINDINGS: Brain: Normal. No hemorrhage. Unremarkable white matter. No mass effect. Cerebral ventricles: No ventriculomegaly. Paranasal sinuses: Mild mucosal disease of the left ethmoid air cells. Mastoid air cells: Visualized mastoid air cells are well aerated. Bones: Unremarkable. No acute fracture. Soft tissues: Unremarkable. IMPRESSION: No large territorial infarct or intracranial bleed. ASSESSMENT: ASPECTS ([place] Stroke Program Early CT Score) is 10. Dictated and Authenticated by: Isaiah Taylor MD. Orderin Inrgid Peacock MD
[2024-10-05 11:04] LABS: ALT 34 U/L (14-59); AST 15 U/L (15-37); Alkaline Phosphatase 100 U/L (46-116); Anion Gap 10.3 mmol/L (3-11); BUN 6 mg/dL (7-18); Bilirubin, Total 0.44 mg/dL (0.2-1.0); CO2 27.7 mmol/L (21.0-32.0); CREATININE 0.7 mg/dL (0.55-1.02); Calcium 9.7 mg/dL (8.5-10.1); Chloride 104 mmol/L (98-107); Creatine Kinase 19 U/L (26-192); Estimated GFR 98.34 (mL/min/1.73m2); Glucose 152 mg/dL (74-106); Magnesium 1.8 mg/dL (1.8-2.4); Potassium 3.7 mmol/L (3.5-5.1); Sodium 142 mmol/L (136-145); Total Protein 7.5 g/dL (6.4-8.2); Troponin I 7 ng/L (<or=51)
[2024-10-05 11:31] LABS: Bilirubin Negative (Negative); Blood Negative (Negative); Clarity Clear (Clear); Glucose Negative (Negative); Ketones Negative (Negative); Leukocyte Esterase Negative (Negative); Nitrite Negative (Negative); Specific Gravity 1.015 (1.005-1.025); Urobilinogen 0.2 mg/dL (Up to 0.2); pH 7.5 (5-8)
[2024-10-05 11:59] LABS: Troponin I 6 ng/L (<or=51)
[2024-10-05] MEDS: ACETAMINOPHEN 500 MG/50 ML BAG 200 MG IVPB (12:11)
== END 2024-10-05 13:53 | disposition home or self-care (01) ==
PROVIDERS: Emergency Provider Nurse Practitioner Family; PCP Family Medicine
DX: R20.0 Anesthesia of skin (principal); R07.9 Chest pain, unspecified; G90.A Postural orthostatic tachycardia syndrome [POTS]; Q79.60 Ehlers-Danlos syndrome, unspecified; Z79.82 Long term (current) use of aspirin
CPT/HCPCS: 36415; 80053; 82550; 93005; 96374; 99285; 70450; 81003; 83735; 84484; 85025; 93010; 99284; J0131

== ENCOUNTER 2025-07-09 13:35 | Emergency (ER) | payer BC, SELFPAY ==
[2025-07-09 13:59] VITALS: BP 154/86; PULSE 83; RESP 18; TEMP 37.6; O2SAT 96
--- NOTE | 2025-07-09 14:09 | W.ED.GENAD ---
Discharge Plan Disposition Patient Disposition: Home Condition: Stable Discharge Details Clinical Impression: Dysuria Primary Care Provider: Luther Toure ED Provider: Vinnie Cage Home Meds and New Rx's Prescriptions: Continued magnesium oxide 400 mg magnesium capsule 400 mg PO DAILY aspirin [Adult Aspirin Regimen] 81 mg tablet,delayed release (DR/EC) 81 mg PO DAILY omega 6-dxv-mvo-fish oil [Fish Oil] 60-90-500 mg capsule 1 cap PO DAILY levothyroxine [Synthroid] 75 MCG tablet 50 mcg PO DAILY multivitamin [Daily Multi-Vitamin] Tablet 1 tab PO DAILY sodium chloride 1,000 mg tablet,soluble 1,000 mg PO TID acetaminophen [Tylenol Extra Strength] 500 mg Tablet 1,000 mg PO PRN PRN Discharge Instructions Instructions: Dysuria (ED) Stand Alone Forms: Portal Information Discharge Data Discharge Physician: Vinnie Cage [facility] General Date/Time Provider Initiated Documentation: 07/09/25 14:05. HPI Narrative: Patient presents emergency department who was recently diagnosed with non-Hodgkin's lymphoma and started chemotherapy last Monday 4 days ago. States that he woke up this morning with urinary frequency urgency generalized bodyaches nauseous and unable to take any p.o. intake was dehydrated. Also reported yesterday lower abdominal discomfort but no diarrhea. Reports low-grade fever and chills Related Data Home Medications ?Medication ?Instructions ?Recorded ?Confirmed Synthroid 75 mcg tablet 50 mcg PO DAILY 06/12/17 07/09/25 (levothyroxine) acetaminophen 500 mg tablet 1,000 mg PO PRN PRN 12/20/20 07/09/25 (Tylenol Extra Strength) magnesium oxide 400 mg PO DAILY 03/18/21 07/09/25 aspirin 81 mg tablet,delayed 81 mg PO DAILY 09/20/22 07/09/25 release (Adult Aspirin Regimen) omega 7-wtw-bqc-fish oil 60 mg-90 1 cap PO DAILY 09/20/22 07/09/25 mg-500 mg capsule (Fish Oil) Held on 07/09/25. Instructions: holding now multivitamin (Daily Multi-Vitamin 1 tab PO DAILY 10/25/22 07/09/25 tablet) sodium chloride 1,000 mg soluble 1,000 mg PO TID 10/25/22 07/09/25 tablet Allergies Allergy/AdvReac Type Severity Reaction Status Date / Time Iodinated Contrast Media Allergy Severe Anaphylaxis Verified 07/09/25 14:02 NSAIDS (Non-Steroidal Allergy Mild Other (See Verified 07/09/25 14:02 Anti-Inflamma Comment) cephalexin (From Keflex) Allergy Hives Verified 07/09/25 14:02 galcanezumab-gnlm (From Allergy angioedema Verified 07/09/25 14:02 Emgality Pen) nitrofurantoin (From Allergy Nausea Verified 07/09/25 14:02 Macrobid) propranolol Allergy tongue Verified 07/09/25 14:02 swelling Sulfa (Sulfonamide Allergy Skin Rash Unverified 07/09/25 14:02 Antibiotics) sulfamethoxazole (From Allergy Skin Rash Unverified 07/09/25 14:02 Bactrim) trimethoprim (From Bactrim) Allergy Skin Rash Unverified 07/09/25 14:02 Quinolones AdvReac Intermediate Contraindic Verified 07/09/25 14:02 ated General Stated Complaint: Urinary MARIS: 3 Review of Systems Narrative: Review of Systems: Constitutional: No fevers, chills, sweats Eye: No recent visual problems ENT: No ear pain, nasal congestion, sore throat Respiratory: No shortness of breath, cough Cardiovascular: No Chest pain, palpitations, syncope Gastrointestinal: No nausea, vomiting, diarrhea Genitourinary: No hematuria Duran/Lymph: Negative for bruising tendency, swollen lymph glands Endocrine: Negative for excessive thirst, excessive hunger Musculoskeletal: No back pain, neck pain, joint pain, muscle pain, decreased range of motion Integumentary: No rash, pruritus, abrasions Neurologic: Alert & oriented X 4 Psychiatric: No anxiety, depression Exam Narrative Exam Narrative: Exam; vitals signs as reported above normal Constitutional; In no acute distress, afebrile General: cooperative, healthy appearing, comfortable and no acute distress HEENT: Head: normal to inspection, no palpable skull fracture and normocephalic atraumatic Eyes: : appearance normal, both eyes and all related structures EOM intact bilaterally Pupils: PERRL : conjunctiva normal Direct ophthalmoscopy: normal light reflex, normal conjunctiva, normal visual acuity Ears: Normal TM, normal external canal Nose: normal no rhinorreha Neck no JVD, supple non tender Neck: normal visual inspection, full ROM and no lymphadenopathy Chest: normal inspection of the chest Respiratory : normal respiratory effort and able to speak in complete sentences no wheezing no rales Cardio Rate: regular rate, rhythm: regular rhythm normal heart sounds S1 and S2 no murmurs, gallops, or rubs GI : normal to inspection, normal bowel sounds, soft, non tender, non distended, no organomegaly Back/Spine/ no CVA tenderness Thoracic/Lumbar Spine: no tenderness or deformities Skin no rashes or lesions Neuro: patient alert oriented x 4 and no meningeal signs, Cranial Nerves: CN's II-XI intact bilaterally, Cognition: normal cognition, Speech: speech normal, Gait: normal gait, Depp tendon reflexes normal 2+ muscle strength 5/5 bilaterally Extremities, no edema, full range of motion, normal strength Course After explaining to the patient that she needed a septic workup and the nurse Jose A came to problem as she said that there was understanding that she came to the emergency department because they told her the entrance to go when here but she actually was sent to the lab to get a urinalysis from her double end trimmer. But she did not want to get a workup and this time she does not want to stay wants to go home. She states that there was misunderstanding and that she did not know that she had to come to the ER but she needed just to come to the lab visit at this time she does not want any workup and that she spoke with hematology and told her that it is just basically side effect from chemotherapy. She wants to be discharged from the Vital Signs Vital signs: Vital Signs Temperature 37.6 C H 07/09/25 13:59 Pulse 83 07/09/25 13:59 Respiratory Rate 18 07/09/25 13:59 Blood Pressure 154/86 H 07/09/25 13:59 Pulse Oximetry 96 07/09/25 13:59 Temperature 37.6 C H 07/09/25 13:59 Temperature Source Oral 07/09/25 13:59 Pulse 83 07/09/25 13:59 Respiratory Rate 18 07/09/25 13:59 Blood Pressure 154/86 H 07/09/25 13:59 Pulse Oximetry 96 07/09/25 13:59 Pain Level 7 07/09/25 13:59 Medical Decision Making MDM: Summary: Patient with hematemesis department with states she had urine frequency blood. She states that she cannot stick into her stool to the lab to get a urinalysis and to the ER she declined any septic workup. She is well aware and her is with this as well as because the nurse that she wanted because she plans to take enema. In the emergency department. Data Review Analysis All the data on this patient was reviewed by me including laboratory and imaging studies as well as bedside studies performed by me Independent review of Studies Imaging Lab: Urinalysis anything that we obtained and is negative for pyuria or bacteriuria Risk Stratification: Differential Diagnosis: 1. 2. 3. 4. 5. Consultants: Shared disposition: Patient is insistent she does not want to be here in the ER and I am opposed to signing Shanelle form so she says she made a statement she was supposed to go to the lab Impression: Quality:SDOH Health Related Social Needs: Health related social needs daily activities PFSH All Active Problems (Updated 07/09/25 @ 15:31 by Vinnie Cage MD) Dysuria (Acute) COVID-19 (Acute) Pharyngoesophageal dysphagia (Acute) Nephrolithiasis (Chronic) Migraine headache without aura (Acute) Migraine headache with aura (Acute) Chronic subdural hematoma (Acute) Headache (Acute) Nausea (Acute) Visual changes (Acute) Renal cyst (Acute) 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) Hypothyroidism (Chronic) Medical History Retroperitoneal hemorrhage Failure to thrive in adult Biliary colic Celiac artery stenosis History of renal calculi Subdural hematoma Fibromuscular dysplasia Chronic fatigue Abdominal aortic aneurysm (AAA) w/o rupture 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 AVF (arteriovenous fistula) Breast mass POTS (postural orthostatic tachycardia syndrome) Delmar-Danlos syndrome Salivary duct stone Cholecystitis Surgical History S/P aneurysm repair Ruptured PDA S/P hysterectomy History of surgical procedure coiling of aneurysm; laproscopic arcuate ligament release Hx of cholecystectomy Hernia repair section Family History Father Liver cancer Colon cancer A-fib Social History Smoking/Tobacco Use Status: Never Smoking risk assessment performed?: Yes Alcohol Intake: never Drug use: Never Substance use type: does not use Housing: house Do you feel safe at home: Yes Do you feel safe in your relationship?: Yes Vital Signs & Lab Results Vital Signs Most Recent Vital Signs: Most Recent Vital Signs Temp Pulse Resp BP Pulse Ox 37.6 C H 83 18 154/86 H 96 07/09/25 14:16 07/09/25 14:16 07/09/25 14:16 07/09/25 14:16 07/09/25 14:16 Lab Results 07/09/25 14:21 07/09/25 14:21 Complete Blood Count: VBG Lactate Pending Today, 14:21
[2025-07-09 14:16] VITALS: BP 154/86; PULSE 83; RESP 18; TEMP 37.6; O2SAT 96
[2025-07-09 14:32] LABS: Glucose Negative (Negative)
--- NOTE | 2025-07-09 16:01 | NUR.NOTE ---
Went to start IV on pt and draw labs. Pt reported that she believes she was only supposed to come to the lab to give a urine sample. Pt reports that she does not need to be in the ED and was unsure of the process when she checked in. She thought she would just come in and give a urine and wait for results. She stated she asked the caesar at the front if she had to check in or go to the lab, and he told her she needed to check in. There was confusion/miscommunication about what her DrCatina wanted her to do. Therefore, she asked to speak with the MD. Pt, , RN, and MD discussed shared decision making. Pt understood risk of leaving without a workup, but appeared to not be an AMA situation, but a miscommunication. Pt was informed that if anything were to change, if she developed fever, chills, tachycardia, signs of infection, to return to the ED. She verbalized understanding. Pt orders were cancelled and pt was discharge. UA was run and pt did not have a UTI (which was the concern when she arrived). Karlos Reyes. Nursing Note:
[2025-07-09 16:11] VITALS: BP 154/75; PULSE 76; RESP 16; TEMP 37.4; O2SAT 95
== END 2025-07-09 16:12 | disposition home or self-care (01) ==
PROVIDERS: Emergency Provider Emergency Medicine Emergency Medical Services; PCP Family Medicine
DX: R30.0 Dysuria (principal); C85.90 Non-Hodgkin lymphoma, unspecified, unspecified site; Z79.82 Long term (current) use of aspirin; Z92.21 Personal history of antineoplastic chemotherapy; Z53.29 Procedure and treatment not carried out because of patient's decision for other reasons
CPT/HCPCS: 80053; 84145; 87040; 99282; 81003; 83605; 84550; 85025; 85610